=== PATIENT | female | born 1955 | race Caucasian/White ===

== ENCOUNTER → 2019-08-03 11:05 | Outpatient (CLI) | payer MEDICARE, SELFPAY ==
--- NOTE | ~2019-08-03 | XR_ITS ---
EXAMINATION: XR chest 2V EXAM DATE: 08/03/2019 11:38 INDICATION: Cough. TECHNIQUE: Frontal and lateral projections of the chest obtained and reviewed. Comparison is made to prior examination from 12/16/2017. FINDINGS: The lungs are clear. There are no pleural effusions. The cardiomediastinal silhouette is within normal limits. There is no pneumothorax suspected. The bones and soft tissues are unremarkab le. IMPRESSION: No acute cardiopulmonary findings. Reviewed, dictated and finalized at location A. ZAG STITCHER
== END ==
PROVIDERS: PCP Nurse Practitioner; Visit Provider Nurse Practitioner
DX: R05 Cough (principal)
CPT/HCPCS: 71046

== ENCOUNTER → 2019-08-15 12:18 | Outpatient (CLI) | payer MEDICARE, SELFPAY ==
--- NOTE | ~2019-08-15 | CT_ITS ---
EXAMINATION: CT abdomen pelvis wo con EXAM DATE: 08/15/2019 12:35 INDICATION: Right upper quadrant pain, nausea, diarrhea, weight loss, hypertension. TECHNIQUE: Spiral CT of the abdomen and pelvis was performed without contrast. Axial, coronal and s agittal images were reviewed. The dose-length product (DLP) for this examination was 805.15 mGy-cm. The exposure was tailored according to patient size (auto mA exposure control), and iterative recons truction (ASIR) was used as additional dose reduction technique. There is no prior study for compari son. FINDINGS: The liver, spleen, adrenal glands and pancreas are unremarkable. Gallbladder is unremarkab le. No biliary obstruction. There is no nephrolithiasis or hydronephrosis. The uterus is unremark able. The bladder is unremarkable. There is no retroperitoneal or pelvic lymphadenopathy. There is moderate scattered arteriosclerotic disease. The appendix is not positively visualized. There is no pericecal inflammatory change to suggest appe ndicitis. There is small to moderate-sized gastroesophageal hiatal hernia. There is gastroesophagea l reflux. There is expected amount of colonic stool. No free intraperitoneal gas. The heart is n ormal in size. There are no pericardial or pleural effusions. The lung bases are unremarkable. The re are no osteoblastic or osteolytic lesions identified. IMPRESSION: 1. No acute intra-abdominal findings. 2. Small to moderate hiatal hernia, gastroesophageal reflux. Reviewed, dictated and finalized at location A. RAL STERILE SUPPLY TECHNICIAN
== END ==
PROVIDERS: PCP Nurse Practitioner; Visit Provider Nurse Practitioner
DX: E83.52 Hypercalcemia (principal); K44.9 Diaphragmatic hernia without obstruction or gangrene; K21.9 Gastro-esophageal reflux disease without esophagitis
CPT/HCPCS: 74176

== ENCOUNTER 2019-08-15 14:56 | Inpatient (IN) | payer MEDICARE, SELFPAY ==
--- NOTE | ~2019-08-15 | US_ITS ---
US renal BI 08/16/2019 18:14 Procedure: Realtime transabdominal ultrasound of the kidneys and bladder. Indication: Acute renal failure Comparison: No prior studies for comparison. Findings: Renal echotexture is normal bilaterally without, contour deforming mass or renal calculus. There is mild left renal caliectasis. The right kidney measures 11.5 cm and left kidney measures 11.8 cm. Bladder within normal limits. Impression: 1: Mild left renal caliectasis. Reviewed, dictated and finalized at location A. ETCHER Impression: 1: Mild left renal caliectasis.
[2019-08-15 15:05] VITALS: BP 118/68; PULSE 100; RESP 19; TEMP 36.2; O2SAT 95
--- NOTE | 2019-08-15 15:42 | ED.RECABL ---
HPI - Recheck/Abnormal Lab/Rx General Chief Complaint: Recheck/Abnormal Lab/Rx Stated Complaint: low mag level Time Seen by Provider: 08/15/19 15:30 Source: patient and RN notes reviewed Mode of arrival: ambulatory Limitations: no limitations History of Present Illness HPI narrative: Pt is a 63 y/o female who presents to the ED with c/o abnormal lab results. She states she had blood work done at her PCP recently and was informed today of the results. She states she was told her magnesium levels were low and was prompted to come to the ED to be evaluated and treated via IV fluids. She reports nausea and vomiting since yesterday and generalized weakness, but denies diarrhea. She has been unable to keep her food down mainly. She states she has tried Zofran medication and shots of anti-nausea medication without much relief of her symptoms. Pt reports she had a CT scan of her ABD and pelvis done at [facility] without a formal diagnosis given. She states she has lost 25 pounds recently. complaint: abnormal lab Initial visit (ago): hour(s) (today) Context: called for abnormal lab result Associated symptoms: nausea and other (generalized weakness; vomiting) Related Data Home Medications Medication Instructions Recorded Confirmed amlodipine 2.5 mg tablet 2.5 mg PO DAILY 07/05/19 aspirin 81 mg tablet,delayed 81 mg PO DAILY 07/05/19 release blood sugar diagnostic #10 each 07/05/19 insulin lispro 100 unit/mL 15 unit SUB-Q BID ml 07/05/19 subcutaneous pen multivitamin,ll-bzlb-rhplsfal 1 tablet PO DAILY 07/05/19 pen needle, diabetic 31 gauge x #30 each 07/05/19 5/16 rosuvastatin 20 mg tablet 10 mg PO DAILY tablet 07/05/19 valsartan 160 1 tablet PO DAILY 07/05/19 mg-hydrochlorothiazide 25 mg tablet Allergies Allergy/AdvReac Type Severity Reaction Status Date / Time No Known Allergies Allergy Unverified 08/15/19 15:11 Review of Systems Review of Systems: All systems reviewed & are unremarkable except as noted in HPI and below Constitutional: Constitutional: Reports weakness (generalized) Gastrointestinal: Gastrointestinal: Denies diarrhea, Reports nausea and Reports vomiting PMFSH Past Medical History Medical History (Updated 08/15/19 @ 18:49 by Savage Johnston MD) Depression Diabetes GERD (gastroesophageal reflux disease) Hiatal hernia Hypercholesterolemia Mitral valve prolapse Peripheral neuropathy Pneumonia UTI (urinary tract infection) Surgical History Surgical History (Updated 08/15/19 @ 15:46 by Mylene Randhawa) History of arthroscopy of both knees Social History Social History Smoking status: Former smoker Smoking end date: 06/27/82 Alcohol intake: current Gender identity (if verbalized by the patient): Female Exam Narrative: Exam Narrative: GENERAL: Well-appearing, well-nourished, and in no acute distress. HEAD: Normocephalic, atraumatic. ENT: Mucous membranes moist. CHEST: Clear to auscultation. No respiratory distress. HEART: Regular rate and rhythm. Normal peripheral pulses. ABDOMEN: Soft, nontender, nondistended. EXTREMITIES: Normal range of motion. No edema. SKIN: Warm, dry, no rash. NEURO: Alert and oriented x3. PSYCH: Normal mood and affect. Course Course Emergency Course: Informed of results. Admit to hospitalist service for IV fluid and magnesium replacement. May require nephrology consultation if renal function is not improving. Vital Signs Vital signs: Vital Signs Temperature 97.1 F L 08/15/19 15:05 Pulse Rate 100 08/15/19 15:05 Respiratory Rate 08/15/19 15:05 Blood Pressure 118/68 08/15/19 15:05 Pulse Oximetry 95 08/15/19 15:05 Temperature 97.1 F L 08/15/19 15:05 Pulse Rate 100 08/15/19 15:05 Respiratory Rate 08/15/19 15:05 Blood Pressure 118/68 08/15/19 15:05 Pulse Oximetry 95 08/15/19 15:05 MDM - Recheck/Abnormal Lab/Rx Lab Data Re
[2019-08-15 16:05] LABS: Basophils Percent Auto 0.3 % (0.2-1.2); Eosinophils Absolute Auto 0.1 K/mm3 (0-0.3); Eosinophils Percent Auto 1.2 % (0-4.4); Hematocrit 35.7 % (37.0-47.0); Hemoglobin 11.3 g/dL (12.0-15.0); Immature Granulocyte Absolute 0.04 K/mm3 (0.00-0.031); Immature Granulocyte Percent A 0.4 % (0-0.5); Lymphocytes Absolute Auto 2.37 K/mm3 (0.9-3.2); Lymphocytes Percent Auto 24.1 % (18.3-44.2); Mean Corpuscular HGB Conc 31.7 g/dl (32-36); Mean Corpuscular Hemoglobin 26.7 pg (26-34); Mean Corpuscular Volume 84.4 fl (80-100); Mean Platelet Volume 10.8 fl (7.4-10.4); Monocytes Absolute Auto 0.9 K/mm3 (0.1-0.6); Monocytes Percent Auto 8.8 % (2.6-8.5); Neutrophils Absolute Auto 6.4 K/mm3 (1.3-6.7); Neutrophils Percent Auto 65.2 % (45.5-73.1); Platelet Count Result 412 k/mm3 (150-375); Red Blood Count 4.23 M/mm3 (4.2-5.4); White Blood Count 9.8 K/mm3 (4.5-10.0)
[2019-08-15 16:17] LABS: Blood Urea Nitrogen 35 mg/dL (7-17); Calcium 9.3 mg/dL (8.4-10.2); Carbon Dioxide 25 mmol/L (22-30); Chloride 89 mmol/L (98-107); Estimated CRCL calculation 23 ml/min; Estimated Glomerular Filt Rate 23; Glucose 176 mg/dL (65-105); Potassium 3.2 mmol/L (3.4-5.0); Sodium 134 mmol/L (137-145)
[2019-08-15] MEDS: PROMETHAZINE HCL 25 MG/ML AMPUL 12.5 MG IV PUSH (16:51)
[2019-08-15] MEDS: SODIUM CHLORIDE 0.9% IV 1,000 ML 999 ML IV CONT (16:51)
[2019-08-15 18:46] VITALS: BP 115/73; PULSE 93; RESP 20; O2SAT 100
[2019-08-15] MEDS: MAGNESIUM SULF 2 GM/WATER 50ML 2 GM/50 ML BAG IVPB (18:52)
[2019-08-15 19:36] VITALS: BP 102/67; PULSE 89; RESP 13; O2SAT 100
[2019-08-15 21:05] LABS: Glucose Point of Care 148 (65-105)
[2019-08-15] MEDS: SODIUM CHLORIDE 0.9% IV 1,000 ML 125 ML IV CONT (21:47)
[2019-08-15 21:50] VITALS: BP 116/67; PULSE 89; RESP 18; TEMP 36; O2SAT 100; BMI 31.6
--- NOTE | 2019-08-15 21:59 | PC.NURSE ---
This patient, Elke Pink, was admitted to Medical Room 260-01 at 1950. Patient/family oriented to hospital policies and general routines including ID bracelet, bed and alarms, visiting hours, pain management, procedures, bathroom and other care routines, personal items, smoking policy, room service/diet, and visiting hours. Valuables list has been completed. Information on how to activate the Rapid Response Team has been discussed. Patient/Family are encouraged to report perceived risks to care and to ask questions if they do not understand what they are told or what they should do.
--- NOTE | 2019-08-16 05:29 | PM.IMHP ---
H&P: HPI History of Present Illness Chief complaint: acute renal failure/hypomagnesemia Narrative: This is a pleasant 63-year-old diabetic female who presented to the hospital today secondary to abnormal lab values. The patient recently had blood work done by her primary care doctor and was referred to the hospital for low magnesium. On arrival to the hospital the patient was found to have a magnesium level of 1.0. Patient received 2 g of IV magnesium in the ER last night. She reports increased nausea and vomiting for the past 6 weeks which has been debilitating for her. Her nausea and vomiting is associated with any food or fluid intake and she tells me she has not been able to keep anything down. She reports 25 lb weight loss over the past 6 weeks. Associated symptoms include weakness. She also reports loose stools. She has had intermittent muscle cramping recently. The patient has no previous history of abnormal kidney function. Tonight the patient was found to have acute kidney injury. She reports that she recently just started taking Ozempic for her diabetes 6 weeks ago. She is also known to take Advil every single night. She has not been exposed to contrast recently. Up until now the patient has only been treated with symptomatic therapy for her nausea and vomiting. On my encounter with the patient this morning she denies any fever, chills, shortness of breath, chest pain, palpitations, abdominal pain, vomiting overnight, dysuria, hematuria, rectal bleeding, or other symptoms. The patient has been admitted to the hospital for her acute renal failure and hypomagnesemia. Review of Systems Review of Systems: All systems reviewed & are unremarkable except as noted in HPI and below PMFSH Past Medical History Medical History (Updated 08/16/19 @ 05:47 by Ángel Tanner MD) Depression Diabetes GERD (gastroesophageal reflux disease) Hiatal hernia Hypercholesterolemia Mitral valve prolapse Peripheral neuropathy Pneumonia UTI (urinary tract infection) Surgical History Surgical History (Updated 08/16/19 @ 05:34 by Ángel Tanner MD) History of arthroscopy of both knees History of foot surgery Family History Family History Grandparent Family history of cardiovascular disease Diabetes mellitus Mother Hypertension Chronic obstructive pulmonary disease Other Depression Family history of blood dyscrasia Family history of cataracts Family history of glaucoma Family history of hearing loss Family history of kidney disease Family history of malignant neoplasm Family history of mental disorder Family history of obesity Social History Social History Smoking status: Former smoker Smoking end date: 06/27/82 Alcohol intake: never Substance use: never Substance use type: does not use Gender identity (if verbalized by the patient): Female Spiritual care concerns: Yes Agree to blood products: Yes Meds Home Medications and Allergies Home Medications Medication Instructions Recorded Confirmed Type amlodipine 2.5 mg tablet 2.5 mg PO DAILY 07/05/19 08/15/19 History aspirin 81 mg tablet,delayed 81 mg PO DAILY 07/05/19 08/15/19 History release gabapentin 600 mg tablet 600 mg PO TID #270 tablet 07/05/19 08/15/19 Rx insulin lispro 100 unit/mL 15 unit SUB-Q BID ml 07/05/19 08/15/19 History subcutaneous pen metformin 500 mg tablet,extended 1,000 mg PO BID #360 tablet 07/05/19 08/15/19 Rx release 24 hr multivitamin,fs-ggfy-wljcpwnc 1 tablet PO DAILY 07/05/19 08/15/19 History rosuvastatin 20 mg tablet 10 mg PO DAILY tablet 07/05/19 08/15/19 History semaglutide 1 mg/dose (2 mg/1.5 1 mg SUB-Q WEEKLY #9 ml 07/05/19 08/15/19 Rx mL) subcutaneous pen injector valsartan 160 1 tablet PO DAILY 07/05/19 08/15/19 History mg-hydrochlorothiazide 25 mg tablet esomeprazole magnesium
[2019-08-16] MEDS: SODIUM CHLORIDE 0.9% IV 1,000 ML 125 ML IV CONT ×2 (05:58→17:06)
[2019-08-16 05:59] LABS: Basophils Percent Auto 0.2 % (0.2-1.2); Eosinophils Absolute Auto 0.1 K/mm3 (0-0.3); Eosinophils Percent Auto 2.4 % (0-4.4); Hematocrit 31.6 % (37.0-47.0); Hemoglobin 10.4 g/dL (12.0-15.0); Immature Granulocyte Absolute 0.01 K/mm3 (0.00-0.031); Immature Granulocyte Percent A 0.2 % (0-0.5); Lymphocytes Absolute Auto 1.23 K/mm3 (0.9-3.2); Lymphocytes Percent Auto 29.9 % (18.3-44.2); Mean Corpuscular HGB Conc 32.9 g/dl (32-36); Mean Corpuscular Hemoglobin 27.2 pg (26-34); Mean Corpuscular Volume 82.5 fl (80-100); Monocytes Absolute Auto 0.4 K/mm3 (0.1-0.6); Neutrophils Absolute Auto 2.4 K/mm3 (1.3-6.7); Neutrophils Percent Auto 57.3 % (45.5-73.1); Platelet Count Result 290 k/mm3 (150-375); Red Blood Count 3.83 M/mm3 (4.2-5.4); Red Cell Distribution Width 14.8 % (11.5-14.5); White Blood Count 4.1 K/mm3 (4.5-10.0)
[2019-08-16 06:09] VITALS: BP 124/63; PULSE 96; RESP 18; TEMP 36.7; O2SAT 97
[2019-08-16 06:15] LABS: Magnesium 1.6 mg/dL (1.6-2.3)
[2019-08-16 06:16] LABS: Blood Urea Nitrogen 28 mg/dL (7-17); Calcium 8.6 mg/dL (8.4-10.2); Carbon Dioxide 25 mmol/L (22-30); Chloride 96 mmol/L (98-107); Estimated CRCL calculation 38 ml/min; Estimated Glomerular Filt Rate 42; Glucose 181 mg/dL (65-105); Potassium 3.1 mmol/L (3.4-5.0); Sodium 136 mmol/L (137-145)
--- NOTE | 2019-08-16 08:00 | PC.NURSE ---
Spoke with GI lab about medications. They said to give blood Amlodipine with a sip of water. All other medications are to be held until after procedure.
[2019-08-16] MEDS: AMLODIPINE BESYLATE 2.5 MG TABLET PO (08:52)
[2019-08-16 09:09] LABS: Glucose Point of Care 155 (65-105)
[2019-08-16 09:21] LABS: Add Urine Microscopic? YES; Appearance Urine Clear (Clear); Bacteria Urine Trace /hpf; Bilirubin Urine Negative (Negative); Blood Urine Negative (Negative); Color Urine Straw (Yellow); Glucose Urine UA 1+ mg/dL (Negative); Ketones Urine Negative (Negative); Leukocyte Esterase Ur Negative LEU/UL (NEGATIVE); Mucus Urine Rare /lpf; Nitrate Urine Negative (Negative); Protein Urine Negative (Negative); RBC Urine 0-2 /hpf (0-2); Squamous Epithelial Cell Urine Rare /hpf (Few); Urobilinogen Urine Negative mg/dL (<2.0); WBC Urine 0-3 /hpf (0-3)
[2019-08-16 12:33] LABS: Glucose Point of Care 132 (65-105)
[2019-08-16 13:12] VITALS: BMI 31.6
--- NOTE | 2019-08-16 13:31 | WPDANESEPPF ---
Anes - Initial Pre Proc Eval Procedure: Operation Date: 08/16/19 15:00 Proposed Procedures p Esophagogastroduodenoscopy - Andrea Roe MD Date/Time: 08/16/19 13:31 Surgeon: Arnol Rivera MD Pre Op Diagnosis: acute renal failure/hypomagnesemia Patient Data Age: 63 Gender: F Height: 5 ft 1 in Weight: 75.9 kg Last Vital Signs Temp 98.1 F 08/16/19 06:09 Pulse 96 08/16/19 06:09 Resp 18 08/16/19 06:09 BP 124/63 08/16/19 06:09 Pulse Ox 97 08/16/19 06:09 Allergies Allergy/AdvReac Type Severity Reaction Status Date / Time No Known Allergies Allergy Unverified 08/15/19 15:11 Home Medications Medication Instructions Recorded Confirmed Type amlodipine 2.5 mg tablet 2.5 mg PO DAILY 07/05/19 08/15/19 History aspirin 81 mg tablet,delayed 81 mg PO DAILY 07/05/19 08/15/19 History release gabapentin 600 mg tablet 600 mg PO TID #270 tablet 07/05/19 08/15/19 Rx insulin lispro 100 unit/mL 15 unit SUB-Q BID ml 07/05/19 08/15/19 History subcutaneous pen metformin 500 mg tablet,extended 1,000 mg PO BID #360 tablet 07/05/19 08/15/19 Rx release 24 hr multivitamin,fu-krql-ruuvvhvh 1 tablet PO DAILY 07/05/19 08/15/19 History rosuvastatin 20 mg tablet 10 mg PO DAILY tablet 07/05/19 08/15/19 History semaglutide 1 mg/dose (2 mg/1.5 1 mg SUB-Q WEEKLY #9 ml 07/05/19 08/15/19 Rx mL) subcutaneous pen injector valsartan 160 1 tablet PO DAILY 07/05/19 08/15/19 History mg-hydrochlorothiazide 25 mg tablet esomeprazole magnesium [Nexium] 20 mg PO DAILY 08/15/19 08/15/19 History ibuprofen-diphenhydramine cit 1 cap PO HS 08/15/19 08/15/19 History [Advil PM] Laboratory Tests 08/15/19 08/15/19 08/15/19 15:58 15:58 20:44 WBC 9.8 K/mm3 K/mm3 (4.5-10.0) RBC 4.23 M/mm3 M/mm3 (4.2-5.4) Hgb 11.3 g/dL L g/dL (12.0-15.0) Hct 35.7 % L % (37.0-47.0) MCV 84.4 fl fl (80-100) MCH 26.7 pg pg (26-34) MCHC 31.7 g/dl L g/dl (32-36) RDW 15.0 % H % (11.5-14.5) Plt Count 412 k/mm3 H k/mm3 (150-375) MPV 10.8 fl H fl (7.4-10.4) Immature Gran % (Auto) 0.4 % % (0-0.5) Neut % (Auto) 65.2 % % (45.5-73.1) Lymph % (Auto) 24.1 % % (18.3-44.2) [place] % (Auto) 8.8 % H % (2.6-8.5) Eos % (Auto) 1.2 % % (0-4.4) Baso % (Auto) 0.3 % % (0.2-1.2) Lymph # (Auto) 2.37 K/mm3 K/mm3 (0.9-3.2) [place] # (Auto) 0.9 K/mm3 H K/mm3 (0.1-0.6) Eos # (Auto) 0.1 K/mm3 K/mm3 (0-0.3) Baso # (Auto) 0.0 K/mm3 K/mm3 (0.0-0.1) Abs Immat Gran (auto) 0.04 K/mm3 H K/mm3 (0.00-0.031) Absolute Neuts (auto) 6.4 K/mm3 K/mm3 (1.3-6.7) Absolute Nucleated RBC 0.0 K/mm3 K/mm3 (0.0-0.012) Nucleated RBC % 0.0 % % (0.0-0.2) Sodium 134 mmol/L L mmol/L (137-145) Potassium 3.2 mmol/L L mmol/L (3.4-5.0) Chloride 89 mmol/L L mmol/L (98-107) Carbon Dioxide 25 mmol/L mmol/L (22-30) BUN 35 mg/dL H mg/dL (7-17) Creatinine 2.20 mg/dL H mg/dL (0.7-1.0) Estim Creat Clear Calc 23 ml/min ml/min Estimated GFR 23 L (59 - ) Glucose 176 mg/dL H mg/dL (65-105) POC Capillary Glucose 148 mg/dl H mg/dl (65-105) Calcium 9.3 mg/dL mg/dL (8.4-10.2) Magnesium 1.0 mg/dL L mg/dL (1.6-2.3) Urine Color Urine Appearance Urine pH Ur Specific [place] Urine Protein Urine Glucose (UA) Urine Ketones Ur Blood (Man) Urine Nitrate Urine Bilirubin Urine Urobilinogen Ur Leukocyte Esterase Urine RBC Urine WBC Ur Squamous Epith Cells Urine Bacteria Hyaline Casts U
--- NOTE | 2019-08-16 13:56 | PC.NURSE ---
To GI Lab per maría, IV saline locked.
[2019-08-16 14:09] LABS: Glucose Point of Care 134 (65-105)
[2019-08-16 14:10] VITALS: BP 125/70; PULSE 97; RESP 18; TEMP 36.8; O2SAT 98
[2019-08-16] MEDS: LACTATED RINGERS 1,000 ML 150 ML IV CONT (14:15)
[2019-08-16 15:23] VITALS: BP 92/48; PULSE 96; RESP 20; O2SAT 99
[2019-08-16 15:33] VITALS: BP 101/52; PULSE 93; RESP 20; O2SAT 99
[2019-08-16 15:44] VITALS: BP 115/62; PULSE 93; RESP 20; O2SAT 100
--- NOTE | 2019-08-16 16:11 | PC.NURSE ---
Returned from GI Lab. Report received from Polly.
--- NOTE | 2019-08-16 16:39 | PC.NURSE ---
Patients blood sugar was 119 at 1635. Patient has 15 units of Novolog ordered with meals. Patient stated at home she does not normally take her meal time insulin when her blood sugar is that low. Notified Dr. Rivera. He said it was okay to hold the 1600 dose of Novolog.
[2019-08-16 16:45] LABS: Glucose Point of Care 119 (65-105)
--- NOTE | 2019-08-16 17:11 | WPDGICN ---
Assessment and Plan Assessment and plan (1) Nausea and vomiting: Qualifiers: Vomiting type: unspecified Vomiting Intractability: non-intractable Qualified Code(s): R11.2 - Nausea with vomiting, unspecified Code(s): R11.2 - Nausea with vomiting, unspecified Status: Chronic Assessment and Plan: we will proceed with EGD, assess if PUD (she is taking ibuprofen in daily basis), etc. Continue with ppi for now. (2) GERD (gastroesophageal reflux disease): Qualifiers: Esophagitis presence: esophagitis presence not specified Qualified Code(s): K21.9 - Gastro-esophageal reflux disease without esophagitis Code(s): K21.9 - Gastro-esophageal reflux disease without esophagitis Status: Acute (3) Diabetes: Qualifiers: Diabetes mellitus type: type 2 Diabetes mellitus termite technician insulin use: without group home use Diabetes mellitus complication status: without complication Qualified Code(s): E11.9 - Type 2 diabetes mellitus without complications Code(s): E11.9 - Type 2 diabetes mellitus without complications Status: Chronic (4) Acute kidney injury: Code(s): N17.9 - Acute kidney failure, unspecified Status: Acute Assessment and Plan: poor oral intake, monitor renal function, iv fluids. (5) Hypomagnesemia: Code(s): E83.42 - Hypomagnesemia Status: Acute Assessment and Plan: treated, monitor lytes GI Consult Note Consult date/time: 08/16/19 17:11 reason for consult: N/V, anorexia HPI: Elke Pink is a 63 year old female with history of diabetes who was admitted after her doctor found low magnesium (it was 1 and treated in ER). He also has been complaining of 7 weeks of increased nausea and vomiting which has been debilitating for her. She has not been able to keep anything down also weight loss because of tehe same and just feeling weak. She is taking advil pm every night, also nexium 20 mg daily because GERD but never had EGD. Also found to have RODGER. Now she is NPO and we will proceed with EGD. Review of Systems Constitutional: Constitutional: Reports poor appetite and Reports weight loss Eyes: Eyes: Denies blurry vision ENT: Reports Normal hearing present, Denies headache(s) and Denies neck pain Cardiovascular: Cardiovascular: Denies chest pain and Denies dyspnea Respiratory: Respiratory: Denies dyspnea Gastrointestinal: Gastrointestinal: Reports nausea and Reports vomiting Genitourinary: Genitourinary: Denies dysuria Musculoskeletal: Musculoskeletal: Denies neck pain Integumentary/Breasts: Skin/Breast: Denies dry skin Neurologic: Reports Normal hearing present and Denies headache(s) Psychiatric: Psychiatric: Denies anxiety Endocrine: Endocrine: Denies change in body appearance Hematologic/Lymphatic: Hematologic/Lymphatic: Denies easy bleeding Allergic/Immunologic: Allergic/Immunologic: Denies urticaria PMFSH Past Medical History Medical History (Updated 08/16/19 @ 05:47 by Ángel Tanner MD) Depression Diabetes GERD (gastroesophageal reflux disease) Hiatal hernia Hypercholesterolemia Mitral valve prolapse Peripheral neuropathy Pneumonia UTI (urinary tract infection) Surgical History Surgical History (Updated 08/16/19 @ 05:34 by Ángel Tanner MD) History of arthroscopy of both knees History of foot surgery Family History Family History Grandparent Family history of cardiovascular disease Diabetes mellitus Mother Hypertension Chronic obstructive pulmonary disease Other Depression Family history of blood dyscrasia Family history of cataracts Family history of glaucoma Family history of hearing loss Family history of kidney disease Family history of malignant neoplasm Family history of mental disorder Family history of obesity Social History Social History
--- NOTE | 2019-08-16 17:51 | PC.NURSE ---
On 08/16/19, the it desktop support technician Chapin Hanks, provided care and completed [facility] documentation on this patient. I have reviewed the student's documentation and agree with the findings.
--- NOTE | 2019-08-16 18:59 | PM.IMPN ---
Progress Note: A&P Assessment and Plan (1) Acute kidney injury: Code(s): N17.9 - Acute kidney failure, unspecified Status: Acute Assessment and Plan: May be drug induced after starting Ozempic versus volume depletion from nausea and vomiting. Patient also has been taking Advil daily which could be impacting the renal function. Creatinine was 2.2 on admission and has dropped to 1.3 today. UA is clear. will continue IV fluids and repeat renal function in the morning.. (2) Barretts esophagus: Code(s): K22.70 - Mae's esophagus without dysplasia Status: Acute Assessment and Plan: EGD showing evidence of Mae's esophagus. Patient on Nexium chronically at home. Biopsies taken. Follow up on results. Appreciate GI input. (3) Gastritis: Code(s): K29.70 - Gastritis, unspecified, without bleeding Status: Acute Assessment and Plan: EGD showing gastritis. Will continue Protonix b.i.d.. Follow up on biopsy results. (4) Hypomagnesemia: Code(s): E83.42 - Hypomagnesemia Status: Acute Assessment and Plan: Hypomagnesemia with hypokalemia. Magnesium level better today. Will continue monitor magnesium level and replace as needed. Potassium low this morning and will replace. Continue to monitor. (5) Nausea and vomiting: Qualifiers: Vomiting Intractability: non-intractable Vomiting type: unspecified Qualified Code(s): R11.2 - Nausea with vomiting, unspecified Code(s): R11.2 - Nausea with vomiting, unspecified Status: Chronic Assessment and Plan: May be secondary to undiagnosed gastroparesis or from the Ozempic or from the gastritis and Mae's esophagus. Patient improving with symptomatic care. Continue to hold Ozempic. Consider gastric emptying scan in the morning. (6) Diabetes: Qualifiers: Diabetes mellitus complication status: without complication Diabetes mellitus petroleum terminal plant operator insulin use: without mcc use Diabetes mellitus type: type 2 Qualified Code(s): E11.9 - Type 2 diabetes mellitus without complications Code(s): E11.9 - Type 2 diabetes mellitus without complications Status: Chronic Assessment and Plan: A1c 8.2 in June. Metformin and Ozempic on hold. Glucose reasonable at this time. Continue accuchecks with SSI Coverage. Hypoglycemic protocol. May need to resume Lantus at discharge. (7) Hypercholesterolemia: Code(s): E78.00 - Pure hypercholesterolemia, unspecified Status: Chronic Assessment and Plan: Continue <del>C</del>restor. Check LFTs (8) Peripheral neuropathy: Qualifiers: Peripheral neuropathy type: polyneuropathy, unspecified Qualified Code(s): G62.9 - Polyneuropathy, unspecified Code(s): G62.9 - Polyneuropathy, unspecified Status: Chronic Assessment and Plan: Stable. continue gabapentin. (9) GERD (gastroesophageal reflux disease): Qualifiers: Esophagitis presence: esophagitis presence not specified Qualified Code(s): K21.9 - Gastro-esophageal reflux disease without esophagitis Code(s): K21.9 - Gastro-esophageal reflux disease without esophagitis Status: Acute Assessment and Plan: As above. Continue proton pump inhibitor. (10) HTN (hypertension), benign: Code(s): I10 - Essential (primary) hypertension Status: Acute Assessment and Plan: Blood pressure reviewed on 08/16/2019.. Blood pressure well controlled. continue amlodipine. Valsartan/HCTZ on hold. Subjective Date/time seen: 08/16/19 18:59 Interval history: 63yo female with diabetes here for acute kidney injury. Patient also has been having episodes of nausea and vomiting with weight loss. Patient feels better today. Has some nausea earlier but this has resolved. No chest pain or shortness of breath. Tolerated the endoscopy well. She feels her symptoms be
[2019-08-16] MEDS: POTASSIUM CHLORIDE 20 MEQ TABLET 40 MEQ PO (20:23)
[2019-08-16] MEDS: ONDANSETRON INJ 4 MG/2 ML VIAL IV PUSH (20:23)
[2019-08-16] MEDS: PANTOPRAZOLE 40 MG TABLET PO (20:45)
[2019-08-16 21:26] LABS: Glucose Point of Care 140 (65-105)
[2019-08-16 22:00] VITALS: BP 144/77; PULSE 79; RESP 21; TEMP 37.1; O2SAT 100
[2019-08-17] MEDS: SODIUM CHLORIDE 0.9% IV 1,000 ML 125 ML IV CONT ×2 (05:01→10:11)
[2019-08-17 06:00] VITALS: BP 139/74; PULSE 102; RESP 20; TEMP 36.9; O2SAT 98
[2019-08-17 06:00] LABS: Albumin Level 3.8 g/dL (3.5-5.1); Blood Urea Nitrogen 11 mg/dL (7-17); Calcium 8.7 mg/dL (8.4-10.2); Carbon Dioxide 26 mmol/L (22-30); Chloride 100 mmol/L (98-107); Estimated CRCL calculation 60 ml/min; Estimated Glomerular Filt Rate > 60; Glucose 145 mg/dL (65-105); Magnesium 1.2 mg/dL (1.6-2.3); Phosphorus 2.4 mg/dL (2.5-4.5); Potassium 3.6 mmol/L (3.4-5.0); Sodium 141 mmol/L (137-145)
[2019-08-17] MEDS: MAGNESIUM SULF 2 GM/WATER 50ML 2 GM/50 ML BAG IVPB (07:58)
[2019-08-17] MEDS: POTASSIUM/PHOSPHORUS/SODIUM 1.5 GM PACKET 1 PACKET PO (07:59)
[2019-08-17] MEDS: ROSUVASTATIN 10 MG TABLET PO (08:04)
[2019-08-17] MEDS: THERAPEUTIC MULTIVITAMINS/MINERALS TAB (*BKC) 1 TABLET PO (08:04)
[2019-08-17] MEDS: PANTOPRAZOLE 40 MG TABLET PO ×2 (08:04→21:18)
[2019-08-17] MEDS: AMLODIPINE BESYLATE 2.5 MG TABLET PO (08:04)
[2019-08-17] MEDS: ONDANSETRON INJ 4 MG/2 ML VIAL IV PUSH ×2 (08:09→16:07)
[2019-08-17 09:25] LABS: Glucose Point of Care 177 (65-105)
[2019-08-17] MEDS: INSULIN ASPART (*BKC) 100 UNITS/ML SUB-Q (11:43)
[2019-08-17 13:51] LABS: Glucose Point of Care 204 (65-105)
[2019-08-17 14:00] VITALS: BP 140/76; PULSE 91; RESP 16; TEMP 37.2; O2SAT 100
--- NOTE | 2019-08-17 17:09 | PM.IMPN ---
Progress Note: A&P Assessment and Plan (1) Acute kidney injury: Code(s): N17.9 - Acute kidney failure, unspecified Status: Acute Assessment and Plan: May be drug induced after starting Ozempic versus volume depletion from nausea and vomiting. Patient also has been taking Advil daily which could be impacting the renal function. Creatinine was 2.2 on admission and has dropped to 0.8 today. UA is clear. Will stop IV fluids. Continue to monitor. (2) Barretts esophagus: Code(s): K22.70 - Mae's esophagus without dysplasia Status: Acute Assessment and Plan: EGD showing evidence of Mae's esophagus. Patient on Nexium chronically at home. Biopsies taken. Follow up on results. Appreciate GI input. (3) Gastritis: Code(s): K29.70 - Gastritis, unspecified, without bleeding Status: Acute Assessment and Plan: EGD showing gastritis. Will continue Protonix b.i.d.. Follow up on biopsy results. Add Carafate. (4) Hypomagnesemia: Code(s): E83.42 - Hypomagnesemia Status: Acute Assessment and Plan: Hypomagnesemia with hypokalemia. Magnesium level 1.2 today and this was replaced. Will continue monitor magnesium level and replace as needed. Potassium 3.6 this morning. Continue to monitor. (5) Nausea and vomiting: Qualifiers: Vomiting Intractability: non-intractable Vomiting type: unspecified Qualified Code(s): R11.2 - Nausea with vomiting, unspecified Code(s): R11.2 - Nausea with vomiting, unspecified Status: Chronic Assessment and Plan: May be secondary to undiagnosed gastroparesis or from the Ozempic or from the gastritis and Mae's esophagus. Patient still having n/v with abdominal pain. May be related to the gastritis that may need some time to heal. Recommended soft foods/liquids. Will add supplements. Continue to hold Ozempic indefinitely. Add Carafate. Schedule Reglan. (6) Diabetes: Qualifiers: Diabetes mellitus complication status: without complication Diabetes mellitus middle or intermediate school principal insulin use: without fci use Diabetes mellitus type: type 2 Qualified Code(s): E11.9 - Type 2 diabetes mellitus without complications Code(s): E11.9 - Type 2 diabetes mellitus without complications Status: Chronic Assessment and Plan: A1c 8.2 in June. Metformin and Ozempic on hold. Glucose reasonable except 204 before lunch. Continue accuchecks with SSI Coverage. Hypoglycemic protocol. (7) Hypercholesterolemia: Code(s): E78.00 - Pure hypercholesterolemia, unspecified Status: Chronic Assessment and Plan: Continue Crestor. Check LFTs (8) Peripheral neuropathy: Qualifiers: Peripheral neuropathy type: polyneuropathy, unspecified Qualified Code(s): G62.9 - Polyneuropathy, unspecified Code(s): G62.9 - Polyneuropathy, unspecified Status: Chronic Assessment and Plan: Stable. Continue gabapentin. (9) GERD (gastroesophageal reflux disease): Qualifiers: Esophagitis presence: esophagitis presence not specified Qualified Code(s): K21.9 - Gastro-esophageal reflux disease without esophagitis Code(s): K21.9 - Gastro-esophageal reflux disease without esophagitis Status: Acute Assessment and Plan: As above. Continue proton pump inhibitor. (10) HTN (hypertension), benign: Code(s): I10 - Essential (primary) hypertension Status: Acute Assessment and Plan: Blood pressure reviewed on 08/17/2019. Blood pressure well controlled. Continue amlodipine. Valsartan/HCTZ remains on hold. Subjective Date/time seen: 08/17/19 17:09 Interval history: 63yo female with diabetes here for acute kidney injury. Patient continues to have nausea most the day today. She was eventually able to tolerate some oral intake. She feels poorly. She denies any shortness breath or c
[2019-08-17] MEDS: METOCLOPRAMIDE HCL INJ 10 MG/2 ML VIAL 5 MG IV PUSH ×2 (17:39→21:15)
[2019-08-17 18:35] LABS: Glucose Point of Care 130 (65-105)
--- NOTE | 2019-08-17 19:09 | WPDGIPROGNO ---
Progress Note: A&P Assessment and Plan (1) Gastritis: Qualifiers: Gastritis type: unspecified gastritis Chronicity: unspecified Gastritis bleeding: presence of bleeding unspecified Qualified Code(s): K29.70 - Gastritis, unspecified, without bleeding Code(s): K29.70 - Gastritis, unspecified, without bleeding Status: Acute Assessment and Plan: can explain partially symptoms, she could have also dysmotility- add reglan and carafate for now, continue with ppi (2) Barretts esophagus: Qualifiers: Mae's esophagus type: without dysplasia Qualified Code(s): K22.70 - Mae's esophagus without dysplasia Code(s): K22.70 - Mae's esophagus without dysplasia Status: Acute Assessment and Plan: long segment, pending biopsies- new diagnosis (3) Nausea and vomiting: Qualifiers: Vomiting type: unspecified Vomiting Intractability: non-intractable Qualified Code(s): R11.2 - Nausea with vomiting, unspecified Code(s): R11.2 - Nausea with vomiting, unspecified Status: Chronic Assessment and Plan: supportive care, antiemetics she may have also gastroparesis, will get gastric emptying study as outpatient (4) Diabetes: Qualifiers: Diabetes mellitus type: type 2 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: without bridal gown fitter use Diabetes mellitus complication status: without complication Qualified Code(s): E11.9 - Type 2 diabetes mellitus without complications Code(s): E11.9 - Type 2 diabetes mellitus without complications Status: Chronic (5) Acute kidney injury: Code(s): N17.9 - Acute kidney failure, unspecified Status: Acute Assessment and Plan: resolved with medical therapy Subjective Date/time seen: 08/17/19 19:09 Interval history: still with nausea and feeling sick after vomiting Review of Systems Review of Systems: All systems reviewed & are unremarkable except as noted in HPI and below Exam Const: General: comfortable and no acute distress HENMT: General nose exam: Normal nares present Eyes: General: appearance normal, both eyes and all related structures Neck: Neck: no JVD Resp: Auscultation: clear to auscultation bilaterally Cardio: Rate: regular rate Rhythm: regular rhythm GI: Inspection: non-distended GI Palp: Yes Soft to palpation Skin: General skin exam: normal color Neuro: General: gait normal Speech: normal speech Extrem: General: normal to inspection Psych: Mental Status: mental status grossly normal Objective Data Vital Signs Vital Signs: Vital Signs - 24 hr 08/16/19 22:00 08/17/19 06:00 08/17/19 14:00 Temperature 98.8 F 98.4 F 98.9 F Pulse Rate 79 102 H 91 Respiratory Rate 21 H 20 16 Blood Pressure 144/77 H 139/74 140/76 Pulse Oximetry 100 98 100 Intake/Output Intake/Output: Intake & Output 08/14/19 08/15/19 08/16/19 08/17/19 23:59 23:59 23:59 23:59 Intake Total 1000 3100 4640 Output Total 1875 3250 Balance 1000 1225 1390 Meds/Results Medications: Active Medications Generic Name Dose Route Start Last Admin Trade Name Freq PRN Reason Stop Dose Admin Acetaminophen 650 mg 08/15/19 18:10 Tylenol Tablet PO Q4H PRN Mild Pain (1-3) or Fever Amlodipine Besylate 2.5 mg 08/16/19 09:00 08/17/19 08:04 Norvasc PO 2.5 mg DAILY JOSÉ MANUEL Administration Dextrose 12.5 gm 08/16/19 04:26 Dextrose 50% Syringe IV PUSH PRN PRN Hypoglycemia Protocol Glucagon 1 mg 08/16/19 04:26 Glucagon For Inj IM PRN PRN Hypoglycemia Protocol Glucose 15 gm 08/16/19 04:26 Glutose 15 PO PRN PRN Hypoglycemia Protocol Dextrose 1,000 mls @ 100 mls/hr 08/16/19 04:26 Dextrose 5% 1,000 Ml IVPB PRN PRN Hypoglycemia Protocol Insulin Aspart 3 - 6 units 08/16/19 08:00 08/17/19 17:45 Novolog SUB-Q Not Given TIDWM [facility] Protocol Insulin Aspart
[2019-08-17] MEDS: SUCRALFATE SUSP 100 MG/ML 10 ML UDC 1000 MG PO (21:18)
[2019-08-17 21:42] LABS: Glucose Point of Care 143 (65-105)
[2019-08-17 22:00] VITALS: BP 151/80; PULSE 107; RESP 20; TEMP 36.6; O2SAT 99
[2019-08-18] MEDS: ONDANSETRON INJ 4 MG/2 ML VIAL IV PUSH ×2 (04:31→09:05)
[2019-08-18 05:53] LABS: Hematocrit 32.3 % (37.0-47.0); Hemoglobin 10.4 g/dL (12.0-15.0); Mean Corpuscular HGB Conc 32.2 g/dl (32-36); Mean Corpuscular Volume 83.9 fl (80-100); Mean Platelet Volume 10.5 fl (7.4-10.4); Platelet Count Result 288 k/mm3 (150-375); Red Blood Count 3.85 M/mm3 (4.2-5.4); Red Cell Distribution Width 14.8 % (11.5-14.5); White Blood Count 3.4 K/mm3 (4.5-10.0)
[2019-08-18 06:00] VITALS: BP 150/75; PULSE 93; RESP 18; TEMP 36.5; O2SAT 100
[2019-08-18 06:06] LABS: Alanine Aminotransferase 29 U/L (4-35); Albumin Level 3.8 g/dL (3.5-5.1); Alkaline Phosphatase 81 U/L (38-126); Aspartate Amino Transferase 31 U/L (14-36); Bilirubin,Total 0.6 mg/dL (0.2-1.3); Blood Urea Nitrogen 7 mg/dL (7-17); Calcium 8.9 mg/dL (8.4-10.2); Carbon Dioxide 26 mmol/L (22-30); Chloride 98 mmol/L (98-107); Estimated CRCL calculation 68 ml/min; Estimated Glomerular Filt Rate > 60; Glucose 157 mg/dL (65-105); Magnesium 1.3 mg/dL (1.6-2.3); Phosphorus 2.4 mg/dL (2.5-4.5); Potassium 3.2 mmol/L (3.4-5.0); Sodium 139 mmol/L (137-145)
[2019-08-18] MEDS: METOCLOPRAMIDE HCL INJ 10 MG/2 ML VIAL 5 MG IV PUSH ×4 (06:15→20:09)
[2019-08-18] MEDS: SUCRALFATE SUSP 100 MG/ML 10 ML UDC 1000 MG PO ×4 (06:16→20:09)
[2019-08-18] MEDS: MAGNESIUM SULF 2 GM/WATER 50ML 2 GM/50 ML BAG IVPB (08:10)
[2019-08-18 09:04] LABS: Glucose Point of Care 179 (65-105)
--- NOTE | 2019-08-18 09:06 | WPDANESPN ---
Anes - Prog Note Post-Op Date/Time: 08/18/19 09:06 Cardiovascular status: normal Respiratory status: normal Airway patency: baseline Mental status: baseline Post-Op hydration status: normal Vital Signs: Last Vital Signs Temp 36.5 C 08/18/19 06:00 Pulse 93 08/18/19 06:00 Resp 18 08/18/19 06:00 BP 150/75 H 08/18/19 06:00 Pulse Ox 100 08/18/19 06:00 I/O: Intake & Output 08/17/19 08/18/19 08/18/19 23:59 07:59 15:59 Intake Total 1620 50 Output Total 1650 900 Balance -30 -850 Laboratory Tests 08/18/19 05:09 08/18/19 05:09 08/17/19 08/17/19 08/17/19 09:20 11:40 17:44 WBC RBC Hgb Hct MCV MCH MCHC RDW Plt Count MPV Sodium Potassium Chloride Carbon Dioxide BUN Creatinine Estim Creat Clear Calc Estimated GFR Glucose POC Capillary Glucose 177 H 204 H 130 H Calcium Phosphorus Magnesium Total Bilirubin AST ALT Alkaline Phosphatase Total Protein Albumin 08/17/19 08/18/19 08/18/19 21:18 05:09 05:09 WBC 3.4 L RBC 3.85 L Hgb 10.4 L Hct 32.3 L MCV 83.9 MCH 27.0 MCHC 32.2 RDW 14.8 H Plt Count 288 MPV 10.5 H Sodium 139 Potassium 3.2 L Chloride 98 Carbon Dioxide 26 BUN 7 Creatinine 0.70 Estim Creat Clear Calc 68 Estimated GFR > 60 Glucose 157 H POC Capillary Glucose 143 H Calcium 8.9 Phosphorus 2.4 L Magnesium 1.3 L Total Bilirubin 0.6 AST 31 ALT 29 Alkaline Phosphatase 81 Total Protein 7.0 Albumin 3.8 08/18/19 08:08 WBC RBC Hgb Hct MCV MCH MCHC RDW Plt Count MPV Sodium Potassium Chloride Carbon Dioxide BUN Creatinine Estim Creat Clear Calc Estimated GFR Glucose POC Capillary Glucose 179 H Calcium Phosphorus Magnesium Total Bilirubin AST ALT Alkaline Phosphatase Total Protein Albumin Microbiology 08/15/19 21:52 Nasopharynx MRSA Culture - Final Post-procedural complaints: none Patient Feedback: Patient satisfied with anesthetic care.
[2019-08-18] MEDS: PANTOPRAZOLE 40 MG TABLET PO ×2 (09:09→20:10)
[2019-08-18] MEDS: POTASSIUM CHLORIDE 20 MEQ TABLET 40 MEQ PO (09:09)
[2019-08-18] MEDS: AMLODIPINE BESYLATE 2.5 MG TABLET PO (09:09)
[2019-08-18] MEDS: THERAPEUTIC MULTIVITAMINS/MINERALS TAB (*BKC) 1 TABLET PO (09:09)
[2019-08-18] MEDS: ROSUVASTATIN 10 MG TABLET PO (09:09)
[2019-08-18] MEDS: POTASSIUM/PHOSPHORUS/SODIUM 1.5 GM PACKET 1 PACKET PO (09:10)
--- NOTE | 2019-08-18 09:21 | WPDGIPROGNO ---
Progress Note: A&P Assessment and Plan (1) Nausea and vomiting: Qualifiers: Vomiting type: unspecified Vomiting Intractability: non-intractable Qualified Code(s): R11.2 - Nausea with vomiting, unspecified Code(s): R11.2 - Nausea with vomiting, unspecified Status: Chronic Assessment and Plan: supportive care, antiemetics gastritis is being treated now, better today she may have also gastroparesis, will get gastric emptying study as outpatient (2) Gastritis: Qualifiers: Gastritis type: unspecified gastritis Chronicity: unspecified Gastritis bleeding: presence of bleeding unspecified Qualified Code(s): K29.70 - Gastritis, unspecified, without bleeding Code(s): K29.70 - Gastritis, unspecified, without bleeding Status: Acute Assessment and Plan: can explain partially symptoms, she could have also dysmotility- she is also on reglan and carafate, continue with ppi (3) Barretts esophagus: Qualifiers: Mae's esophagus type: without dysplasia Qualified Code(s): K22.70 - Mae's esophagus without dysplasia Code(s): K22.70 - Mae's esophagus without dysplasia Status: Acute Assessment and Plan: long segment, pending biopsies- new diagnosis most likely will need to repeat another egd for dysplasia screening in 1 year (4) Diabetes: Qualifiers: Diabetes mellitus type: type 2 Diabetes mellitus penitentiary insulin use: without intermission coordinator use Diabetes mellitus complication status: without complication Qualified Code(s): E11.9 - Type 2 diabetes mellitus without complications Code(s): E11.9 - Type 2 diabetes mellitus without complications Status: Chronic (5) Acute kidney injury: Code(s): N17.9 - Acute kidney failure, unspecified Status: Acute Assessment and Plan: resolved, back to her baseline. Subjective Date/time seen: 08/18/19 09:21 Interval history: today she is feeling better, still nauseous but was able to eat scramble eggs for breakfast Review of Systems Review of Systems: All systems reviewed & are unremarkable except as noted in HPI and below Exam Const: General: comfortable and no acute distress HENMT: General nose exam: Normal nares present Eyes: General: appearance normal, both eyes and all related structures Neck: Neck: no JVD Resp: Auscultation: clear to auscultation bilaterally Cardio: Rate: regular rate Rhythm: regular rhythm GI: Inspection: non-distended GI Palp: Yes Soft to palpation Skin: General skin exam: normal color Neuro: General: gait normal Speech: normal speech Extrem: General: normal to inspection Psych: Mental Status: mental status grossly normal Objective Data Vital Signs Vital Signs: Vital Signs - 24 hr 08/17/19 14:00 08/17/19 22:00 08/18/19 06:00 Temperature 98.9 F 97.9 F 97.7 F Pulse Rate 91 107 H 93 Respiratory Rate 16 20 18 Blood Pressure 140/76 151/80 H 150/75 H Pulse Oximetry 100 99 100 Intake/Output Intake/Output: Intake & Output 08/15/19 08/16/19 08/17/19 08/18/19 23:59 23:59 23:59 23:59 Intake Total 1000 3100 4760 50 Output Total 1875 3250 900 Balance 1000 1225 1510 -850 Meds/Results Medications: Active Medications Generic Name Dose Route Start Last Admin Trade Name Freq PRN Reason Stop Dose Admin Acetaminophen 650 mg 08/15/19 18:10 Tylenol Tablet PO Q4H PRN Mild Pain (1-3) or Fever Amlodipine Besylate 2.5 mg 08/16/19 09:00 08/18/19 09:09 Norvasc PO 2.5 mg DAILY OJSÉ MANUEL Administration Dextrose 12.5 gm 08/16/19 04:26 Dextrose 50% Syringe IV PUSH PRN PRN Hypoglycemia Protocol Glucagon 1 mg 08/16/19 04:26 Glucagon For Inj IM PRN PRN Hypoglycemia Protocol Glucose 15 gm 08/16/19 04:26 Glutose 15 PO PRN PRN Hypoglycemia Protocol Dextrose 1,000 mls @ 100 mls/hr 08/16/19 04:26 Dextrose 5% 1,000 Ml IVPB
[2019-08-18] MEDS: ACETAMINOPHEN 325 MG TABLET 650 MG PO ×2 (11:30→20:46)
[2019-08-18 11:41] LABS: Glucose Point of Care 169 (65-105)
--- NOTE | 2019-08-18 13:42 | PM.IMPN ---
Progress Note: A&P Assessment and Plan (1) Acute kidney injury: Code(s): N17.9 - Acute kidney failure, unspecified Status: Acute Assessment and Plan: May be drug induced after starting Ozempic versus volume depletion from nausea and vomiting. Patient also has been taking Advil daily which could be impacting the renal function. Creatinine was 2.2 on admission and has dropped to 0.7 today. UA is clear. Continue to monitor. (2) Barretts esophagus: Qualifiers: Mae's esophagus type: without dysplasia Qualified Code(s): K22.70 - Mae's esophagus without dysplasia Code(s): K22.70 - Mae's esophagus without dysplasia Status: Acute Assessment and Plan: EGD showing evidence of Mae's esophagus. Patient on Nexium chronically at home. Biopsies taken. Follow up on results. Appreciate GI input. Continue acid suppression. (3) Gastritis: Qualifiers: Chronicity: unspecified Gastritis bleeding: presence of bleeding unspecified Gastritis type: unspecified gastritis Qualified Code(s): K29.70 - Gastritis, unspecified, without bleeding Code(s): K29.70 - Gastritis, unspecified, without bleeding Status: Acute Assessment and Plan: EGD showing gastritis. Currently on Protonix b.i.d. and Carafate. Follow up on biopsy results. (4) Hypomagnesemia: Code(s): E83.42 - Hypomagnesemia Status: Acute Assessment and Plan: Hypomagnesemia with hypokalemia. Magnesium level 1.3 today and this was replaced. Will continue monitor magnesium level and replace as needed. Potassium 3.2 this morning and this was also replaced. Continue to monitor. (5) Nausea and vomiting: Qualifiers: Vomiting Intractability: non-intractable Vomiting type: unspecified Qualified Code(s): R11.2 - Nausea with vomiting, unspecified Code(s): R11.2 - Nausea with vomiting, unspecified Status: Chronic Assessment and Plan: May be secondary to undiagnosed gastroparesis or from the Ozempic or from the gastritis and Mae's esophagus. Symptoms improving. May be related to the gastritis that may need some time to heal. Continue supplements. Continue to hold Ozempic indefinitely. Also continue the Carafate, Protonix and Reglan. Appreciate GI input. (6) Diabetes: Qualifiers: Diabetes mellitus complication status: without complication Diabetes mellitus truck terminal manager insulin use: without truck terminal manager use Diabetes mellitus type: type 2 Qualified Code(s): E11.9 - Type 2 diabetes mellitus without complications Code(s): E11.9 - Type 2 diabetes mellitus without complications Status: Chronic Assessment and Plan: A1c 8.2 in June. Metformin and Ozempic on hold. Glucose reasonable and all <180. Continue accuchecks with SSI Coverage. Hypoglycemic protocol. (7) Hypercholesterolemia: Code(s): E78.00 - Pure hypercholesterolemia, unspecified Status: Chronic Assessment and Plan: LFTs within normal limits. continue Crestor. (8) Peripheral neuropathy: Qualifiers: Peripheral neuropathy type: polyneuropathy, unspecified Qualified Code(s): G62.9 - Polyneuropathy, unspecified Code(s): G62.9 - Polyneuropathy, unspecified Status: Chronic Assessment and Plan: Stable. Continue gabapentin. (9) GERD (gastroesophageal reflux disease): Qualifiers: Esophagitis presence: esophagitis presence not specified Qualified Code(s): K21.9 - Gastro-esophageal reflux disease without esophagitis Code(s): K21.9 - Gastro-esophageal reflux disease without esophagitis Status: Acute Assessment and Plan: As above. Continue proton pump inhibitor. (10) HTN (hypertension), benign: Code(s): I10 - Essential (primary) hypertension Status: Acute Assessment and Plan: Blood pressure reviewed on 08/18/2019. Blood pre
[2019-08-18 14:00] VITALS: BP 135/87; PULSE 93; RESP 16; TEMP 36; O2SAT 99
[2019-08-18] MEDS: FLUTICASONE PROPIONATE 0.05% NA SPR 16 GM BTL (*BKC) 2 SPRAY NASAL (14:56)
[2019-08-18 17:00] LABS: Glucose Point of Care 136 (65-105)
[2019-08-18 20:43] LABS: Glucose Point of Care 180 (65-105)
[2019-08-18 22:00] VITALS: BP 164/83; PULSE 102; RESP 22; TEMP 36.3; O2SAT 100
[2019-08-19] MEDS: METOCLOPRAMIDE HCL INJ 10 MG/2 ML VIAL 5 MG IV PUSH ×2 (05:49→11:10)
[2019-08-19] MEDS: SUCRALFATE SUSP 100 MG/ML 10 ML UDC 1000 MG PO ×2 (05:49→11:10)
[2019-08-19 05:56] LABS: Blood Urea Nitrogen 8 mg/dL (7-17); Calcium 8.9 mg/dL (8.4-10.2); Carbon Dioxide 24 mmol/L (22-30); Chloride 99 mmol/L (98-107); Estimated CRCL calculation 78 ml/min; Estimated Glomerular Filt Rate > 60; Glucose 169 mg/dL (65-105); Magnesium 1.4 mg/dL (1.6-2.3); Phosphorus 2.3 mg/dL (2.5-4.5); Potassium 3.6 mmol/L (3.4-5.0); Sodium 137 mmol/L (137-145)
[2019-08-19 06:00] VITALS: BP 156/86; PULSE 101; RESP 18; TEMP 36.3; O2SAT 100
[2019-08-19] MEDS: FLUTICASONE PROPIONATE 0.05% NA SPR 16 GM BTL (*BKC) 2 SPRAY NASAL (08:19)
[2019-08-19] MEDS: AMLODIPINE BESYLATE 2.5 MG TABLET PO (08:19)
[2019-08-19] MEDS: ROSUVASTATIN 10 MG TABLET PO (08:19)
[2019-08-19] MEDS: THERAPEUTIC MULTIVITAMINS/MINERALS TAB (*BKC) 1 TABLET PO (08:19)
[2019-08-19] MEDS: PANTOPRAZOLE 40 MG TABLET PO (08:19)
[2019-08-19 08:26] LABS: Glucose Point of Care 178 (65-105)
[2019-08-19 11:20] LABS: Glucose Point of Care 251 (65-105)
[2019-08-19] MEDS: INSULIN ASPART (*BKC) 100 UNITS/ML SUB-Q (11:26)
--- NOTE | 2019-08-19 12:03 | WPDGIPROGNO ---
Progress Note: A&P Assessment and Plan (1) Nausea and vomiting: Qualifiers: Vomiting type: unspecified Vomiting Intractability: non-intractable Qualified Code(s): R11.2 - Nausea with vomiting, unspecified Code(s): R11.2 - Nausea with vomiting, unspecified Status: Chronic Assessment and Plan: supportive care, antiemetics feeling better and eating more. she may have also gastroparesis, will get gastric emptying study as outpatient (2) Gastritis: Qualifiers: Gastritis type: unspecified gastritis Chronicity: unspecified Gastritis bleeding: presence of bleeding unspecified Qualified Code(s): K29.70 - Gastritis, unspecified, without bleeding Code(s): K29.70 - Gastritis, unspecified, without bleeding Status: Acute Assessment and Plan: can explain partially symptoms, she could have also dysmotility- she is also on reglan and carafate, continue with ppi (3) Barretts esophagus: Qualifiers: Mae's esophagus type: without dysplasia Qualified Code(s): K22.70 - Mae's esophagus without dysplasia Code(s): K22.70 - Mae's esophagus without dysplasia Status: Acute Assessment and Plan: long segment, pending biopsies- new diagnosis most likely will need to repeat another egd for dysplasia screening in 1 year (4) Diabetes: Qualifiers: Diabetes mellitus type: type 2 Diabetes mellitus [facility] insulin use: without termite control technician use Diabetes mellitus complication status: without complication Qualified Code(s): E11.9 - Type 2 diabetes mellitus without complications Code(s): E11.9 - Type 2 diabetes mellitus without complications Status: Chronic (5) Acute kidney injury: Code(s): N17.9 - Acute kidney failure, unspecified Status: Acute Assessment and Plan: resolved, back to her baseline. Subjective Date/time seen: 08/19/19 12:03 Interval history: less nauseous today, overall better. She says that carafate is helping. Review of Systems Review of Systems: All systems reviewed & are unremarkable except as noted in HPI and below Exam Const: General: comfortable and no acute distress HENMT: General nose exam: Normal nares present Eyes: General: appearance normal, both eyes and all related structures Neck: Neck: no JVD Resp: Auscultation: clear to auscultation bilaterally Cardio: Rate: regular rate Rhythm: regular rhythm GI: Inspection: non-distended GI Palp: Yes Soft to palpation Skin: General skin exam: normal color Neuro: General: gait normal Speech: normal speech Extrem: General: normal to inspection Psych: Mental Status: mental status grossly normal Objective Data Vital Signs Vital Signs: Vital Signs - 24 hr 08/18/19 14:00 08/18/19 22:00 08/19/19 06:00 Temperature 96.8 F L 97.3 F L 97.3 F L Pulse Rate 93 102 H 101 H Respiratory Rate 16 22 H 18 Blood Pressure 135/87 164/83 H 156/86 H Pulse Oximetry 99 100 100 Intake/Output Intake/Output: Intake & Output 08/16/19 08/17/19 08/18/19 08/19/19 23:59 23:59 23:59 23:59 Intake Total 3100 4760 1200 420 Output Total 1875 3250 1500 650 Balance 1225 1510 300 230 Meds/Results Medications: Active Medications Generic Name Dose Route Start Last Admin Trade Name Freq PRN Reason Stop Dose Admin Acetaminophen 650 mg 08/15/19 18:10 08/18/19 20:46 Tylenol Tablet PO 650 mg Q4H PRN Administration Mild Pain (1-3) or Fever Amlodipine Besylate 2.5 mg 08/16/19 09:00 08/19/19 08:19 Norvasc PO 2.5 mg DAILY JOSÉ MANUEL Administration Dextrose 12.5 gm 08/16/19 04:26 Dextrose 50% Syringe IV PUSH PRN PRN Hypoglycemia Protocol Fluticasone Propionate 2 spray 08/18/19 13:55 08/19/19 08:19 Flonase 0.05% Nasal [place] NASAL 2 spray QAM JOSÉ MANUEL Administration Glucagon 1 mg 08/16/19 04:26 Glucagon For Inj IM PRN PRN Hypoglycemia Protocol Glucose 15 gm 02
[2019-08-19] MEDS: POTASSIUM/PHOSPHORUS/SODIUM 1.5 GM PACKET 1 PACKET PO (12:43)
[2019-08-19] MEDS: MAGNESIUM SULFATE 3GM/D5W100ML 3 GM/100 ML BAG IVPB (12:43)
[2019-08-19 14:00] VITALS: BP 140/79; PULSE 93; RESP 16; TEMP 35.8; O2SAT 100
--- NOTE | 2019-08-19 14:14 | PM.DS ---
DS: Diagnosis Admitting Diagnosis Admitting Diagnosis: Acute kidney failure, unspecified Discharge Diagnosis (1) Acute kidney injury: Code(s): N17.9 - Acute kidney failure, unspecified Status: Acute Assessment and Plan: May be drug induced after starting Ozempic versus volume depletion from nausea and vomiting. Patient also has been taking Advil daily which could be impacting the renal function. Creatinine was 2.2 on admission and has dropped to 0.8 with IV fluids. UA is clear. Off IV fluids, Cr continued to improve to 0.6. (2) Barretts esophagus: Qualifiers: Mae's esophagus type: without dysplasia Qualified Code(s): K22.70 - Mae's esophagus without dysplasia Code(s): K22.70 - Mae's esophagus without dysplasia Status: Acute Assessment and Plan: EGD showing evidence of Mae's esophagus. Patient on Nexium chronically at home. Biopsies taken. Follow up on results. Appreciate GI input. Continue acid suppression. (3) Gastritis: Qualifiers: Gastritis type: unspecified gastritis Chronicity: unspecified Gastritis bleeding: presence of bleeding unspecified Qualified Code(s): K29.70 - Gastritis, unspecified, without bleeding Code(s): K29.70 - Gastritis, unspecified, without bleeding Status: Acute Assessment and Plan: EGD on 08/16/19 showing gastritis. Was on Nexium 20mg daily on admission. Patient changed to Protonix b.i.d. and Carafate added. Biopsy taken with results pending. No more Advil (4) Hypomagnesemia: Code(s): E83.42 - Hypomagnesemia Status: Acute Assessment and Plan: Hypomagnesemia with hypokalemia and hypophsphatemia. Electrolytes monitored closely and relaced. May have had refeeding syndrome. (5) Nausea and vomiting: Qualifiers: Vomiting type: unspecified Vomiting Intractability: non-intractable Qualified Code(s): R11.2 - Nausea with vomiting, unspecified Code(s): R11.2 - Nausea with vomiting, unspecified Status: Chronic Assessment and Plan: May be secondary to undiagnosed gastroparesis or from the Ozempic or from the gastritis and Mae's esophagus. Symptoms improving with the above treatment. She was given supplements. We held Ozempic and recommended holding this indefinitely. Also continued on Carafate, Protonix and Reglan. Discussed with GI. (6) Diabetes: Qualifiers: Diabetes mellitus type: type 2 Diabetes mellitus rodent exterminator insulin use: without rodent exterminator use Diabetes mellitus complication status: without complication Qualified Code(s): E11.9 - Type 2 diabetes mellitus without complications Code(s): E11.9 - Type 2 diabetes mellitus without complications Status: Chronic Assessment and Plan: A1c 8.2 in June. Metformin and Ozempic on hold. Glucose reasonable and all <180 except last glucose 250. Continue accuchecks with SSI Coverage. Hypoglycemic protocol. Continue Humalog at meals. She will call her medical sales representative after discharge. (7) Hypercholesterolemia: Code(s): E78.00 - Pure hypercholesterolemia, unspecified Status: Chronic Assessment and Plan: LFTs within normal limits. We continued her Crestor. (8) Peripheral neuropathy: Qualifiers: Peripheral neuropathy type: polyneuropathy, unspecified Qualified Code(s): G62.9 - Polyneuropathy, unspecified Code(s): G62.9 - Polyneuropathy, unspecified Status: Chronic Assessment and Plan: Stable. We continued her gabapentin. (9) GERD (gastroesophageal reflux disease): Qualifiers: Esophagitis presence: esophagitis presence not specified Qualified Code(s): K21.9 - Gastro-esophageal reflux disease without esophagitis Code(s): K21.9 - Gastro-esophageal reflux disease without esophagitis Status: Acute Assessment and Plan: As above. We continued pro
--- NOTE | 2019-08-30 07:43 | PC.NURSE ---
Bx-s chronic gatritis and Mae's esophagus with nonspecific mild chronic esophagitis. No evidence of dysplasia, ulcer or neoplasm. Dr. Rivera aware. Results faxed to Kathy Garvin APRN.
== END 2019-08-19 15:23 | disposition home or self-care (01) | DRG 684 ==
LOC: ANHED 17:47 → ANH2MED 18:28
PROVIDERS: Family Medicine; Internal Medicine Gastroenterology; Admitting Provider Internal Medicine; Emergency Provider Emergency Medicine; PCP Nurse Practitioner; Visit Provider Internal Medicine
PROC: 0DJ08ZZ Inspection of Upper Intestinal Tract, Via Natural or Artificial Opening Endoscopic (ICD-10-PCS; CPT 43235; principal; 2019-08-16 15:00)
DX: N17.9 Acute kidney failure, unspecified (principal); E83.42 Hypomagnesemia; F32.9 Major depressive disorder, single episode, unspecified; K44.9 Diaphragmatic hernia without obstruction or gangrene; E78.00 Pure hypercholesterolemia, unspecified; I34.1 Nonrheumatic mitral (valve) prolapse; E11.42 Type 2 diabetes mellitus with diabetic polyneuropathy; Z87.440 Personal history of urinary (tract) infections; Z87.891 Personal history of nicotine dependence; K22.70 Barrett's esophagus without dysplasia; K29.70 Gastritis, unspecified, without bleeding; K31.7 Polyp of stomach and duodenum; K21.9 Gastro-esophageal reflux disease without esophagitis; E11.43 Type 2 diabetes mellitus with diabetic autonomic (poly)neuropathy; K31.84 Gastroparesis; T50.995A Adverse effect of other drugs, medicaments and biological substances, initial encounter
CPT/HCPCS: 36415; 76775; 80048; 80053; 80069; 81001; 83735; 84100; 85025; 85027; 87081; 88305; 96361; 96374; 96375; 99285; A9270; G0378; J1815; J2405; J2550; J2704; J2765; J3475; J7030; J7120

== ENCOUNTER 2019-08-23 12:09 | Outpatient (CLI) | payer MEDICARE, SELFPAY ==
[2019-08-23 12:50] LABS: Albumin Level 4.3 g/dL (3.5-5.1); Blood Urea Nitrogen 11 mg/dL (7-17); Calcium 9.9 mg/dL (8.4-10.2); Carbon Dioxide 28 mmol/L (22-30); Chloride 95 mmol/L (98-107); Estimated Glomerular Filt Rate > 60; Glucose 355 mg/dL (65-105); Magnesium 1.3 mg/dL (1.6-2.3); Phosphorus 2.9 mg/dL (2.5-4.5); Potassium 3.5 mmol/L (3.4-5.0); Sodium 137 mmol/L (137-145)
== END 2019-08-23 12:10 | disposition home or self-care (01) ==
LOC: ANHLAB 12:10
PROVIDERS: PCP Nurse Practitioner; Visit Provider Internal Medicine
DX: N17.9 Acute kidney failure, unspecified (principal); E83.42 Hypomagnesemia
CPT/HCPCS: 36415; 80069; 83735

== ENCOUNTER 2019-09-18 13:51 | Inpatient (IN) | payer MEDICARE, SELFPAY ==
[2019-09-18] VITALS (8 sets, daily range): BP systolic 99–129; BP diastolic 63–82; PULSE 92–124; RESP 12–18; TEMP 36.3–36.9; O2SAT 98–100; BMI 25.4
--- NOTE | ~2019-09-18 | CT_ITS ---
EXAMINATION: CT abdomen pelvis wo con DATE: 09/18/2019 15:10 INDICATION: Abdominal pain and nausea TECHNIQUE: Computed tomography (CT) of the chest was performed without intravenous contrast. The dose -length product (DLP) was 483.86 mGy-cm. Automated exposure control and iterative reconstruction tech nique were employed. COMPARISON: 08/15/2019 FINDINGS: There are subpleural reticular and groundglass opacities in the visualized lung bases. Ther e is a moderate-sized sliding hiatal hernia with fluid in the visualized portions of the esophagus. T he heart size is normal. There is focal fatty saturation the liver adjacent to the ligamentum teres s tones or sludge layer in the nondistended gallbladder. The pancreas and adrenal glands are normal. Pu nctate calcifications in an otherwise normal spleen likely represent healed granulomatous disease. Th ere is calcified atherosclerosis of the aorta and many of the other arteries. No pathologically enlar ged abdominal or pelvic lymph nodes are identified. There is no free intraperitoneal gas or evidence of bowel obstruction. There is mild lumbar spondylosis. There is a tiny fat-containing umbilical silvia ia. IMPRESSION: 1. No CT correlate for the patient's symptoms. 2. Moderate-sized sliding hiatal hernia with chronic fluid in the visualized distal esophagus. Reviewed, dictated and finalized at location B. IMPRESSION: 1. No CT correlate for the patient's symptoms. 2. Moderate-sized sliding hiatal hernia with chronic fluid in the visualized di stal esophagus.
--- NOTE | 2019-09-18 13:57 | ED.NAVMDI ---
HPI - Nausea/Vomiting/Diarrhea General Chief complaint: Nausea/Vomiting/Diarrhea Stated complaint: n/v Time Seen by Provider: 09/18/19 13:53 Source: patient Mode of arrival: ambulatory Limitations: no limitations History of Present Illness HPI Narrative: A 63 y/o female presents to the ED with c/o N/V. Pt states that the N/V started on 09/14/19 and has been constant since. She notes that she was at [facility] 1 month ago with similar symptoms and was dehydrated. Pt took Pepto-Bismol for the N/V with no relief. She denies diarrhea, ABD pain, fever, cough,and rhinorrhea. Pt has no other complaints at this time. MD elicited complaint: nausea and vomiting Onset (ago): day(s) (4) Associated abdominal pain: No Location of pain: none Relieving factors: none Associated symptoms: denies other symptoms Related Data Home Medications Medication Instructions Recorded Confirmed amlodipine 2.5 mg tablet 2.5 mg PO DAILY 07/05/19 08/15/19 multivitamin,[id number]-[id number] 1 tablet PO DAILY 07/05/19 08/15/19 rosuvastatin 20 mg tablet 10 mg PO DAILY tablet 07/05/19 08/15/19 valsartan 160 1 tablet PO DAILY 07/05/19 08/15/19 mg-hydrochlorothiazide 25 mg tablet Allergies Allergy/AdvReac Type Severity Reaction Status Date / Time semaglutide [From Ozempic] AdvReac Intermediate Other Verified 09/18/19 14:09 Review of Systems Review of Systems: All systems reviewed & are unremarkable except as noted in HPI and below Constitutional: Constitutional: Denies fever(s) ENT: Denies nasal discharge Respiratory: Respiratory: Denies cough Gastrointestinal: Gastrointestinal: Denies abdominal pain, Denies diarrhea, Reports nausea and Reports vomiting PMFSH Past Medical History Medical History Barretts esophagus Depression Diabetes Gastritis GERD (gastroesophageal reflux disease) Hiatal hernia HTN (hypertension), benign Hypercholesterolemia Mitral valve prolapse Peripheral neuropathy Pneumonia UTI (urinary tract infection) Surgical History Surgical History History of arthroscopy of both knees History of foot surgery Family History Family History Grandparent Family history of cardiovascular disease Diabetes mellitus Mother Hypertension Chronic obstructive pulmonary disease Other Depression Family history of blood dyscrasia Family history of cataracts Family history of glaucoma Family history of hearing loss Family history of kidney disease Family history of malignant neoplasm Family history of mental disorder Family history of obesity Social History Social History Smoking status: Former smoker Smoking end date: 06/27/82 Alcohol intake: never Substance use: never Substance use type: does not use Gender identity (if verbalized by the patient): Female Spiritual care concerns: No Agree to blood products: Yes Exam Narrative: Exam Narrative: APPEARANCE: No acute distress, nontoxic, resting in bed EYES: EOMI HEENT: Normocephalic, atraumatic, oromucosa dry, no erythema or exudate posterior pharynx RESPIRATORY: No respiratory distress Clear to auscultation bilaterally with no rhonchi wheezing or rales. CARDIOVASCULAR: Tachycardic and regular without murmurs rubs or gallops. ABDOMINAL: Soft, nontender, nondistended, no rebound or guarding MUSCULOSKELETAl: Moves all extremities. No clubbing, cyanosis or edema. NEURO: Awake and alert. Following commands, speech normal, no focal deficits SKIN:: Warm, dry. No rashes lesions or abrasions PSYCHIATRIC: Normal affect/mood, Course Course Emergency Course: Reviewed old records Discussed with patient and family results of workup and diagnosis. Discussed need for admission. Patient and family understand and agree to current treatment plan Consultations Consultation #1: Dis
[2019-09-18] MEDS: SODIUM CHLORIDE 0.9% IV 1,000 ML 999 ML IV CONT ×2 (14:22→14:56)
[2019-09-18] MEDS: ONDANSETRON INJ 4 MG/2 ML VIAL IV PUSH (14:22)
[2019-09-18 14:32] LABS: Basophils Percent Auto 0.2 % (0.2-1.2); Eosinophils Percent Auto 0.1 % (0-4.4); Hematocrit 42.5 % (37.0-47.0); Hemoglobin 13.7 g/dL (12.0-15.0); Immature Granulocyte Absolute 0.04 K/mm3 (0.00-0.031); Immature Granulocyte Percent A 0.5 % (0-0.5); Lymphocytes Absolute Auto 1.16 K/mm3 (0.9-3.2); Lymphocytes Percent Auto 14.4 % (18.3-44.2); Mean Corpuscular HGB Conc 32.2 g/dl (32-36); Mean Corpuscular Hemoglobin 27.5 pg (26-34); Mean Corpuscular Volume 85.2 fl (80-100); Mean Platelet Volume 11.4 fl (7.4-10.4); Monocytes Absolute Auto 0.4 K/mm3 (0.1-0.6); Monocytes Percent Auto 4.9 % (2.6-8.5); Neutrophils Absolute Auto 6.4 K/mm3 (1.3-6.7); Neutrophils Percent Auto 79.9 % (45.5-73.1); Platelet Count Result 575 k/mm3 (150-375); Red Blood Count 4.99 M/mm3 (4.2-5.4); Red Cell Distribution Width 15.3 % (11.5-14.5)
[2019-09-18 14:41] LABS: Prothrombin Time 13.1 Seconds (11.1-14.7)
[2019-09-18 14:42] LABS: Partial Thromboplastin Time 27.7 SECONDS (22.3-36.8)
[2019-09-18 14:48] LABS: Alanine Aminotransferase 20 U/L (4-35); Albumin Level 5.6 g/dL (3.5-5.1); Alkaline Phosphatase 93 U/L (38-126); Aspartate Amino Transferase 24 U/L (14-36); Bilirubin,Total 0.6 mg/dL (0.2-1.3); Blood Urea Nitrogen 28 mg/dL (7-17); Calcium 13.2 mg/dL (8.4-10.2); Carbon Dioxide 9 mmol/L (22-30); Chloride 90 mmol/L (98-107); Estimated CRCL calculation 33 ml/min; Estimated Glomerular Filt Rate 38; Glucose 595 mg/dL (65-105); Lipase 155 U/L (23-300); Potassium 4.9 mmol/L (3.4-5.0); Sodium 136 mmol/L (137-145)
[2019-09-18 15:25] LABS: Alveolar/Arterial O2 Gradient 19.9 mmHg; Base Excess ABG -14.8 mEq/l (+/-2.0); Fractional Inspired Oxygen 21 %; Oxygen Content ABG 18.1 %vol (16.0-22.0); Oxygen Saturation ABG 97.2 % (95.0-100.0); PO2 ABG 103.2 mmHg (80.0-100.0); PO2 FiO2 Ratio Arterial Blood 4.91 %; Total Hemoglobin 13.3 g/dL (12.0-18.0)
[2019-09-18 15:27] LABS: Device ROOM AIR; PCO2 ABG 22.2 mmHg (35.0-45.0); Site Drawn RIGHT BRACHIAL; pH ABG 7.273 (7.350-7.450)
[2019-09-18 15:30] LABS: Magnesium 1.4 mg/dL (1.6-2.3); Phosphorus 7.6 mg/dL (2.5-4.5)
[2019-09-18 15:56] LABS: Add Urine Microscopic? YES; Appearance Urine Clear (Clear); Bacteria Urine Trace /hpf; Bilirubin Urine Negative (Negative); Blood Urine Negative (Negative); Color Urine Straw (Yellow); Glucose Urine UA 3+ mg/dL (Negative); Ketones Urine 2+ mg/dL (Negative); Leukocyte Esterase Ur Negative LEU/UL (Negative); Mucus Urine Rare /lpf; Nitrate Urine Negative (Negative); Protein Urine 1+ mg/dL (Negative); Renal Epithelial Cells Urine Rare /hpf (None Seen); Specific Grav Ur 1.018 (1.001-1.035); Squamous Epithelial Cell Urine Rare /hpf (Few); Urobilinogen Urine Negative mg/dL (<2.0); WBC Urine 0-3 /hpf
[2019-09-18] MEDS: INSULIN HUMAN REGULAR (*BKC) 100 UNITS in SODIUM CHLORIDE 0.9% IV 99 ML 10.7 UNITS IV CONT (16:08)
[2019-09-18] MEDS: MAGNESIUM SULF 2 GM/WATER 50ML 2 GM/50 ML BAG IVPB (16:10)
[2019-09-18 16:11] LABS: Glucose Point of Care 495 (65-105)
[2019-09-18] MEDS: KCL 20 MEQ/D5/0.45% SOD CHL 1,000 ML 150 ML IV CONT ×2 (17:30→23:28)
--- NOTE | 2019-09-18 17:48 | ADMIMU ---
This patient, Elke Pink, was admitted to IMU status, and placed in Intensive Care Unit-9. Patient/family oriented to hospital policies and general routines including ID bracelet, bed and alarms, visiting hours, pain management, procedures, bathroom and other care routines, personal items, smoking policy, room service/diet, and visiting hours. Valuables list has been completed. Information on how to activate the Rapid Response Team has been discussed. Patient/Family are encouraged to report perceived risks to care and to ask questions if they do not understand what they are told or what they should do.
[2019-09-18 18:17] LABS: Glucose Point of Care 352 (65-105)
[2019-09-18 19:23] LABS: Glucose Point of Care 333 (65-105)
[2019-09-18 19:38] LABS: Blood Urea Nitrogen 27 mg/dL (7-17); Calcium 11.5 mg/dL (8.4-10.2); Carbon Dioxide 17 mmol/L (22-30); Chloride 103 mmol/L (98-107); Estimated CRCL calculation 36 ml/min; Estimated Glomerular Filt Rate 50; Glucose 318 mg/dL (65-105); Potassium 3.9 mmol/L (3.4-5.0); Sodium 137 mmol/L (137-145)
[2019-09-18 20:29] LABS: Hemoglobin A1C 10.1 % (<5.7)
--- NOTE | 2019-09-18 20:30 | PM.IMHP ---
H&P: HPI History of Present Illness Chief complaint: Nausea and vomiting. Narrative: Elke Pink is a 63-year-old female with type 2 diabetes mellitus, hypertension, GERD, and Mae's esophagus who presented to the emergency department earlier today with complaints of nausea and vomiting. She was recently admitted to the hospitalist service on August 16, 2019 with acute kidney injury attributed to dehydration, although there was some concern that Ozempic may have been playing a role as she was recently started on that drug. Upper endoscopy done during that stay he did show gastritis and Mae esophagus which was confirmed on histology. Aside from ongoing issues with GERD symptoms, she had been doing fairly well up until Tuesday when she developed sudden onset nausea and vomiting. She has not been able to hold down food since that time, and this morning it was to the point where she was so lightheaded/dizzy and short of breath that her had to help her down the stairs. She has not checked her glucose since Tuesday ?because I have not had anything to eat in I did not think to check it.? In the emergency department she was found to meet criteria for diabetic ketoacidosis and is being admitted in this setting. She reports being cold but has not had fever or sweats. No cold or flu symptoms. She denies diarrhea. No dysuria. No hematemesis. Review of Systems Review of Systems: Narrative: Twelve systems were reviewed with pertinent positives and negatives as per HPI. No fever or sweats. Reports some chills. No sinus congestion, rhinorrhea, otalgia, or odynophagia. Denies headache and neck ache. No chest pain or pleuritic pain. She was mildly short of breath earlier today. No abdominal pain but she does have epigastric discomfort and pretty significant GERD symptoms. She states compliance with her Protonix and Carafate. No hematemesis, melena, or hematochezia. As above, she has not been checking her glucose at home the last several days. She does suffer from peripheral neuropathy. She denies retinopathy and no nephropathy. No blurry vision, polydipsia, or polyuria. Except as documented, all other systems were reviewed and are negative. [facility] Past Medical History Medical History (Updated 09/18/19 @ 23:07 by Ban Clark PA-C) Barretts esophagus Upper endoscopy 08/17/[address] Roe showed gastritis, with biopsy demonstrating Mae's esophagus. Chronic anemia Depression GERD (gastroesophageal reflux disease) Hiatal hernia Hypercholesterolemia Hypertension Mitral valve prolapse Type 2 diabetes mellitus with peripheral neuropathy Hemoglobin A1c was 10.1% on 09/18/2019. Surgical History Surgical History (Updated 09/18/19 @ 23:04 by Ban Clark PA-C) History of arthroscopy of both knees History of foot surgery ORIF left foot fracture. Family History Family History Grandparent Family history of cardiovascular disease Diabetes mellitus Mother Hypertension Chronic obstructive pulmonary disease Other Depression Family history of blood dyscrasia Family history of cataracts Family history of glaucoma Family history of hearing loss Family history of kidney disease Family history of malignant neoplasm Family history of mental disorder Family history of obesity Social History Social History (Updated 09/18/19 @ 23:05 by Ban Clark PA-C) Social History: The patient is and lives with her in [place]. She smoked remotely in the late 1970s to the early 80s. She denies alcohol and drug abuse. She designates her , Manjinder, as her surrogate decision maker and she wishes to be a full code. Spiritual care concerns: No Agree to blood products: No Meds Home Medications and Allergies Home Medications Medication Instructions Recorded Confirmed Type amlodipine 2.5 mg tablet 2.5 m
[2019-09-18 20:31] LABS: Glucose Point of Care 263 (65-105)
[2019-09-18 21:39] LABS: Glucose Point of Care 257 (65-105)
[2019-09-18 22:30] LABS: Glucose Point of Care 221 (65-105)
[2019-09-18 23:31] LABS: Glucose Point of Care 203 (65-105)
[2019-09-18 23:32] LABS: Blood Urea Nitrogen 29 mg/dL (7-17); Calcium 11.5 mg/dL (8.4-10.2); Carbon Dioxide 25 mmol/L (22-30); Chloride 105 mmol/L (98-107); Estimated CRCL calculation 43 ml/min; Estimated Glomerular Filt Rate > 60; Glucose 176 mg/dL (65-105); Potassium 3.6 mmol/L (3.4-5.0); Sodium 138 mmol/L (137-145)
[2019-09-19] VITALS (10 sets, daily range): BP systolic 108–128; BP diastolic 55–76; PULSE 80–99; RESP 16–20; TEMP 36.3–37.1; O2SAT 97–100; BMI 25.4
[2019-09-19 00:30] LABS: Glucose Point of Care 120 (65-105)
[2019-09-19] MEDS: ONDANSETRON INJ 4 MG/2 ML VIAL IV PUSH (00:55)
[2019-09-19] MEDS: INSULIN GLARGINE (*BKC) 100 UNITS/ML 25 UNITS SUB-Q (00:56)
[2019-09-19 02:02] LABS: Glucose Point of Care 169 (65-105)
[2019-09-19 04:35] LABS: Glucose Point of Care 241 (65-105)
[2019-09-19 05:08] LABS: Basophils Percent Auto 0.3 % (0.2-1.2); Eosinophils Percent Auto 0.6 % (0-4.4); Hematocrit 33.7 % (37.0-47.0); Immature Granulocyte Absolute 0.03 K/mm3 (0.00-0.031); Immature Granulocyte Percent A 0.4 % (0-0.5); Lymphocytes Absolute Auto 1.33 K/mm3 (0.9-3.2); Lymphocytes Percent Auto 18.6 % (18.3-44.2); Mean Corpuscular HGB Conc 32.6 g/dl (32-36); Mean Corpuscular Hemoglobin 27.8 pg (26-34); Mean Corpuscular Volume 85.1 fl (80-100); Mean Platelet Volume 10.9 fl (7.4-10.4); Monocytes Absolute Auto 0.7 K/mm3 (0.1-0.6); Monocytes Percent Auto 9.4 % (2.6-8.5); Neutrophils Absolute Auto 5.1 K/mm3 (1.3-6.7); Neutrophils Percent Auto 70.7 % (45.5-73.1); Platelet Count Result 357 k/mm3 (150-375); Red Blood Count 3.96 M/mm3 (4.2-5.4); Red Cell Distribution Width 15.3 % (11.5-14.5); White Blood Count 7.1 K/mm3 (4.5-10.0)
[2019-09-19 05:13] LABS: Alanine Aminotransferase 13 U/L (4-35); Alkaline Phosphatase 68 U/L (38-126); Aspartate Amino Transferase 14 U/L (14-36); Bilirubin,Total 0.4 mg/dL (0.2-1.3); Blood Urea Nitrogen 29 mg/dL (7-17); Calcium 10.4 mg/dL (8.4-10.2); Carbon Dioxide 16 mmol/L (22-30); Chloride 103 mmol/L (98-107); Estimated CRCL calculation 36 ml/min; Estimated Glomerular Filt Rate 50; Glucose 245 mg/dL (65-105); Magnesium 1.8 mg/dL (1.6-2.3); Phosphorus 2.8 mg/dL (2.5-4.5); Potassium 3.9 mmol/L (3.4-5.0); Sodium 136 mmol/L (137-145)
[2019-09-19] MEDS: LACTATED RINGERS 1,000 ML 125 ML IV CONT ×2 (06:14→16:31)
[2019-09-19 07:46] LABS: Glucose Point of Care 301 (65-105)
[2019-09-19] MEDS: INSULIN ASPART (*BKC) 100 UNITS/ML SUB-Q ×4 (07:56→16:30)
[2019-09-19 10:45] LABS: Blood Urea Nitrogen 29 mg/dL (7-17); Carbon Dioxide 18 mmol/L (22-30); Chloride 102 mmol/L (98-107); Estimated CRCL calculation 39 ml/min; Estimated Glomerular Filt Rate 56; Glucose 295 mg/dL (65-105); Potassium 3.9 mmol/L (3.4-5.0); Sodium 133 mmol/L (137-145)
--- NOTE | 2019-09-19 10:47 | PCDIET ---
Carbohydrate counting information and brief review provided. Patient declined in depth education. See Nutritional Teaching for additional details.
[2019-09-19] MEDS: INSULIN GLARGINE (*BKC) 100 UNITS/ML 10 UNITS SUB-Q (11:23)
[2019-09-19 11:30] LABS: Glucose Point of Care 295 (65-105)
--- NOTE | 2019-09-19 11:48 | WPDCNINT ---
Assessment and Plan Assessment and plan (1) Diabetic ketoacidosis: Code(s): E11.10 - Type 2 diabetes mellitus with ketoacidosis without coma Status: Acute Assessment and Plan: With hyperglycemia, positive ketones, metabolic acidosis . Anion gap was 37 on arrival to the emergency department but is down to 13 this am . IV insulin drip has been transitioned to lantus and SSI will continue IVF for now hold metformin (2) Acute kidney injury: Code(s): N17.9 - Acute kidney failure, unspecified Status: Acute Assessment and Plan: Secondary to dehydration from ongoing vomiting and poor oral intake. She is receiving aggressive IV fluid rehydration. Avoid nephrotoxic agents. hold metformin (3) Dehydration: Code(s): E86.0 - Dehydration Status: Acute Assessment and Plan: Plan is as detailed above. (4) Chronic anemia: Code(s): D64.9 - Anemia, unspecified Status: Acute Assessment and Plan: She is hemoconcentrated due to dehydration. I expect her hemoglobin and hematocrit to fall with hydration. Will continue to monitor daily. no indication for transfusion (5) Hypercalcemia: Code(s): E83.52 - Hypercalcemia Status: Acute Assessment and Plan: Secondary to dehydration with nausea. vomiting will cotninue IVF (6) Hypomagnesemia: Code(s): E83.42 - Hypomagnesemia Status: Resolved Assessment and Plan: Magnesium will be replaced and monitored. (7) Hypertension: Code(s): I10 - Essential (primary) hypertension Status: Acute Assessment and Plan: On norvasc, losartan and HCTZ per home med list Will hold off for now till BP has imporved (8) GERD (gastroesophageal reflux disease): Qualifiers: Esophagitis presence: esophagitis presence not specified Qualified Code(s): K21.9 - Gastro-esophageal reflux disease without esophagitis Code(s): K21.9 - Gastro-esophageal reflux disease without esophagitis Status: Acute Assessment and Plan: With gastritis and evidence of Mae's esophagus on recent upper endoscopy. will Continue Protonix and sucralfate. Metalizer Consult Note Consult date: 09/19/19 Time Seen: 12:23 HPI: Elke Pink is a 63 year old female with PMhx of DM who presented to ER with increased weakness , nausea and vomiting . Per patient she has not been able to keep any food down for last 2 days . Except ice cold water she has not been able to keep any fluids down either . She felt very weak and exhausted and hence was brought to ER by family. In ER initial set of labs showed AG of 25 with BG of 595, BUN of 28 , creat of 1.4, Bicarb of 9 and K of 4.9, WBC count was normal at 8.0. Patient was given 2 litres IVF bolus and started on IV insulin drip and is admitted to ICU for management of DKA. Overnight patient was given lantus and transitioned from IV insulin to SSI. Patient has also been able to take po without any nausea or vmiting . Her most recent labs show BG of 295, BUN of 29, creat of 1.0, bicarb of 18 and AG of 13. Of note patient was recently admitted with dehydration and GERD and has been diagnosed with Mae`s esophagus. Review of Systems Review of Systems: Narrative: Constitutional- awake , obese , in no distress Eyes/ears/nose- No visual complaints , normal hearing CVS- denies SOB , chest pain , palpitations Resp- denies, SOB , cough , hemoptysis , congestion, wheezing GI- denies diarrhea, abdominal pain, nausea/vomiting has resolved ,no constipation neuro- denies LOC, SZ, syncope, weakness has improved , neuropathy present due to DM musculoskeletal- denies joint pain , deformity Skin- no new rashes or skin breakdown psychatric- denies depression, hallucinations , anxiety , mood swings [facility] Past Medical History Medical History (Updated 09/19/19 @ 12:09 by Lashon Molina MD) [facility]
--- NOTE | 2019-09-19 12:51 | PC.NURSE ---
This patient, Elke Pink, was transferred to [facility] on 09/19/19 at 1240. Personal belongings sent with patient. Belongings list checked. Report given to Anne HWANG. Appropriate documentation sent with patient.
--- NOTE | 2019-09-19 13:05 | PM.IMPN ---
Progress Note: A&P Assessment and Plan (1) Diabetic ketoacidosis: Code(s): E11.10 - Type 2 diabetes mellitus with ketoacidosis without coma Status: Acute Assessment and Plan: With hyperglycemia, positive ketones, and metabolic acidosis. Anion gap was 37 on arrival to the emergency department. She has been started on insulin fusion per DKA protocol. Electrolytes and glucose will be monitored closely. 09/19/19 13:05 Patient is 63-year-old female with history of diabetes, on recent EGD patient is found to have gastritis and Mae esophagitis patient presented emergency department with a complaint of nausea and vomiting persisting for last 2 days was not able to take anything p.o. or hold it, patient became quite tired and fatigue had difficulty ambulating, to the emergency department for further evaluation and was found to have hyperglycemia with DKA patient was admitted to ICU and started on insulin drip and with vigorously dehydrated, her symptoms have improved patient is off the insulin drip and now on long-acting insulin, patient anion gap is also improved, her nausea and vomiting have also improved his able to take p.o. and hold it, she denies any abdominal pain nausea or vomiting fever or chills at the present time, most likely will transfer the patient out of ICU today (2) Acute kidney injury: Code(s): N17.9 - Acute kidney failure, unspecified Status: Acute Assessment and Plan: Secondary to dehydration from ongoing vomiting and poor oral intake. She is receiving aggressive IV fluid rehydration. Avoid nephrotoxic agents. Most likely secondary to DKA and dehydration her kidney function is improving with IV fluids (3) Dehydration: Code(s): E86.0 - Dehydration Status: Acute Assessment and Plan: Plan is as detailed above. (4) Chronic anemia: Code(s): D64.9 - Anemia, unspecified Status: Acute Assessment and Plan: She is hemoconcentrated due to dehydration. I expect her hemoglobin and hematocrit to fall with hydration. Will continue to monitor daily. (5) Hypercalcemia: Code(s): E83.52 - Hypercalcemia Status: Acute Assessment and Plan: Secondary to dehydration with current current thiazide diuretic use. Calcium noted to be within normal limits with last hospitalization, making other etiologies unlikely. (6) Hypomagnesemia: Code(s): E83.42 - Hypomagnesemia Status: Resolved Assessment and Plan: Magnesium will be replaced and monitored. (7) GERD (gastroesophageal reflux disease): Qualifiers: Esophagitis presence: esophagitis presence not specified Qualified Code(s): K21.9 - Gastro-esophageal reflux disease without esophagitis Code(s): K21.9 - Gastro-esophageal reflux disease without esophagitis Status: Acute Assessment and Plan: With gastritis and evidence of Mae's esophagus on recent upper endoscopy as per HPI. Continue Protonix and sucralfate. Subjective Date/time seen: 09/19/19 13:05 Patient is 63-year-old female with history of diabetes, on recent EGD patient is found to have gastritis and Mae esophagitis patient presented emergency department with a complaint of nausea and vomiting persisting for last 2 days was not able to take anything p.o. or hold it, patient became quite tired and fatigue had difficulty ambulating, to the emergency department for further evaluation and was found to have hyperglycemia with DKA patient was admitted to ICU and started on insulin drip and with vigorously dehydrated, her symptoms have improved patient is off the insulin drip and now on long-acting insulin, her nausea and vomiting have also improved his able to take p.o. and hold it, she denies any abdominal pain nausea or vomiting fever or chills at the present time, Review of Systems Review of Systems: All systems reviewed & are unremarkable excep
--- NOTE | 2019-09-19 15:01 | PC.NURSE ---
This patient, Elke Pink, was received from ICU[ ] on 09/19/19 at 1245. Personal belongings list checked and signed. Patient/family oriented to unit policies and routines
[2019-09-19] MEDS: GABAPENTIN 300 MG CAPSULE 600 MG PO (16:10)
[2019-09-19 16:46] LABS: Glucose Point of Care 277 (65-105)
[2019-09-19] MEDS: SUCRALFATE SUSP 100 MG/ML 10 ML UDC 1000 MG PO (20:29)
[2019-09-19] MEDS: PANTOPRAZOLE 40 MG TABLET PO (20:33)
[2019-09-19 21:04] LABS: Glucose Point of Care 286 (65-105)
[2019-09-20] MEDS: LACTATED RINGERS 1,000 ML 125 ML IV CONT ×3 (00:17→17:21)
[2019-09-20 05:48] VITALS: BP 132/73; PULSE 69; RESP 18; TEMP 36.6; O2SAT 100
[2019-09-20] MEDS: SUCRALFATE SUSP 100 MG/ML 10 ML UDC 1000 MG PO ×4 (06:52→20:45)
[2019-09-20] MEDS: FLUTICASONE PROPIONATE 0.05% NA SPR 16 GM BTL (*BKC) 2 SPRAY NASAL (08:23)
[2019-09-20] MEDS: GABAPENTIN 300 MG CAPSULE 600 MG PO ×3 (08:25→17:22)
[2019-09-20] MEDS: ROSUVASTATIN 10 MG TABLET PO (08:26)
[2019-09-20] MEDS: PANTOPRAZOLE 40 MG TABLET PO ×2 (08:26→20:45)
[2019-09-20] MEDS: THERAPEUTIC MULTIVITAMINS/MINERALS TAB (*BKC) 1 TABLET PO (08:26)
[2019-09-20] MEDS: INSULIN GLARGINE (*BKC) 100 UNITS/ML 40 UNITS SUB-Q (08:36)
[2019-09-20] MEDS: INSULIN ASPART (*BKC) 100 UNITS/ML SUB-Q ×4 (08:37→17:22)
[2019-09-20 10:22] LABS: Glucose Point of Care 236 (65-105)
[2019-09-20 11:41] LABS: Blood Urea Nitrogen 17 mg/dL (7-17); Calcium 9.4 mg/dL (8.4-10.2); Carbon Dioxide 22 mmol/L (22-30); Chloride 105 mmol/L (98-107); Estimated CRCL calculation 67 ml/min; Estimated Glomerular Filt Rate > 60; Glucose 172 mg/dL (65-105); Magnesium 1.5 mg/dL (1.6-2.3); Potassium 3.2 mmol/L (3.4-5.0); Sodium 133 mmol/L (137-145)
[2019-09-20 11:42] LABS: Glucose Point of Care 157 (65-105)
[2019-09-20] MEDS: MUPIROCIN 2% OINT 22 GM TUBE 1 APPLIC EACH NARE ×2 (12:18→20:45)
--- NOTE | 2019-09-20 13:00 | PM.IMPN ---
Progress Note: A&P Assessment and Plan (1) Diabetic ketoacidosis: Code(s): E11.10 - Type 2 diabetes mellitus with ketoacidosis without coma Status: Acute Assessment and Plan: With hyperglycemia, positive ketones, and metabolic acidosis. Anion gap was 37 on arrival to the emergency department. She has been started on insulin fusion per DKA protocol. Electrolytes and glucose will be monitored closely. 09/20/19 13:00 Patient is 63-year-old female with history of diabetes, on recent EGD patient is found to have gastritis and Mae esophagitis patient presented emergency department with a complaint of nausea and vomiting persisting for last 2 days was not able to take anything p.o. or hold it, patient became quite tired and fatigue had difficulty ambulating, to the emergency department for further evaluation and was found to have hyperglycemia with DKA patient was admitted to ICU and started on insulin drip and with vigorously dehydrated, her symptoms have improved patient is off the insulin drip and now on long-acting insulin, patient anion gap is also improved, her nausea and vomiting have also improved his able to take p.o. and hold it, patient was transferred out of ICU on 09/18 today patient is feeling better not as nauseated able to hold PO however see has not had a BM and 4 days which she attributes as she has not taken much food intake, patient was seen by telephone lineman her insulin is adjusted and her blood sugars are improving, will monitor patient of 1 more day, will have a PT OT evaluate the patient and may discharge the patient home tomorrow. (2) Acute kidney injury: Code(s): N17.9 - Acute kidney failure, unspecified Status: Acute Assessment and Plan: Secondary to dehydration from ongoing vomiting and poor oral intake. She is receiving aggressive IV fluid rehydration. Avoid nephrotoxic agents. Most likely secondary to DKA and dehydration her kidney function is improving with IV fluids, today her kidney function is back to baseline (3) Dehydration: Code(s): E86.0 - Dehydration Status: Acute Assessment and Plan: Plan is as detailed above. (4) Chronic anemia: Code(s): D64.9 - Anemia, unspecified Status: Acute Assessment and Plan: She is hemoconcentrated due to dehydration. I expect her hemoglobin and hematocrit to fall with hydration. Will continue to monitor daily. (5) Hypercalcemia: Code(s): E83.52 - Hypercalcemia Status: Acute Assessment and Plan: Secondary to dehydration with current current thiazide diuretic use. Calcium noted to be within normal limits with last hospitalization, making other etiologies unlikely. (6) Hypomagnesemia: Code(s): E83.42 - Hypomagnesemia Status: Resolved Assessment and Plan: Magnesium will be replaced and monitored. (7) GERD (gastroesophageal reflux disease): Qualifiers: Esophagitis presence: esophagitis presence not specified Qualified Code(s): K21.9 - Gastro-esophageal reflux disease without esophagitis Code(s): K21.9 - Gastro-esophageal reflux disease without esophagitis Status: Acute Assessment and Plan: With gastritis and evidence of Mae's esophagus on recent upper endoscopy as per HPI. Continue Protonix and sucralfate. Subjective Date/time seen: 09/20/19 13:00 Patient is 63-year-old female with history of diabetes, on recent EGD patient is found to have gastritis and Mae esophagitis patient presented emergency department with a complaint of nausea and vomiting persisting for last 2 days was not able to take anything p.o. or hold it, patient became quite tired and fatigue had difficulty ambulating, to the emergency department for further evaluation and was found to have hyperglycemia with DKA patient was admitted to ICU and started on insulin drip and with vigorously dehydrated, her symptoms h
[2019-09-20] MEDS: POTASSIUM CHLORIDE 20 MEQ TABLET 40 MEQ PO (13:40)
[2019-09-20] MEDS: MAGNESIUM SULF 2 GM/WATER 50ML 2 GM/50 ML BAG IVPB (13:40)
[2019-09-20 14:55] VITALS: BP 122/72; PULSE 89; RESP 16; TEMP 36.7; O2SAT 100
[2019-09-20 19:57] LABS: Glucose Point of Care 176 (65-105)
[2019-09-20 21:14] LABS: Glucose Point of Care 105 (65-105)
[2019-09-20] MEDS: polyethylene glycoL 3350 17 GM POWD.PACK PO (21:48)
[2019-09-20 22:00] VITALS: BP 149/76; PULSE 78; RESP 16; TEMP 36.2; O2SAT 100
[2019-09-21] MEDS: LACTATED RINGERS 1,000 ML 125 ML IV CONT ×2 (01:22→06:09)
[2019-09-21 06:00] VITALS: BP 155/83; PULSE 77; RESP 16; TEMP 36.6; O2SAT 100
[2019-09-21] MEDS: SUCRALFATE SUSP 100 MG/ML 10 ML UDC 1000 MG PO ×2 (06:08→12:27)
[2019-09-21 06:41] LABS: Blood Urea Nitrogen 12 mg/dL (7-17); Calcium 9.1 mg/dL (8.4-10.2); Carbon Dioxide 27 mmol/L (22-30); Chloride 109 mmol/L (98-107); Estimated CRCL calculation 77 ml/min; Estimated Glomerular Filt Rate > 60; Glucose 114 mg/dL (65-105); Magnesium 1.8 mg/dL (1.6-2.3); Potassium 3.4 mmol/L (3.4-5.0); Sodium 137 mmol/L (137-145)
[2019-09-21] MEDS: GABAPENTIN 300 MG CAPSULE 600 MG PO ×2 (08:15→12:30)
[2019-09-21] MEDS: MAGNESIUM OXIDE 400 MG TABLET PO (08:15)
[2019-09-21] MEDS: FLUTICASONE PROPIONATE 0.05% NA SPR 16 GM BTL (*BKC) 2 SPRAY NASAL (08:15)
[2019-09-21] MEDS: POTASSIUM CHLORIDE 20 MEQ TABLET 40 MEQ PO (08:15)
[2019-09-21] MEDS: MUPIROCIN 2% OINT 22 GM TUBE 1 APPLIC EACH NARE (08:16)
[2019-09-21] MEDS: PANTOPRAZOLE 40 MG TABLET PO (08:16)
[2019-09-21] MEDS: THERAPEUTIC MULTIVITAMINS/MINERALS TAB (*BKC) 1 TABLET PO (08:16)
[2019-09-21] MEDS: ROSUVASTATIN 10 MG TABLET PO (08:16)
[2019-09-21 08:34] LABS: Glucose Point of Care 122 (65-105)
[2019-09-21] MEDS: INSULIN ASPART (*BKC) 100 UNITS/ML SUB-Q ×2 (09:56→12:29)
--- NOTE | 2019-09-21 10:52 | PM.DS ---
DS: Diagnosis Admitting Diagnosis Admitting Diagnosis: Type 2 diabetes mellitus with ketoacidosis without coma Discharge Diagnosis (1) Diabetic ketoacidosis: Code(s): E11.10 - Type 2 diabetes mellitus with ketoacidosis without coma Status: Acute Assessment and Plan: With hyperglycemia, positive ketones, and metabolic acidosis on admission. Anion gap was 37 on arrival to the emergency department. early childhood special educator has met with patient. Sugars have been well controlled since admission She is to follow up with Network Engineer in September for further care Will discharge on 15 u lantus daily, 5 u Humalog TIDWM, and her to continue her correctional insulin regimen Continue metformin Patient agreeable and comfortable with plan D/c today home (2) Acute kidney injury: Code(s): N17.9 - Acute kidney failure, unspecified Status: Resolved Assessment and Plan: Secondary to dehydration from ongoing vomiting and poor oral intake. She is receiving aggressive IV fluid rehydration. Cr 0.60 on day of discharge Avoid nephrotoxic agents during stay RODGER appears to have resolved, back to baseline. Follow up with PCP when established (3) Dehydration: Code(s): E86.0 - Dehydration Status: Acute Assessment and Plan: Plan is as detailed above. (4) Chronic anemia: Code(s): D64.9 - Anemia, unspecified Status: Acute Assessment and Plan: H&H stable during stay. Hgb 11.0 on 09/18 F/u with pcp (5) Hypercalcemia: Code(s): E83.52 - Hypercalcemia Status: Resolved Assessment and Plan: Secondary to dehydration with current current thiazide diuretic use. Calcium 9.1 - resolved Follow up with PCP (6) Hypomagnesemia: Code(s): E83.42 - Hypomagnesemia Status: Resolved Assessment and Plan: Magnesium replaced and monitored. 1.8 today Follow up with PCP (7) GERD (gastroesophageal reflux disease): Qualifiers: Esophagitis presence: esophagitis presence not specified Qualified Code(s): K21.9 - Gastro-esophageal reflux disease without esophagitis Code(s): K21.9 - Gastro-esophageal reflux disease without esophagitis Status: Acute Assessment and Plan: With gastritis and evidence of Mae's esophagus on recent upper endoscopy as per HPI. Continue Protonix and carafate Switch to capsule carafate Follow up with GI DS: Summary Hospital Course Reason for hospitalization: N/V; Diabetic ketoacidosis, RODGER Hospital Course: Patient is a 63 yo F with history of DMII, HTN, GERD, and Mae's esophagus who presented to the ER on 09/17 with complaints of nausea and vomiting. Patient was recently admitted to the hospitalist service on 08/16/19 with RODGER attributed to dehydration. During that stay, an EGD was performed and showed gastritis and Mae's esophagus confirmed by histology. Patient had ongoing GERD symptoms. On 09/13, she developed sudden onset of n/v. She was not able to hold down food since that time leading up to her presentation to the ER. She felt lightheaded/dizzy and SOB on day of presentation. She had not checked her glucose since 09/13 because she felt like she did not had to check it because she had not eaten. In the ER, she was found to have met criteria for diabetic ketoacidosis and admitted under this setting; anion gap was 37 on arrival, positive ketones, and hyperglycemia. Please see H&P for further details. Presenting VS: Temp Pulse Resp BP Pulse Ox 97.4 F L 124 H 16 113/82 98 RA 09/18/19 14:00 09/18/19 14:00 09/18/19 14:00 09/18/19 14:00 09/18/19 14:00 Presenting Pertinent labs: ABG showed pH 7.273, pCO2 22.2, pO2 103.2, HCO
--- NOTE | 2019-09-21 11:20 | PCCDE ---
Diabetes education f/up: Pt preparing for discharge today. Reviewed reviewed discharge insulin instructions to include 15 units Lantus AM, 5 units Humalog before meals plus correction scale. Provided h/o: Mealtime insulin Management. Pt v/u. Reinforced importance of f/up with larry Zaman on 10/08 or call sooner with questions.
[2019-09-21 12:31] LABS: Glucose Point of Care 187 (65-105)
== END 2019-09-21 13:50 | disposition home or self-care (01) | DRG 638 ==
LOC: ANHED 15:42 → ANHICU 16:42 → ANH3MEDSUR 09-20 13:56 → ANHICU 09-24 15:27
PROVIDERS: Family Medicine; Internal Medicine Critical Care Medicine; Physician Assistant; Admitting Provider Hospitalist; Emergency Provider Emergency Medicine; Visit Provider Hospitalist
DX: E11.10 Type 2 diabetes mellitus with ketoacidosis without coma (principal); N17.9 Acute kidney failure, unspecified; E11.65 Type 2 diabetes mellitus with hyperglycemia; E86.0 Dehydration; D64.9 Anemia, unspecified; E83.52 Hypercalcemia; E83.42 Hypomagnesemia; K22.70 Barrett's esophagus without dysplasia; K21.9 Gastro-esophageal reflux disease without esophagitis; I10 Essential (primary) hypertension; F32.9 Major depressive disorder, single episode, unspecified; E11.42 Type 2 diabetes mellitus with diabetic polyneuropathy; K46.9 Unspecified abdominal hernia without obstruction or gangrene; Z87.891 Personal history of nicotine dependence
CPT/HCPCS: 36415; 36600; 74176; 80048; 80053; 81001; 82010; 82805; 83036; 83690; 83735; 84100; 85025; 85610; 85730; 87081; 87804; 96361; 96365; 96368; 96375; 97161; 97165; 99291; A9270; J1815; J2405; J3475; J3480; J7030; J7120

== ENCOUNTER 2020-01-09 07:30 | Outpatient (CLI) | payer MEDICARE, SELFPAY ==
--- NOTE | ~2020-01-09 | NM_ITS ---
EXAM: NM gastric emptying study DATE: 01/09/2020 14:03 CDT INDICATION: Type 2 diabetes TECHNIQUE: A gastric emptying study was performed using the methodology of Gael LEBRON, et al. J Nucl Med 2007; 48:568-572. The patient was given a meal consisting of 2 scrambled eggs labeled with 1 mCi Tc-99m sulfur colloid, 2 slices of toast, two packages of jam, and approximately 120 mL of water. Si multaneous anterior and posterior 1-min images of the abdomen were obtained with the patient supine a t multiple time points over a total period of 4 hours. The geometric mean of anterior and posterior v iews was determined, and the percentage retention was calculated for each time point. COMPARISON: CT dated 09/18/2019 FINDINGS: Gastric retention of the radiotracer-labeled meal was 52%, 31%, and 12% at the 1-hour, 2-h our, and 4-hour time points, respectively. With this technique, apparent rapid gastric emptying is choe ggested by <30% gastric retention at 1 hour. Delayed gastric emptying is defined by gastric retention of >90% at 1 hour, >60% retention at 2 hours, or >10% retention at 4 hours. IMPRESSION: 1. Delayed gastric emptying. Reviewed, dictated and finalized at location B.
== END 2020-01-09 07:31 | disposition home or self-care (01) ==
PROVIDERS: PCP Family Medicine; Visit Provider Internal Medicine Gastroenterology
DX: E11.9 Type 2 diabetes mellitus without complications (principal); K29.70 Gastritis, unspecified, without bleeding; R11.2 Nausea with vomiting, unspecified; K30 Functional dyspepsia
CPT/HCPCS: 78264; A9541

== ENCOUNTER 2020-01-12 00:22 | Outpatient (CLI) | payer MEDICARE, SELFPAY ==
[2020-01-12 18:31] LABS: SARS-CoV-2 RNA PCR Negative
== END 2020-01-12 00:23 | disposition home or self-care (01) ==
LOC: ANHCOVIDDT 00:23
PROVIDERS: PCP Family Medicine; Visit Provider Internal Medicine Gastroenterology
DX: Z01.812 Encounter for preprocedural laboratory examination (principal); Z11.59 Encounter for screening for other viral diseases
CPT/HCPCS: 87635; C9803; U0003

== ENCOUNTER 2020-01-15 02:08 | Day surgery (SDC) | payer MEDICARE, SELFPAY ==
[2020-01-04 12:20] VITALS: BMI 31.7
--- NOTE | 2020-01-14 12:40 | WPDANESEPPF ---
Anes - Initial Pre Proc Eval Procedure: Operation Date: 01/15/20 08:00 Proposed Procedures p Esophagogastroduodenoscopy - Andrea Roe MD Date/Time: 01/14/20 12:40 Surgeon: Andrea Roe MD Pre Op Diagnosis: choe's esophagus without dysphagia Patient Data Age: 64 Gender: F Height: 5 ft 1.5 in Weight: 77.5 kg Allergies Allergy/AdvReac Type Severity Reaction Status Date / Time semaglutide [From Ozempic] AdvReac Intermediate kidney Verified 01/15/20 06:42 failure Home Medications Medication Instructions Recorded Confirmed Type multivitamin,xd-[id number]-afuivdse 1 tablet PO DAILY 07/05/19 01/15/20 History metformin 500 mg tablet,extended 1,000 mg PO BID #360 tablet 10/09/19 01/15/20 Rx release 24 hr insulin lispro 100 unit/mL See Rx Instructions SUB-Q TID #15 10/23/19 01/15/20 Rx subcutaneous pen ml triamcinolone acetonide 0.1 % 1 applic TOPICAL BID PRN #30 gm 11/27/19 11/27/19 Rx topical cream amlodipine 2.5 mg tablet 2.5 mg PO DAILY #90 tablet 12/26/19 01/15/20 Rx fluticasone propionate 50 2 spray INTRANASAL QAM #9.9 ml 12/26/19 01/15/20 Rx mcg/actuation nasal spray,suspension gabapentin 600 mg tablet 600 mg PO TID #270 tablet 12/26/19 01/15/20 Rx lancets 33 gauge #400 each 12/26/19 Rx pantoprazole 40 mg tablet,delayed 40 mg PO Q12HR #60 tablet 12/26/19 01/15/20 Rx release pen needle, diabetic 32 gauge x #300 each 12/26/19 Rx 5/32 rosuvastatin 20 mg tablet 10 mg PO DAILY #90 tablet 12/26/19 01/15/20 Rx valsartan 160 1 tablet PO DAILY #90 tablet 12/26/19 01/15/20 Rx mg-hydrochlorothiazide 25 mg tablet insulin glargine [Lantus Solostar 35 unit SUB-Q DAILY 01/04/20 01/15/20 History U-100 Insulin] blood sugar diagnostic #400 each 01/14/20 Rx Patient hx anesthesia problems: none Family hx anesthesia problems: none PMFSH Past Medical History Medical History (Updated 12/13/19 @ 09:03 by Andrea Roe MD) Barretts esophagus Chronic anemia Colon cancer screening Depression GERD (gastroesophageal reflux disease) Hiatal hernia Hypercholesterolemia Hypertension Long-term insulin use Mitral valve prolapse Type 2 diabetes mellitus with peripheral neuropathy Surgical History Surgical History History of arthroscopy of both knees History of foot surgery ORIF left foot fracture. Social History Social History Social History: The patient is and lives with her in [place]. She smoked remotely in the late 1970s to the early 80s. She denies alcohol and drug abuse. She designates her , Manjinder, as her surrogate decision maker and she wishes to be a full code. Years smoked: 7 Smoking status: Former smoker Tobacco type: cigarettes Smoking end date: 02/25/82 Alcohol intake: current Substance use: never Substance use type: does not use Gender identity (if verbalized by the patient): Female Spiritual care concerns: No Agree to blood products: No Anes - Eval Final PreProcedure Day of Procedure 01/14/20 12:40 Patient weight: overweight Heart: regular rate and rhythm Lungs: clear to auscultation Airway: Mallampati scale class II Neurological: alert and oriented Last oral intake: >/= 8 hours ASA classification: III Emergent: no Anesthetic plan: proceed Anesthesia type and monitoring: general GIVS and standard monitoring Informed Consent: The patient's anesthetic plan and its attendant risks and benefits were discussed with the patient/family/POA. Questions were solicited and answers provided to the satisfaction of the patient/family/POA.
[2020-01-15 06:44] VITALS: BP 126/76; PULSE 81; RESP 18; TEMP 36.2; O2SAT 98
[2020-01-15] MEDS: LACTATED RINGERS 1,000 ML 150 ML IV CONT (07:00)
[2020-01-15 07:03] LABS: Glucose Point of Care 152 (65-105)
[2020-01-15 08:28] VITALS: BP 117/74; PULSE 71; RESP 16; O2SAT 99
--- NOTE | 2020-01-15 08:33 | PM.HPGS ---
History of Present Illness History of Present Illness Consent: Risks, benefits, and alternatives have been discussed and questions answered. Patient agrees to proceed with procedure. Chief complaint: choe's esophagus without dysphagia Narrative: Elke Pink is a 64 year old female with choe's, here to reassess Review of Systems Constitutional: Constitutional: Denies headache(s) and Denies weakness Eyes: Eyes: Denies blurry vision ENT: Reports Normal hearing present, Denies headache(s) and Denies neck pain Cardiovascular: Cardiovascular: Denies chest pain and Denies dyspnea Respiratory: Respiratory: Denies dyspnea Gastrointestinal: Gastrointestinal: Reports no additional gastrointestinal complaints Genitourinary: Genitourinary: Denies dysuria Musculoskeletal: Musculoskeletal: Denies neck pain Integumentary/Breasts: Skin/Breast: Denies dry skin Neurologic: Reports Normal hearing present, Denies headache(s) and Denies weakness Psychiatric: Psychiatric: Denies anxiety Endocrine: Endocrine: Denies change in body appearance Hematologic/Lymphatic: Hematologic/Lymphatic: Denies easy bleeding Allergic/Immunologic: Allergic/Immunologic: Denies urticaria PMFSH Past Medical History Medical History (Updated 12/13/19 @ 09:03 by Andrea Roe MD) Barretts esophagus Chronic anemia Colon cancer screening Depression GERD (gastroesophageal reflux disease) Hiatal hernia Hypercholesterolemia Hypertension Long-term insulin use Mitral valve prolapse Type 2 diabetes mellitus with peripheral neuropathy Surgical History Surgical History History of arthroscopy of both knees History of foot surgery ORIF left foot fracture. Social History Social History Social History: The patient is and lives with her in [place]. She smoked remotely in the late 1970s to the early 80s. She denies alcohol and drug abuse. She designates her , Manjinder, as her surrogate decision maker and she wishes to be a full code. Years smoked: 7 Smoking status: Former smoker Tobacco type: cigarettes Smoking end date: 02/25/82 Alcohol intake: current Substance use: never Substance use type: does not use Gender identity (if verbalized by the patient): Female Spiritual care concerns: No Agree to blood products: No Meds Home Medications and Allergies Home Medications Medication Instructions Recorded Confirmed Type multivitamin,bs-fgho-thzvyocq 1 tablet PO DAILY 07/05/19 01/15/20 History metformin 500 mg tablet,extended 1,000 mg PO BID #360 tablet 10/09/19 01/15/20 Rx release 24 hr insulin lispro 100 unit/mL See Rx Instructions SUB-Q TID #15 10/23/19 01/15/20 Rx subcutaneous pen ml triamcinolone acetonide 0.1 % 1 applic TOPICAL BID PRN #30 gm 11/27/19 11/27/19 Rx topical cream amlodipine 2.5 mg tablet 2.5 mg PO DAILY #90 tablet 12/26/19 01/15/20 Rx fluticasone propionate 50 2 spray INTRANASAL QAM #9.9 ml 12/26/19 01/15/20 Rx mcg/actuation nasal spray,suspension gabapentin 600 mg tablet 600 mg PO TID #270 tablet 12/26/19 01/15/20 Rx lancets 33 gauge #400 each 12/26/19 Rx pantoprazole 40 mg tablet,delayed 40 mg PO Q12HR #60 tablet 12/26/19 01/15/20 Rx release pen needle, diabetic 32 gauge x #300 each 12/26/19 Rx 5/32 rosuvastatin 20 mg tablet 10 mg PO DAILY #90 tablet 12/26/19 01/15/20 Rx valsartan 160 1 tablet PO DAILY #90 tablet 12/26/19 01/15/20 Rx mg-hydrochlorothiazide 25 mg tablet insulin glargine [Lantus Solostar 35 unit SUB-Q DAILY 01/04/20 01/15/20 History U-100 Insulin] blood sugar diagnostic #400 each 01/14/20 Rx Allergies Allergy/AdvReac Type Severity Reaction Status Date / Time semaglutide [From Ozempic] AdvReac Intermediate kidney Verified 01/15/20 06:42 failure Vital Signs Vital Signs - 24 hr 01/15/20 06:
[2020-01-15 08:38] VITALS: BP 140/87; PULSE 68; RESP 17; O2SAT 100
[2020-01-15 08:48] VITALS: BP 146/87; PULSE 73; RESP 14; O2SAT 99
== END 2020-01-15 08:59 | disposition home or self-care (01) ==
PROVIDERS: PCP Family Medicine; Visit Provider Internal Medicine Gastroenterology
PROC: 0DJ08ZZ Inspection of Upper Intestinal Tract, Via Natural or Artificial Opening Endoscopic (ICD-10-PCS; CPT 43235; principal; 2020-01-15 08:00)
DX: K21.0 Gastro-esophageal reflux disease with esophagitis (principal); K22.70 Barrett's esophagus without dysplasia; K44.9 Diaphragmatic hernia without obstruction or gangrene; K31.7 Polyp of stomach and duodenum; I10 Essential (primary) hypertension; E78.00 Pure hypercholesterolemia, unspecified; E11.40 Type 2 diabetes mellitus with diabetic neuropathy, unspecified; I34.1 Nonrheumatic mitral (valve) prolapse; D64.9 Anemia, unspecified; F32.9 Major depressive disorder, single episode, unspecified; Z79.4 Long term (current) use of insulin; Z87.891 Personal history of nicotine dependence; Z79.84 Long term (current) use of oral hypoglycemic drugs
CPT/HCPCS: 43239; 88305; J2001; J2704; J7120

== ENCOUNTER 2020-02-29 08:16 | Outpatient (CLI) | payer MEDICARE, SELFPAY ==
[2020-02-29 09:13] LABS: Potassium 4.2 mmol/L (3.4-5.0)
[2020-02-29 09:16] LABS: Blood Urea Nitrogen 19 mg/dL (7-17)
[2020-02-29 09:17] LABS: Anion Gap 10 mmol/L (8-16); Calcium 9.9 mg/dL (8.4-10.2); Carbon Dioxide 30 mmol/L (22-30); Chloride 97 mmol/L (98-107); Cholesterol 171 mg/dL (0-200); Estimated Glomerular Filt Rate > 60; Glucose 251 mg/dL (65-105); HDL Direct 40 mg/dL; Sodium 137 mmol/L (137-145); Triglycerides 260 mg/dL (<150)
[2020-02-29 09:24] LABS: LDL Cholesterol Direct 80 mg/dL
[2020-02-29 09:35] LABS: Creatinine Urine 73.1 mg/dL
[2020-02-29 09:45] LABS: Thyroid Stimulating Hormone 0.084 uIU/mL (0.465-4.680)
[2020-02-29 10:06] LABS: Microalbumin Urine Random < 6.0 mg/L (0-16.7)
[2020-02-29 10:07] LABS: MALB Creatinine Ratio < 8.2 mg/g (0-30)
== END 2020-02-29 08:17 | disposition home or self-care (01) ==
LOC: ANHLAB 08:18
PROVIDERS: PCP Family Medicine; Visit Provider Internal Medicine Endocrinology, Diabetes & Metabolism
DX: E11.65 Type 2 diabetes mellitus with hyperglycemia (principal)
CPT/HCPCS: 36415; 80048; 80061; 82043; 82607; 84443

== ENCOUNTER 2020-04-09 13:22 | Outpatient (CLI) | payer MEDICARE, SELFPAY ==
[2020-04-09 14:40] LABS: Thyroid Stimulating Hormone < 0.015 uIU/mL (0.465-4.680)
[2020-04-13 06:32] LABS: Triiodothyronine T3 Free 2.7 pg/mL (2.3-4.2)
[2020-04-14 13:53] LABS: Thyroid Stimulating Immunoglob <89 % baseline (<140)
== END 2020-04-09 13:23 | disposition home or self-care (01) ==
PROVIDERS: PCP Family Medicine; Visit Provider Internal Medicine Endocrinology, Diabetes & Metabolism
DX: R79.89 Other specified abnormal findings of blood chemistry (principal); E04.9 Nontoxic goiter, unspecified
CPT/HCPCS: 36415; 84439; 84443; 84445; 84481

== ENCOUNTER 2020-04-22 13:44 | Outpatient (CLI) | payer MEDICARE, SELFPAY ==
--- NOTE | ~2020-04-22 | NM_ITS ---
EXAMINATION: NM thyroid scan w uptake DATE: 04/23/2020 14:49 INDICATION: Thyrotoxicosis, unspecified without thyrotoxic crisis. COMPARISON: None. TECHNIQUE: 0.341 mCi I-123 was administered orally. Scintigraphic images of the thyroid gland were o btained at 24 hours. Thyroid uptake was calculated by the technologist. FINDINGS: The thyroid uptake is 18% (normal 10-30%), with the right lobe measuring 10% uptake and the left 8%. There is no focal area of decreased or increased activity to suggest hypofunctioning or hyperfunction ing nodule. IMPRESSION: 1. Normal thyroid scintigraphy and 24-hour iodine uptake. Reviewed, dictated and finalized at location A.
== END 2020-04-22 13:45 | disposition home or self-care (01) ==
PROVIDERS: PCP Family Medicine; Visit Provider Internal Medicine Endocrinology, Diabetes & Metabolism
DX: E05.90 Thyrotoxicosis, unspecified without thyrotoxic crisis or storm (principal)
CPT/HCPCS: 78014; A9516

== ENCOUNTER 2020-05-29 15:24 | Outpatient (CLI) | payer MEDICARE, SELFPAY ==
[2020-05-29 16:51] LABS: Thyroid Stimulating Hormone 0.372 uIU/mL (0.465-4.680)
[2020-05-29 17:37] LABS: Free T4 Free Thyroxine 0.94 ng/mL (0.78-2.19)
[2020-06-03 15:44] LABS: Triiodothyronine T3 Free 2.6 pg/mL (2.3-4.2)
== END 2020-05-29 15:25 | disposition home or self-care (01) ==
LOC: ANHLAB 15:26
PROVIDERS: PCP Family Medicine; Visit Provider Internal Medicine Endocrinology, Diabetes & Metabolism
DX: E05.90 Thyrotoxicosis, unspecified without thyrotoxic crisis or storm (principal); E04.9 Nontoxic goiter, unspecified
CPT/HCPCS: 36415; 84439; 84443; 84481

== ENCOUNTER 2020-07-09 11:12 | Outpatient (CLI) | payer MEDICARE, SELFPAY ==
[2020-07-09 12:57] LABS: Thyroid Stimulating Hormone 0.094 uIU/mL (0.465-4.680)
[2020-07-09 13:05] LABS: Free T4 Free Thyroxine 0.96 ng/mL (0.78-2.19)
== END 2020-07-09 11:13 | disposition home or self-care (01) ==
LOC: ANHLAB 11:16
PROVIDERS: PCP Family Medicine; Visit Provider Internal Medicine Endocrinology, Diabetes & Metabolism
DX: E05.90 Thyrotoxicosis, unspecified without thyrotoxic crisis or storm (principal); E04.9 Nontoxic goiter, unspecified
CPT/HCPCS: 36415; 84439; 84443; 84481

== ENCOUNTER 2020-07-10 14:22 | Outpatient (CLI) | payer MEDICARE, SELFPAY ==
[2020-07-10 14:44] LABS: Add Urine Microscopic? YES; Appearance Urine Clear (Clear); Bacteria Urine Trace /hpf; Bilirubin Urine Negative (Negative); Blood Urine Negative (Negative); Color Urine Yellow (Yellow); Glucose Urine UA 3+ mg/dL (Negative); Ketones Urine Negative (Negative); Leukocyte Esterase Ur 1+ LEU/UL (NEGATIVE); Mucus Urine Rare /lpf; Nitrate Urine Negative (Negative); Protein Urine Negative (Negative); Specific Grav Ur 1.015 (1.001-1.035); Squamous Epithelial Cell Urine Moderate /hpf (Few); Urobilinogen Urine Negative mg/dL (<2.0); WBC Urine 16-20 /hpf (0-3)
== END 2020-07-10 14:23 | disposition home or self-care (01) ==
LOC: ANHLAB 14:25
PROVIDERS: PCP Family Medicine; Visit Provider Internal Medicine Endocrinology, Diabetes & Metabolism
DX: R35.0 Frequency of micturition (principal)
CPT/HCPCS: 81001

== ENCOUNTER 2020-08-29 12:30 | Outpatient (CLI) | payer MEDICARE, SELFPAY ==
[2020-08-29 13:37] LABS: Thyroid Stimulating Hormone 0.041 uIU/mL (0.465-4.680); Total Triiodothyronine (T3) 1.08 NG/ML (0.97-1.69)
[2020-08-29 13:53] LABS: Free T4 Free Thyroxine 0.75 ng/mL (0.78-2.19)
== END 2020-08-29 12:31 | disposition home or self-care (01) ==
PROVIDERS: PCP Family Medicine; Visit Provider Internal Medicine Endocrinology, Diabetes & Metabolism
DX: E05.90 Thyrotoxicosis, unspecified without thyrotoxic crisis or storm (principal)
CPT/HCPCS: 36415; 84439; 84443; 84480

== ENCOUNTER 2020-09-26 14:50 | Outpatient (CLI) | payer MEDICARE, SELFPAY ==
--- NOTE | ~2020-09-26 | DEXA_ITS ---
Bone Density Report Name: Elke Pink Age: 64 Sex: Female Ethnicity: White Date of : 1955 Indication: postmenopausal; Referring Provider: Mala Zaman Study: Bone densitometry was performed. Exam Date: September 26, 2020 Accession number: [id number] Bone Density: Region BMD T-score Z-score Classification AP Spine (L1-L4) 1.086 0.4 2.0 Normal Femoral Neck (Left) 0.775 -0.7 0.7 Normal Total Hip (Left) 1.052 0.9 2.0 Normal Total Hip Bilateral Avg 1.050 0.8 2.0 Normal Femoral Neck (Right) 0.821 -0.3 1.2 Normal Total Hip (Right) 1.046 0.8 2.0 Normal World Health Organization criteria for BMD impression classify patients as: Normal (T-score at or above -1.0), Osteopenia (T-score between -1.0 and -2.5), or Osteoporosis (T-score at or below -2.5). 10-year Fracture Risk: FRAX not reported because: All T-scores for Spine Total, Hip Total, Femoral Neck at or above -1.0 Clinical Information Provided by Patient: Patient maximum height was 62 Menopause Age: 57 No regular weight bearing exercise Drinks caffeinated beverages Onset of menses at age 15 Number of children 4 Impression: The patient has normal bone mass. Discussion: BONE DENSITY IS ABOVE THE MINIMUM DESIRABLE LEVEL AT ALL SKELETAL SITES TESTED. This patient?s bone mineral density is above the minimum desirable level (T-score -1.0 or better) at all sites measured. The patient should follow a healthful lifestyle (good nutrition with adequate calcium and vitamin D, and appropriate weight-bearing exercise). Follow-Up: Consider repeating this study in 5 years or sooner if there is some new clinical indication. Reported by: [facility] on 09/26/2020 3:21:00 PM. Reviewed, dictated and finalized at location AKaila [facility]
== END 2020-09-26 14:51 | disposition home or self-care (01) ==
LOC: ANHIMG 14:51
PROVIDERS: PCP Family Medicine; Visit Provider Internal Medicine Endocrinology, Diabetes & Metabolism
DX: Z78.0 Asymptomatic menopausal state (principal)
CPT/HCPCS: 77080

== ENCOUNTER 2020-10-29 13:27 | Outpatient (CLI) | payer MEDICARE, SELFPAY ==
--- NOTE | ~2020-10-29 | CT_ITS ---
EXAMINATION: CT chest high resolution wo ut EXAM DATE: 10/29/2020 14:02 INDICATION: R06.00 - Dyspnea, unspecified . TECHNIQUE: Spiral CT of the chest without contrast. HRCT. Axial, coronal and sagittal images of the chest were reviewed. Coronal maximum intensity pixel images of chest reviewed. The dose-length prod uct (DLP) for this examination was 178.89 mGy-cm. The exposure was tailored according to patient siz e (auto mA exposure control), and iterative reconstruction (ASIR) was used as additional dose reducti on technique. Comparison is made to prior examination from 03/22/2019. FINDINGS: Resolution of some previously seen groundglass opacities. Otherwise no interval change. The re is a nodule in the right upper lobe along the major fissure measuring 7 mm, a noncalcified granulo ma given stability. Mild bronchiectasis. Mild bilateral peripheral interlobular septal thickening, ap pearance most consistent with chronic interstitial lung disease, not significantly changed compared t o prior examination. No honeycombing. There are no pleural or pericardial effusions. Tracheobronch ial tree is patent. There is no mediastinal, hilar or axillary lymphadenopathy. There is no pneum othorax. Heart normal in size. There is mild coronary arterial calcification, arterial sclerosis. There is thoracic spondylosis without osteoblastic or osteolytic lesions identified. There is no significant interval change. IMPRESSION: 1. Mild chronic interstitial lung disease. 2. Mild bronchiectasis. 3. Moderate hiatal hernia. 4. Right upper lobe granuloma. Reviewed, dictated and finalized at location B.
== END 2020-10-29 13:28 | disposition home or self-care (01) ==
PROVIDERS: PCP Family Medicine; Visit Provider Internal Medicine Critical Care Medicine
DX: R06.00 Dyspnea, unspecified (principal); J47.9 Bronchiectasis, uncomplicated; K44.9 Diaphragmatic hernia without obstruction or gangrene; J84.9 Interstitial pulmonary disease, unspecified
CPT/HCPCS: 71250

== ENCOUNTER 2020-11-12 15:27 | Outpatient (CLI) | payer MEDICARE, SELFPAY ==
[2020-11-15 11:23] LABS: Immunoglobulin A 326 mg/dL (70-320); Immunoglobulin G 741 mg/dL (600-1540); Immunoglobulin M 59 mg/dL (50-300)
[2020-11-23 21:27] LABS: ANA Cascade Screen Negative (Negative)
== END 2020-11-12 15:28 | disposition home or self-care (01) ==
LOC: ANHLAB 15:28
PROVIDERS: PCP Family Medicine; Visit Provider Internal Medicine Critical Care Medicine
DX: R06.00 Dyspnea, unspecified (principal)
CPT/HCPCS: 36415; 82784; 86038

== ENCOUNTER 2020-12-23 08:42 | Outpatient (CLI) | payer MEDICARE, SELFPAY ==
--- NOTE | 2020-12-23 10:43 | PCRCNOTE ---
PT WAS SCHEDULED FOR A METHCHOLINE CHALLENGE TEST, BUT HASNT HAD A PFT PRE/POST YET. WE PERFORMED A PFT PRE/POST TODAY, WILL AWAIT APPT WITH LEILA TO DECIDE IF FURTHER TESTING IS REQUIRED.
--- NOTE | 2020-12-23 12:34 | WPDPFTINT ---
PFT Procedure Performed PFT Procedure Performed Spirometry with Pre/Post Bronchodilator Plethysmography (Lung Vol) Diffusing Cap (DLCO) Flow Vol Loop PFT Interpretation This is a pulmonary function test with pre and post-bronchodilator spirometry, plethysmography and diffusing capacity. The test was performed and results interpreted in accordance with the 2019 and 2005 ATS/ERS Task Force guidelines respectively using the Global Lung Function Initiative-2012 reference equations. Patient demonstrated good effort and cooperation. Reproducibility criteria were met. The quality of the pre bronchodilator spirometry maneuver was Grade A and post bronchodilator spirometry maneuver was Grade A. Findings: Spirometry: The contour of the expiratory flow tracing is that of a witch's hat . The contour of the inspiratory flow tracing is normal. The pre bronchodilator FVC is 2.42 L, 85% predicted. The pre bronchodilator FEV1 is 2.09 L, 93% predicted. The FEV1: FVC ratio was 86%. The post bronchodilator FVC is 2.24 L, representing a 7% decrease. The post bronchodilator FEV1 is 2.07 L, representing 1% decrease. Plethysmography: The total lung capacity is 3.22 L, 68% predicted. Functional residual capacity is 1.40 L, 53% predicted. The residual volume is 0.80 L, 41% predicted. Diffusing capacity: The absolute diffusion capacity is 12.8, 62% predicted. The diffusing capacity corrected for alveolar volume is 3.85, 86% predicted. Impression: There is a mild restrictive ventilatory abnormality with a normal FEV1. The spirometry is normal without evidence of an obstructive abnormality. There is no significant improvement after inhaling a single dose of albuterol. The absolute diffusing capacity is mildly decreased and normalizes when corrected for alveolar volume. There are no prior studies for comparison
== END 2020-12-23 08:43 | disposition home or self-care (01) ==
PROVIDERS: PCP Family Medicine; Visit Provider Internal Medicine Critical Care Medicine
DX: R06.00 Dyspnea, unspecified (principal); R94.2 Abnormal results of pulmonary function studies
CPT/HCPCS: 94060; 94726; 94729

== ENCOUNTER 2020-12-23 10:29 | Outpatient (CLI) | payer MEDICARE, SELFPAY ==
--- NOTE | ~2020-12-23 | XR_ITS ---
EXAMINATION: XR foot RT 2V EXAM DATE: 12/23/2020 10:55 INDICATION: M79.671 - Pain in right foot. Pt c/o pain in right foot lateral side with sharp pain x mo nth, hx of broken rt foot 3 years ago, pt unsure which bone. TECHNIQUE: Frontal and lateral projections of the right foot. Comparison is made to prior examinatio n from 12/17/2017. FINDINGS: Small right calcaneal inferior spur. There is mild 1st metatarsophalangeal joint primary o steoarthritis. No periosteal reaction or band of sclerosis to suggest subacute stress fracture. Ther e are no acute fractures or dislocations identified. There is no subcutaneous gas. The soft tissue is unremarkable. There are no radiopaque foreign bodies. 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 Small calcaneal spur. Reviewed, dictated and finalized at location A.
== END 2020-12-23 10:30 ==
PROVIDERS: PCP Family Medicine; Visit Provider Family Medicine
DX: M19.071 Primary osteoarthritis, right ankle and foot (principal)
CPT/HCPCS: 73620

== ENCOUNTER 2021-01-30 13:14 | Outpatient (CLI) | payer MEDICARE, SELFPAY ==
[2021-01-30 13:50] LABS: Alanine Aminotransferase 36 U/L (4-35); Albumin Level 4.8 g/dL (3.5-5.1); Alkaline Phosphatase 92 U/L (38-126); Anion Gap 10 mmol/L (8-16); Aspartate Amino Transferase 42 U/L (14-36); Bilirubin,Total 0.2 mg/dL (0.2-1.3); Blood Urea Nitrogen 17 mg/dL (7-17); Calcium 10.4 mg/dL (8.4-10.2); Carbon Dioxide 29 mmol/L (22-30); Chloride 98 mmol/L (98-107); Cholesterol 189 mg/dL (0-200); Estimated Glomerular Filt Rate > 60; Glucose 162 mg/dL (65-110); HDL Direct 50 mg/dL; Potassium 3.8 mmol/L (3.4-5.0); Sodium 137 mmol/L (137-145); Triglycerides 263 mg/dL (<150)
[2021-01-30 13:53] LABS: Rheumatoid Factor < 8.6 IU/ML (<12)
[2021-01-30 14:01] LABS: LDL Cholesterol Direct 86 mg/dL
[2021-01-30 14:10] LABS: Creatinine Urine 57.6 mg/dL
[2021-01-30 14:14] LABS: MALB Creatinine Ratio 14.9 mg/g (0-30); Microalbumin Urine Random 8.6 mg/L (0-16.7)
[2021-01-30 14:20] LABS: Thyroid Stimulating Hormone 0.096 uIU/mL (0.465-4.680)
[2021-01-30 14:25] LABS: Free T4 Free Thyroxine 0.83 ng/mL (0.78-2.19)
[2021-02-02 22:23] LABS: ANCA Screen Negative (Negative)
== END 2021-01-30 13:15 | disposition home or self-care (01) ==
LOC: ANHLAB 13:17
PROVIDERS: Internal Medicine Pulmonary Disease; PCP Family Medicine; Visit Provider Internal Medicine Endocrinology, Diabetes & Metabolism
DX: E05.90 Thyrotoxicosis, unspecified without thyrotoxic crisis or storm (principal); E11.65 Type 2 diabetes mellitus with hyperglycemia; E78.00 Pure hypercholesterolemia, unspecified; G62.9 Polyneuropathy, unspecified; Z79.4 Long term (current) use of insulin; E11.9 Type 2 diabetes mellitus without complications; Z78.0 Asymptomatic menopausal state; R06.00 Dyspnea, unspecified
CPT/HCPCS: 36415; 80053; 80061; 82043; 82607; 84439; 84443; 86021; 86331; 86430; 86606; 86609

== ENCOUNTER 2021-02-11 08:35 | Outpatient (CLI) | payer MEDICARE, SELFPAY ==
[2021-02-11 08:50] VITALS: PULSE 95; O2SAT 98
[2021-02-11 08:55] VITALS: PULSE 116; O2SAT 98
[2021-02-11 09:10] VITALS: PULSE 96; O2SAT 98
--- NOTE | 2021-02-11 09:25 | HOMEO2EVAL ---
Evaluation was performed at [facility] Home Oxygen Evaluation RC: Home Oxygen (O2) Evaluation Start: 02/11/21 09:22 Freq: Status: Active Protocol: RPE Activity Type Activity Date Activity User E-Sign Co-Sign Detail Recorded Client Recorded Date Recorded By Document 02/11/21 08:50 DJO [email or web address] 02/11/21 09:25 DJO Document 02/11/21 08:55 DJO [email or web address] 02/11/21 09:25 DJO Document 02/11/21 09:10 DJO [email or web address] 02/11/21 09:25 DJO 02/11/21 02/11/21 02/11/21 08:50 08:55 09:10 Home O2 Evaluation Test Phase Resting Exercise Resting Oxygen Delivery Room Air Room Air Room Air Pulse Oximetry (90-100 %) 98 98 98 Pulse Rate (60-100 beats/min) 95 116 H 96 Activity Tolerance Excellent Rating of Perceived Dyspnea (PD) +1 Mild, Noticeable to the Participant but Not to an Observer Ambulation Distance (feet) 1,000 Treatment Charges O2 Evaluation - Outpatient
== END 2021-02-11 08:36 | disposition home or self-care (01) ==
PROVIDERS: PCP Family Medicine; Visit Provider Internal Medicine Pulmonary Disease
DX: R06.00 Dyspnea, unspecified (principal)
CPT/HCPCS: 94618

== ENCOUNTER 2021-07-08 12:50 | Outpatient (CLI) | payer MEDICARE, SELFPAY ==
--- NOTE | ~2021-07-08 | CT_ITS ---
EXAMINATION: CT chest high resolution [facility] EXAM DATE: 07/08/2021 13:22 INDICATION: R06.00 - Dyspnea, unspecified . TECHNIQUE: Spiral CT of the chest without contrast. HRCT. Axial, coronal and sagittal images of the chest were reviewed. Coronal maximum intensity pixel images of chest reviewed. The dose-length prod uct (DLP) for this examination was 210.28 mGy-cm. The exposure was tailored according to patient siz e (auto mA exposure control), and iterative reconstruction (ASIR) was used as additional dose reducti on technique. Comparison is made to prior examination from 10/29/2020. FINDINGS: Mild scattered regions peripheral interlobular septal thickening, appearance consistent wi th mild chronic interstitial lung disease. Mild bronchiectasis. Mild emphysema. 7 mm nodule along the right major fissure unchanged, granuloma.. There are no pleural or pericardial effusions. Tracheob ronchial tree is patent. There is no mediastinal, hilar or axillary lymphadenopathy. There is no pneumothorax. Heart normal in size. There is mild coronary arterial calcification, arterial scler osis. There is moderate sliding gastroesophageal hiatal hernia. There is mild thoracic spondylosis w ithout osteoblastic or osteolytic lesions identified. There is hemangioma within T6 vertebral body. T here is no significant interval change. IMPRESSION: 1. Mild chronic interstitial lung disease, emphysema and bronchiectasis unchanged. 2. Moderate sized gastroesophageal hiatal hernia. Reviewed, dictated and finalized at location A. VISUAL DESIGNER IMPRESSION: 1. Mild chronic interstitial lung disease, emphysema and bronchiectasis unchan ged. 2. Moderate sized gastroesophageal hiatal hernia.
--- NOTE | 2021-07-08 16:35 | P.PCNPFT_ITS ---
PFT Procedure Performed PFT Procedure Performed Spirometry with Pre/Post Bronchodilator Plethysmography (Lung Vol) Diffusing Cap (DLCO) Flow Vol Loop PFT Interpretation This is a pulmonary function test with pre and post-bronchodilator spirometry, plethysmography and diffusing capacity. The test was performed and results interpreted in accordance with the 2019 and 2005 ATS/ERS Task Force guidelines respectively using the Global Lung Function Initiative-2012 reference equations. Patient demonstrated good effort and cooperation. Reproducibility criteria were met. The quality of the pre bronchodilator spirometry maneuver was Grade A and post bronchodilator spirometry maneuver was Grade A. Findings: Spirometry: the contour the inspiratory and expiratory flow tracing are normal. The pre bronchodilator FVC is 2.46 L, 89% predicted. The pre bronchodilator FEV1 is 1.89 L, 87% predicted. The FEV1: FVC ratio is 77%. The post bronchodilator FVC is 2.50 L, representing a 2% increase. The post bronchodilator FEV1 is 2.01 L, representing a 7% increase. The post bronchodilator FEV1: FVC ratio is 81%. Plethysmography: The total lung capacity is 3.56 L, 77% predicted. The functional residual capacity is 2.02 L, 78% predicted. The residual volume is 1.10 L, 58% predicted. Diffusing capacity: The absolute diffusion capacity is 12.0, 60% predicted. The diffusing capacity corrected for alveolar volume is 3.73, 82% predicted. Impression: The spirometry is normal without evidence of an obstructive a bnormality. There is no significant improvement after inhaling a single dose of albuterol. The lung volumes are normal. The absolute diffusing capacity is moderately decreased and normalizes when corrected for alveolar volume. There are no prior studies for comparison
== END 2021-07-08 12:51 | disposition home or self-care (01) ==
PROVIDERS: PCP Family Medicine; Visit Provider Internal Medicine Pulmonary Disease
DX: R06.00 Dyspnea, unspecified (principal); J84.9 Interstitial pulmonary disease, unspecified; J43.9 Emphysema, unspecified; J47.9 Bronchiectasis, uncomplicated; K44.9 Diaphragmatic hernia without obstruction or gangrene
CPT/HCPCS: 71250; 94060; 94726; 94729

== ENCOUNTER 2022-01-15 10:10 | Outpatient (CLI) | payer MEDICARE, SELFPAY ==
--- NOTE | 2022-01-16 01:06 | WPDPFTINT ---
PFT Procedure Performed PFT Procedure Performed Spirometry with Pre/Post Bronchodilator Plethysmography (Lung Vol) Diffusing Cap (DLCO) Flow Vol Loop PFT Interpretation DOS: 01/15/2022 REQUESTING: Dr. Ramsey REASON FOR TESTING: Shortness of breath PULMONARY FUNCTION TESTS Results are reliable and reproducible. The patient stated she was having significant allergy issues during the last test in June 2021. Spirometry: Pre bronchodilator FEV1 is 105% predicted, 2.26 L, normal. Pre bronchodilator FVC is 90% predicted, 2.45 L, normal. FEV1/FVC is 92% predicted, normal. After bronchodilator administration there is no change to the FEV1. There is an 8% change in the FVC, not statistically significant. Lung volumes: Total lung capacity 99%, 4.54 L, normal. FRC is 42% predicted, 1.08 L, decreased. ERV is 26% predicted, 0.23 L, decreased. Residual volume 55% predicted, 1.06 L, below the limits of normal. RV/TLC is 23%, this is below normal limits. Airway resistance increased 170% predicted. Diffusion: DLCO 76%, 15.2 mL/min/mmHg, within the normal range. DLCO/VA is 86%, normal. Flow volume loop: Normal. IMPRESSION: Normal spirometry, lung volumes and diffusion. No change after bronchodilator. Lack of response to bronchodilator should not preclude use if clinically indicated. Compared to prior test July 08, 2021 the FEV1 was 87% now 105%. The FVC was 89% now 90%. Total lung capacity was 85% now 99%. There is no air trapping. The DLCO was 60%, mildly decreased. Results are similar. Radha Geller MD
== END 2022-01-15 10:11 | disposition home or self-care (01) ==
PROVIDERS: PCP Family Medicine; Visit Provider Internal Medicine Pulmonary Disease
DX: R06.02 Shortness of breath (principal)
CPT/HCPCS: 94060; 94726; 94729

== ENCOUNTER 2022-02-07 08:21 | Emergency (ER) | payer MEDICARE, SELFPAY ==
[2022-02-07 08:27] VITALS: BP 117/67; PULSE 93; RESP 16; TEMP 36.6; O2SAT 100
--- NOTE | 2022-02-07 08:28 | ED.SKABFB ---
HPI - Skin/Abscess/Foreign Bdy General Chief complaint: Skin/Abscess/Foreign Body Stated complaint: itchy rash Time Seen by Provider: 02/07/22 08:28 Source: patient, RN notes reviewed and old records reviewed Mode of arrival: ambulatory Limitations: no limitations History of Present Illness HPI narrative: 66 yo female present to the [facility] with complaints of a rash to underneath her breast, lower abdomen and butt cheeks. Reports them as being very itchy, underneath breasts kind of burning and itching. Patient reports the rash started yesterday. Patient recently on antibiotics. MD complaint: rash Related Data Home Medications Medication Instructions Recorded Confirmed cholecalciferol (vitamin D3) 10 10 mcg PO DAILY 11/12/20 02/07/22 mcg (400 unit) capsule vitamin B complex (B 1 tablet PO DAILY 11/12/20 12/23/21 Complex-Vitamin B12 tablet) Allergies Allergy/AdvReac Type Severity Reaction Status Date / Time semaglutide [From Ozempic] AdvReac Intermediate kidney Verified 02/07/22 08:28 failure Review of Systems Review of Systems: All systems reviewed & are unremarkable except as noted in HPI and below Constitutional: Constitutional: Reports no additional constitutional complaints, Denies chills and Denies fever(s) Eyes: Eyes: Reports no additional eye complaints ENT: Reports system reviewed and no additional complaints, except as documented Cardiovascular: Cardiovascular: Reports no additional cardiovascular complaints Respiratory: Respiratory: Reports no additional respiratory complaints Gastrointestinal: Gastrointestinal: Reports no additional gastrointestinal complaints Musculoskeletal: Musculoskeletal: Reports no additional musculoskeletal complaints Integumentary/Breasts: Skin/Breast: Reports as per HPI and Reports rash (Under bilateral breast, lower abd and lateral left buttock) Neurologic: Reports system reviewed and no additional complaints, except as documented Psychiatric: Psychiatric: Reports no additional psychiatric complaints Allergic/Immunologic: Allergic/Immunologic: Reports no additional allergic/immunologic complaints [facility] Past Medical History Medical History Barretts esophagus Chronic anemia Colon cancer screening Depression Frequent UTI GERD (gastroesophageal reflux disease) Hiatal hernia HLD (hyperlipidemia) Hypercholesterolemia Hypertension Long-term insulin use Mitral valve prolapse Type 2 diabetes mellitus with peripheral neuropathy Surgical History Surgical History History of arthroscopy of both knees History of foot surgery ORIF left foot fracture. Family History Family History Grandparent Family history of cardiovascular disease Diabetes mellitus Mother Hypertension Chronic obstructive pulmonary disease Other Depression Family history of blood dyscrasia Family history of cataracts Family history of glaucoma Family history of hearing loss Family history of kidney disease Family history of malignant neoplasm Family history of mental disorder Family history of obesity Social History Social History Social History: The patient is and lives with her in [place]. She smoked remotely in the late 1970s to the early 80s. She denies alcohol and drug abuse. She designates her , Manjinder, as her surrogate decision maker and she wishes to be a full code. Years smoked: 7 Smoking status: Former smoker Tobacco type: cigarettes Smoking end date: 02/25/82 Alcohol intake: current Alcohol use details: social drinker Substance use: never Substance use type: does not use Gender identity (if verbalized by the patient): Female Spiritual care concerns: No Agree to blood products: No Comme
== END 2022-02-07 08:47 | disposition home or self-care (01) ==
PROVIDERS: Emergency Provider Nurse Practitioner; PCP Family Medicine
DX: B37.2 Candidiasis of skin and nail (principal); L50.9 Urticaria, unspecified; Z87.891 Personal history of nicotine dependence; K22.70 Barrett's esophagus without dysplasia; K21.9 Gastro-esophageal reflux disease without esophagitis; E78.5 Hyperlipidemia, unspecified; E78.00 Pure hypercholesterolemia, unspecified; I10 Essential (primary) hypertension; I34.1 Nonrheumatic mitral (valve) prolapse; E11.42 Type 2 diabetes mellitus with diabetic polyneuropathy; Z79.4 Long term (current) use of insulin
CPT/HCPCS: 99213; G0463

== ENCOUNTER 2022-02-24 11:56 | Day surgery (SDC) | payer MEDICARE, SELFPAY ==
[2022-02-02 10:50] VITALS: BMI 29.2
[2022-02-10 10:45] VITALS: BMI 22.9
--- NOTE | 2022-02-23 21:02 | WPDANESEPPF ---
Anes - Initial Pre Proc Eval Procedure: Operation Date: 02/24/22 13:30 Proposed Procedures p Esophagogastroduodenoscopy - Andrea Roe MD <Greg Ram, DO - Last Filed: 03/08/22 15:40> Date/Time: 02/23/22 21:02 <Greg Ram, DO - Last Filed: 03/08/22 15:40> Surgeon: Andrea Roe MD <Greg Ram, DO - Last Filed: 03/08/22 15:40> Pre Op Diagnosis: Barretts Esophagus <Greg Ram DO - Last Filed: 03/08/22 15:40> Patient Data Age: 66 Gender: F Height: 1.78 m Weight: 72.5 kg <Greg Ram DO - Last Filed: 03/08/22 15:40> Allergies Allergy/AdvReac Type Severity Reaction Status Date / Time semaglutide [From Ozempic] AdvReac Intermediate kidney Verified 02/24/22 12:27 failure <Greg Ram DO - Last Filed: 03/08/22 15:40> Home Medications Medication Instructions Recorded Confirmed Type lancets 33 gauge #400 ea 07/23/20 02/07/22 Rx cholecalciferol (vitamin D3) 10 10 mcg PO DAILY 11/12/20 02/24/22 History mcg (400 unit) capsule vitamin B complex (B 1 tablet PO DAILY 11/12/20 02/24/22 History Complex-Vitamin B12 tablet) blood sugar diagnostic (OneTouch #400 ea 05/05/21 02/07/22 Rx Verio test strips) fluticasone propionate 50 2 spray intranasal QAM #9.9 mL 07/15/21 02/24/22 Rx mcg/actuation nasal spray,suspension valsartan 160 See Rx Instructions .Route 07/21/21 02/24/22 Rx mg-hydrochlorothiazide 25 mg tablet .COMPLEX #90 tabs amlodipine 2.5 mg tablet 2.5 mg PO DAILY #90 tabs 12/18/21 02/24/22 Rx atorvastatin 40 mg tablet 40 mg PO QHS #90 tabs 12/23/21 02/24/22 Rx gabapentin 600 mg tablet 600 mg PO TID 30 days #90 tabs 12/23/21 02/24/22 Rx insulin glargine 100 unit/mL (3 See Rx Instructions .Route 12/23/21 02/24/22 Rx mL) subcutaneous pen (Lantus .COMPLEX #45 mL Solostar U-100 Insulin) insulin lispro 100 unit/mL See Rx Instructions subcut TID #7 12/23/21 02/24/22 Rx subcutaneous pen (Humalog KwikPen syringes (U-100) Insulin) methimazole 5 mg tablet See Rx Instructions .Route 12/23/21 02/24/22 Rx .COMPLEX #90 tabs pantoprazole 40 mg tablet,delayed See Rx Instructions .Route 01/11/22 02/24/22 Rx release .COMPLEX #180 tabs methylprednisolone 4 mg tablets in See Rx Instructions PO .COMPLEX 02/07/22 02/24/22 Rx a dose pack (Medrol (Sam)) #21 ea nystatin 100,000 unit/gram topical 1 applic topical BID #15 grams 02/07/22 02/24/22 Rx cream triamcinolone acetonide 0.025 % 1 applic topical BID #15 grams 02/07/22 02/24/22 Rx topical cream empagliflozin 25 mg tablet 25 mg PO DAILY 90 days #90 tabs 02/25/22 Rx (Jardiance) flash glucose sensor (FreeStyle #6 ea 02/25/22 Rx Allison 2 Sensor kit) <Greg Ram DO - Last Filed: 03/08/22 15:40> Patient hx anesthesia problems: none <Quique Pa MD - Last Filed: 02/24/22 13:16> Family hx anesthesia problems: none <Quique Pa MD - Last Filed: 02/24/22 13:16> Results Review: All pre-operative results and documents have been reviewed as part of the pre-operative evaluation. <Greg Ram, - Last Filed: 03/08/22 15:40> PMFSH Past Medical History Medical History: Medical History Barretts esophagus Chronic anemia Colon cancer screening Depression Frequent UTI GERD (gastroesophageal reflux disease) Hiatal hernia HLD (hyperlipidemia) Hypercholesterolemia Hypertension Long-term insulin use Mitral valve prolapse Subclinical hyperthyroidism Type 2 diabetes mellitus with peripheral neuropathy <Greg Ram, - Last Filed: 03/08/22 15:40> Surgical History Surgical History: Surgical History History of arthroscopy of both knees History of foot surgery ORIF left foot fracture. <Greg Trujillo
[2022-02-24 12:15] VITALS: BP 146/89; PULSE 79; RESP 20; TEMP 36.3; O2SAT 100
[2022-02-24 12:24] VITALS: BMI 22.8
[2022-02-24] MEDS: LACTATED RINGERS 1,000 ML 150 ML IV CONT (12:33)
[2022-02-24 12:35] LABS: Glucose Point of Care 120 mg/dl (65-105)
--- NOTE | 2022-02-24 13:47 | PM.HPGS ---
History of Present Illness History of Present Illness Consent: Risks, benefits, and alternatives have been discussed and questions answered. Patient agrees to proceed with procedure. Chief complaint: Barretts Esophagus Narrative: Elke Pink is a 66 year old female with long segment choe's, no dysplasia in 2020, using protonix bid without any new problem. Here for another egd Review of Systems Constitutional: Constitutional: Denies headache(s) and Denies weakness Eyes: Eyes: Denies blurry vision ENT: Reports Normal hearing present, Denies headache(s) and Denies neck pain Cardiovascular: Cardiovascular: Denies chest pain and Denies dyspnea Respiratory: Respiratory: Denies dyspnea Gastrointestinal: Gastrointestinal: Reports no additional gastrointestinal complaints Genitourinary: Genitourinary: Denies dysuria Musculoskeletal: Musculoskeletal: Denies neck pain Integumentary/Breasts: Skin/Breast: Denies dry skin Neurologic: Reports Normal hearing present, Denies headache(s) and Denies weakness Psychiatric: Psychiatric: Denies anxiety Endocrine: Endocrine: Denies change in body appearance Hematologic/Lymphatic: Hematologic/Lymphatic: Denies easy bleeding Allergic/Immunologic: Allergic/Immunologic: Denies urticaria PMFSH Past Medical History Medical History Barretts esophagus Chronic anemia Colon cancer screening Depression Frequent UTI GERD (gastroesophageal reflux disease) Hiatal hernia HLD (hyperlipidemia) Hypercholesterolemia Hypertension Long-term insulin use Mitral valve prolapse Subclinical hyperthyroidism Type 2 diabetes mellitus with peripheral neuropathy Surgical History Surgical History History of arthroscopy of both knees History of foot surgery ORIF left foot fracture. Family History Family History Grandparent Family history of cardiovascular disease Diabetes mellitus Mother Hypertension Chronic obstructive pulmonary disease Other Depression Family history of blood dyscrasia Family history of cataracts Family history of glaucoma Family history of hearing loss Family history of kidney disease Family history of malignant neoplasm Family history of mental disorder Family history of obesity Social History Social History Social History: The patient is and lives with her in [place]. She smoked remotely in the late 1970s to the early 80s. She denies alcohol and drug abuse. She designates her , Manjinder, as her surrogate decision maker and she wishes to be a full code. Years smoked: 7 Smoking status: Never smoker Tobacco type: cigarettes Smoking end date: 02/25/82 Alcohol intake: never Alcohol use details: social drinker Substance use: never Substance use type: does not use Living arrangements: with family Gender identity (if verbalized by the patient): Female Spiritual care concerns: No Agree to blood products: No Meds Home Medications and Allergies Home Medications Medication Instructions Recorded Confirmed Type lancets 33 gauge #400 ea 07/23/20 02/07/22 Rx cholecalciferol (vitamin D3) 10 10 mcg PO DAILY 11/12/20 02/24/22 History mcg (400 unit) capsule vitamin B complex (B 1 tablet PO DAILY 11/12/20 02/24/22 History Complex-Vitamin B12 tablet) blood sugar diagnostic (OneTouch #400 ea 05/05/21 02/07/22 Rx Verio test strips) fluticasone propionate 50 2 spray intranasal QAM #9.9 mL 07/15/21 02/24/22 Rx mcg/actuation nasal spray,suspension valsartan 160 See Rx Instructions .Route 07/21/21 02/24/22 Rx mg-hydrochlorothiazide 25 mg tablet .COMPLEX #90 tabs flash glucose sensor (FreeStyle #6 ea 08/10/21 02/07/22 Rx Allison 2 Sensor kit) amlodipine 2.5 mg tablet
[2022-02-24 14:04] VITALS: BP 112/72; PULSE 70; RESP 18; O2SAT 100
[2022-02-24 14:14] VITALS: BP 106/81; PULSE 72; RESP 18; O2SAT 100
[2022-02-24 14:24] VITALS: BP 143/82; PULSE 68; RESP 20; O2SAT 100
--- NOTE | 2022-02-24 14:33 | WPDANESPN ---
Anes - Prog Note Post-Op Date/Time: 02/24/22 14:33 Cardiovascular status: normal Respiratory status: normal Airway patency: baseline Mental status: baseline Post-Op hydration status: normal Vital Signs: Last Vital Signs Temp 36.3 C L 02/24/22 12:15 Pulse 68 02/24/22 14:24 Resp 20 02/24/22 14:24 BP 143/82 H 02/24/22 14:24 Pulse Ox 100 02/24/22 14:24 O2 Del Method Room Air 02/24/22 14:24 Pain Score (VAS): 0 I/O: Intake & Output 02/23/22 02/24/22 02/24/22 23:59 07:59 15:59 Intake Total 350 Balance 350 02/24/22 12:32 POC Capillary Glucose 120 H Patient Feedback: Patient satisfied with anesthetic care.
== END 2022-02-24 14:40 | disposition home or self-care (01) ==
PROVIDERS: PCP Family Medicine; Visit Provider Internal Medicine Gastroenterology
PROC: 0DJ08ZZ Inspection of Upper Intestinal Tract, Via Natural or Artificial Opening Endoscopic (ICD-10-PCS; CPT 43235; principal; 2022-02-24 13:30)
DX: K22.70 Barrett's esophagus without dysplasia (principal)
CPT/HCPCS: 43239

== ENCOUNTER 2022-02-24 12:00 | Outpatient (NON) | payer MEDICARE, SELFPAY | END 2022-02-24 12:01 | disposition home or self-care (01) | LOC: ANHLAB 02-25 11:52 | PROVIDERS: PCP Family Medicine; Visit Provider Internal Medicine Gastroenterology | DX: R11.2 Nausea with vomiting, unspecified (principal) | CPT/HCPCS: 88305 ==

== ENCOUNTER 2022-04-21 08:04 | Outpatient (CLI) | payer MEDICARE, SELFPAY ==
--- NOTE | ~2022-04-21 | MM_ITS ---
EXAMINATION: MM screening sabina BI w jovanna HISTORY: Screening mammogram TECHNIQUE: Craniocaudal and mediolateral oblique 3-D tomosynthesis images were obtained and synthetic 2-D images were generated. CAD analysis was submitted and interpreted. COMPARISON: No prior mammogram is available for comparison at this institution. BREAST PARENCHYMAL COMPOSITION: There are scattered areas of fibroglandular density. FINDINGS: RIGHT BREAST: An asymmetry is present in the middle third of the outer breast 5 cm from the nipple on the craniocaudal view. LEFT BREAST: There is a small mass in the posterior third of the upper breast. IMPRESSION: 1. Bilateral breast findings as described above which may represent the patient's baseline however no comparison is currently available. 2. Comparison with prior mammograms is necessary. BI-RADS Category 0: Incomplete: Needs comparison with prior mammograms. Reviewed, dictated and finalized at location A. IMPRESSION: 1. Bilateral breast findings as described above which may represent the patient 's baseline however no comparison is currently available. 2. Comparison with prior mammograms is necessary. BI-RADS Category 0: Incomplete: Needs comparison with prior mammograms.
== END 2022-04-21 08:05 | disposition home or self-care (01) ==
PROVIDERS: PCP Family Medicine; Referring Provider Internal Medicine Endocrinology, Diabetes & Metabolism; Visit Provider Family Medicine
DX: Z12.31 Encounter for screening mammogram for malignant neoplasm of breast (principal); R92.8 Other abnormal and inconclusive findings on diagnostic imaging of breast
CPT/HCPCS: 77063; 77067

== ENCOUNTER 2023-01-06 07:51 | Outpatient (CLI) | payer MEDICARE, SELFPAY ==
--- NOTE | ~2023-01-06 | CT_ITS ---
EXAMINATION: CT chest high resolution wo mo DATE: 01/06/2023 09:52 INDICATION: Interstitial pulmonary disease, unspecified TECHNIQUE: Computed tomography (CT) of the chest was performed without intravenous contrast. The dose -length product (DLP) was 152.87 mGy-cm. Automated exposure control and iterative reconstruction tech [employer] were employed. COMPARISON: 07/08/2021 FINDINGS: There are stable subpleural reticular and groundglass opacities with a lower lung zone pred ominance. There is mild chronic bronchiectasis in the lower lobes. No honeycombing is identified. The re is a stable 8 mm nodule of the right major fissure. No pleural effusion or pneumothorax. There is a moderate-sized sliding hiatal hernia. Punctate calcifications in otherwise normal appearing liver a nd spleen likely represent healed granulomatous disease. There is moderate thoracic spondylosis. IMPRESSION: 1. Stable chronic interstitial lung disease in a pattern of nonspecific interstitial pneumonia (NSIP) . Reviewed, dictated and finalized at location L. IMPRESSION: 1. Stable chronic interstitial lung disease in a pattern of nonspecific interst itial pneumonia (NSIP).
--- NOTE | 2023-01-10 11:35 | WPDPFTINT ---
PFT Procedure Performed PFT Procedure Performed Spirometry with Pre/Post Bronchodilator Plethysmography (Lung Vol) Diffusing Cap (DLCO) Flow Vol Loop PFT Interpretation DOS: 01/06/2023 REQUESTING: Bethany Campo PA-C REASON FOR TESTING: ILD PULMONARY FUNCTION TESTS Results are reliable and reproducible. Spirometry: FEV1is 2.03 L, 110%, normal. FVC is 2.44 L, 105%, normal. FEV/FVC is 83%, normal. After bronchodilator, therei s a 2% increase in FEV1 and 4% increase in FVC not statistically significant. Lung volumes: Totlal haritha capacity is 3.83 L, 94%, normal. RV i 1.25 L, 69%, normal. RV/TLC is 33%, normal. Diffusion: DLCO is 12.2. 62%, below normal. DLCO/VA 3.86, 86%, normal. Normal. Flow volume loop: Normal IMPRESSION: Normal spirometry, normal lung volumes, mild decrease in DLCO which corrects for alveolar volume. Compared to a prior study 01/15/2022, 1 year ago, values are similar regarding spirometry and lung volumes however the DLCO previously was 15.2, 76% predicted now is 12.2, 62% predicted, below normal. This is a significant drop. The DLCO / VA corrected to 86% on the prior study. Clinical correlation recommended Radha Geller MD
== END 2023-01-06 07:52 | disposition home or self-care (01) ==
PROVIDERS: PCP Family Medicine; Visit Provider Physician Assistant
DX: J84.9 Interstitial pulmonary disease, unspecified (principal)
CPT/HCPCS: 71250; 94060; 94726; 94729

== ENCOUNTER 2023-06-01 13:24 | Outpatient (CLI) | payer MEDICARE, SELFPAY ==
--- NOTE | ~2023-06-01 | MM_ITS ---
EXAMINATION: MM screening sabina BI w jovanna HISTORY: Screening mammogram TECHNIQUE: Craniocaudal and mediolateral oblique 3-D tomosynthesis images were obtained and synthetic 2-D images were generated. CAD analysis was submitted and interpreted. COMPARISON: 04/21/2022, 04/10/2019, 03/01/2017 BREAST PARENCHYMAL COMPOSITION: There are scattered areas of fibroglandular density. FINDINGS: A stable asymmetry is present in the middle third outer right breast on the craniocaudal vi ew. A previously described mass in the posterior third of the left breast demonstrates decrease in si ze, consistent with a benign finding. No suspicious mass, calcification, or architectural distortion are identified in either breast to suggest malignancy. There has been no suspicious interval change. IMPRESSION: 1. No mammographic evidence of malignancy. 2. Recommend routine screening mammography in one year. BI-RADS Category 2: Benign finding(s). Reviewed, dictated and finalized at location A. [employer]ING TRAFFIC MANAGER
== END 2023-06-01 13:25 | disposition home or self-care (01) ==
LOC: ANHIMG 13:26
PROVIDERS: PCP Family Medicine; Visit Provider Family Medicine
DX: Z12.31 Encounter for screening mammogram for malignant neoplasm of breast (principal)
CPT/HCPCS: 77063; 77067

== ENCOUNTER 2024-01-31 09:27 | Outpatient (CLI) | payer MEDICARE, SELFPAY ==
--- NOTE | 2024-01-31 13:56 | WPDPFTINT ---
PFT Procedure Performed PFT Procedure Performed Spirometry with Pre/Post Bronchodilator Plethysmography (Lung Vol) Diffusing Cap (DLCO) Flow Vol Loop PFT Interpretation This is a pulmonary function test with pre and post-bronchodilator spirometry, plethysmography and diffusing capacity. The test was performed and results interpreted in accordance with the 2019 and 2005 ATS/ERS Task Force guidelines respectively using the Global Lung Function Initiative-2012 reference equations. Patient demonstrated good effort and cooperation. Reproducibility criteria were met. The quality of the pre bronchodilator spirometry maneuver was Grade A and post bronchodilator spirometry maneuver was Grade A. Findings: Spirometry: The contour the inspiratory and expiratory flow tracing are normal. The pre bronchodilator FVC is 2.32 L, 87% predicted. The pre bronchodilator FEV1 is 1.92 L, 91% predicted. The pre bronchodilator FEV1: FVC ratio is 83%. The post bronchodilator FVC is 2.39 L, representing a 3% increase. The post bronchodilator FEV1 is 1.95 L, representing a 2% increase. The post bronchodilator FEV1 is 82%. Plethysmography: The total lung capacity is 3.07 L, 67% predicted. The functional residual capacity is 1.34 L, 51% predicted. The residual volume is 0.57 L, 29% predicted. Diffusing capacity: The diffusing capacity unadjusted for hemoglobin and carboxyhemoglobin is 11.9, 61% predicted. The diffusing capacity adjusted for alveolar volume is 3.86, 86% predicted. In comparison to previous pulmonary function testing on 01/06/2023 the post bronchodilator FVC is unchanged from 2.53 L to 2.39 L. The post bronchodilator FEV1 is unchanged from 2.08 L to 1.95 L. The total lung capacity has decreased from 3.83 L to 3.07 L. The functional residual capacity has decreased from 2.01 L to 1.34 L. The residual volume is decreased from 1.25 L to 0.57 L. The diffusing capacity unadjusted for hemoglobin and carboxyhemoglobin is unchanged from 12.2 to 11.9. The diffusing capacity adjusted for alveolar volume is unchanged from 3.86 to 3.86. Impression: There is a mild restrictive ventilatory abnormality with a normal FEV1. The spirometry is normal without evidence of an obstructive abnormality. There is no significant improvement after inhaling a single dose of albuterol. The diffusing capacity unadjusted for hemoglobin and carboxyhemoglobin is mildly decreased and normalizes when adjusted for alveolar volume. In comparison to previous pulmonary function testing on 01/06/2023 there is a greater than anticipated time dependent decrease in the total lung capacity, functional residual capacity and residual volume. There is no significant change in the FVC, FEV1 or diffusing capacity. Clinical correlation is recommended.
--- NOTE | 2024-01-31 14:02 | WPDSIXMINUTE ---
Six Minute Walk Procedure Procedure Performed Pulmonary Stress Test (6 min walk) Six Minute Walk Six Minute Walk: This is a 6 minute walk test. The test was performed and interpreted in accordance with the 2014 ERS/ATS task force guidelines. Findings: The patient's resting room air oxygen saturation measured by pulse oximetry was 99% and heart rate was 80 bpm. Patient ambulated for 274 meters and oxygen saturation remained 95 to 98%. Heart rate at the end of the study was 95 bpm. The patient did not qualify for supplemental oxygen at rest or with ambulation. There are no prior studies for comparison.
== END 2024-01-31 09:28 | disposition home or self-care (01) ==
PROVIDERS: PCP Family Medicine; Visit Provider Physician Assistant
DX: J84.9 Interstitial pulmonary disease, unspecified (principal); R94.2 Abnormal results of pulmonary function studies
CPT/HCPCS: 94060; 94618; 94726; 94729

== ENCOUNTER 2024-01-31 09:29 | Outpatient (CLI) | payer MEDICARE, SELFPAY ==
--- NOTE | ~2024-01-31 | CT_ITS ---
EXAMINATION:CT chest high resolution wo id DATE: 01/31/2024 11:35 INDICATION: Interstitial pulmonary disease. TECHNIQUE: Computed tomography (CT) of the chest was performed without intravenous contrast. Automate d exposure control and iterative reconstruction technique were employed. The dose-length product (DLP ) was 194.04 mGy-cm. COMPARISON: Chest CT 01/06/2023 FINDINGS: There is widespread peripheral septal thickening in the lungs with a lower lung predominanc e. There is mild bronchiectasis with a lower lung predominance. No honeycombing. No pleural effusion. The heart size is normal. There are coronary artery calcifications. No pericardial effusion. There i s a large sliding hiatal hernia. Calcifications in the liver and spleen are consistent with old granu lomatous disease. There is kyphosis of thoracic spine. There is moderate thoracic spondylosis. There is a hemangioma in T6 vertebral body. IMPRESSION: 1. Stable chronic interstitial lung disease in a pattern of nonspecific interstitial pneumonia (NSIP) versus usual interstitial pneumonia (UIP). 2. Large sliding hiatal hernia. Reviewed, dictated and finalized at location A. IMPRESSION: 1. Stable chronic interstitial lung disease in a pattern of nonspecific interst itial pneumonia (NSIP) versus usual interstitial pneumonia (UIP). 2. Large sliding hiatal hernia.
== END 2024-01-31 09:30 | disposition home or self-care (01) ==
PROVIDERS: PCP Family Medicine; Visit Provider Physician Assistant
DX: J84.9 Interstitial pulmonary disease, unspecified (principal); K44.9 Diaphragmatic hernia without obstruction or gangrene
CPT/HCPCS: 71250; 94060; 94618; 94726; 94729

== ENCOUNTER 2024-02-22 09:39 | Outpatient (CLI) | payer MEDICARE, SELFPAY ==
--- NOTE | ~2024-02-22 | NM_ITS ---
EXAMINATION: NM ani stress w perfusion DATE: 02/22/2024 12:07 INDICATION: Chest pain. Other forms of dyspnea. TECHNIQUE: Rest images were obtained following intravenous administration of 10.5 mCi Tc99m tetrofosm in (Myoview). The patient was infused intravenously with Lexiscan (Regadenoson). Then, 33 mCi Tc99m t etrofosmin (Myoview) was administered intravenously, and stress images were obtained initially in the supine position. Additional repeat post stress images were obtained in the prone position. Data was reconstructed into short axis and horizontal and vertical long axis SPECT images. Gated SPECT images were also obtained. COMPARISON: None. FINDINGS: There is likely breast attenuation artifact at the anterior and lateral lozada on the imagin g obtained in the supine position which normalizes on the post stress imaging obtained in the prone p osition where there are no evident perfusion defects. There is normal left ventricular chamber size, wall motion and ejection fraction. Left ventricular ejection fraction measures >70%. IMPRESSION: 1. Normal myocardial perfusion during stress. 2. Left ventricular ejection fraction measuring >70%. Reviewed, dictated and finalized at location A.
--- NOTE | 2024-02-22 10:10 | EST_ITS ---
Patient Info Name: Elke Pink Age: 68 years : 1955 Gender: Female Ht: 61 in Wt: 160 lbs BSA: 1.79 m2 HR: 75 bpm BP: 183 / 88 mmHg Exam Date: 02/22/2024 11:06 AM Exam Location: [facility] Patient Status: Outpatient Admit Date: 02/22/2024 Staff Ordering Physician: Margarita Caballero PA-C Attending Provider: Margarita Caballero PA-C Exercise Technologist: Conchis Martinez CT Exercise Physician: Jason Bravo DO Exam Type: CA stress ani w NM Summary 1. 1. Negative lexiscan stress test for ischemic ST changes by ECG criteria. 2. 2. Baseline hypertension. 3. 3. Nuclear scan to follow and will be reported separately. Please correlate with it. 4. 4. Patient informed of the above results. Protocol: Lexiscan Stress ECG Details Stage: REST Duration (min): 1 min : 59 sec HR (bpm): 74 SBP (mmHg): 183 DBP (mmHg): 88 Stage: REST Duration (min): 6 min : 43 sec HR (bpm): 73 SBP (mmHg): 183 DBP (mmHg): 88 Stage: STAGE 1 Duration (min): 1 min : 0 sec HR (bpm): 87 SBP (mmHg): 183 DBP (mmHg): 88 Stage: RECOVERY Duration (min): 1 min : 0 sec HR (bpm): 92 SBP (mmHg): 171 DBP (mmHg): 78 Stage: RECOVERY Duration (min): 2 min : 0 sec HR (bpm): 87 SBP (mmHg): 171 DBP (mmHg): 78 Stage: RECOVERY Duration (min): 3 min : 0 sec HR (bpm): 83 SBP (mmHg): 169 DBP (mmHg): 84 Stage: RECOVERY Duration (min): 4 min : 0 sec HR (bpm): 80 SBP (mmHg): 169 DBP (mmHg): 84 Stage: RECOVERY Duration (min): 4 min : 50 sec HR (bpm): 78 SBP (mmHg): 162 DBP (mmHg): 86 Rest HR: 73 bpm Peak HR: 96 bpm Rest Sys BP: 183 mmHg Peak Sys BP: 171 mmHg Max Pred HR: 154 bpm % Max Pred HR: 62 % Target HR: 131 bpm Max RPP: 16,416 bpm*mmHg Termination Reason: Completed protocol Cardiac Symptoms: Shortness of breath, Exhaustion Total Time: 1 min : 0 sec Rest Skelton BP: 88 mmHg Peak [place] BP: 78 mmHg Total Dose: 0.4 mg Resting ECG Sinus rhythm. Stress ECG No ST changes. Amionophylline 100 mg IVx1 given for intolerable symptoms about 5 minutes after Lexiscan injection. Arrhythmias None. Report Signatures
== END 2024-02-22 09:40 | disposition home or self-care (01) ==
PROVIDERS: PCP Family Medicine; Visit Provider Physician Assistant Medical
DX: R07.9 Chest pain, unspecified (principal); R06.09 Other forms of dyspnea; I10 Essential (primary) hypertension
CPT/HCPCS: 78452; 93017; A9502; J0280; J2785

== ENCOUNTER 2024-03-30 04:36 | Day surgery (SDC) | payer MEDICARE, SELFPAY ==
[2024-03-19 13:20] VITALS: BMI 31.0
--- NOTE | 2024-03-29 09:27 | WPDANESEPPF ---
Anes - Initial Pre Proc Eval Procedure: Operation Date: 03/30/24 08:00 Proposed Procedures p Esophagogastroduodenoscopy - Wil Olivares MD Date/Time: 03/29/24 09:27 Surgeon: Wil Olivares MD Pre Op Diagnosis: Mae's esophagus w/o dysplasia Patient Data Age: 68 Gender: F Height: 1.55 m Weight: 74.5 kg Allergies Allergy/AdvReac Type Severity Reaction Status Date / Time semaglutide [From Ozempic] AdvReac Intermediate kidney Verified 03/30/24 06:44 failure nitrofurantoin AdvReac Chills Verified 03/30/24 06:44 [From Macrobid] Home Medications Medication Instructions Recorded Confirmed Type lancets 33 gauge #400 ea 07/23/20 03/19/24 Rx cholecalciferol (vitamin D3) 10 10 mcg PO DAILY 11/12/20 03/30/24 History mcg (400 unit) capsule vitamin B complex (B 1 tablet PO DAILY 11/12/20 03/19/24 History Complex-Vitamin B12 tablet) fluticasone propionate 50 2 spray intranasal QAM #9.9 mL 07/15/21 03/30/24 Rx mcg/actuation nasal spray,suspension flash glucose sensor (FreeStyle #6 ea 05/18/22 03/19/24 Rx Allison 2 Sensor kit) turmeric 400 mg capsule 400 mg PO DAILY 02/10/23 03/30/24 History valsartan 80 mg tablet 80 mg PO DAILY #90 tabs 05/10/23 03/30/24 Rx pantoprazole 40 mg tablet,delayed See Rx Instructions .Route 07/31/23 03/30/24 Rx release .COMPLEX #200 tabs metformin 500 mg tablet,extended 500 mg PO .COMPLEX #270 tabs 09/07/23 03/30/24 Rx release 24 hr amlodipine 2.5 mg tablet See Rx Instructions .Route 10/08/23 03/30/24 Rx .COMPLEX #100 tabs atorvastatin 40 mg tablet See Rx Instructions .Route 11/22/23 03/30/24 Rx .COMPLEX #100 tabs gabapentin 600 mg tablet 1,200 mg PO BID #360 tabs 12/08/23 03/30/24 Rx insulin glargine 100 unit/mL (3 30 unit (0.3 mL) subcut DAILY #30 12/08/23 03/30/24 Rx mL) subcutaneous pen (Lantus mL Solostar U-100 Insulin) blood sugar diagnostic (OneTouch #100 strips 01/11/24 03/19/24 Rx Verio test strips) sertraline 50 mg tablet 50 mg PO DAILY #90 tabs 02/08/24 03/30/24 Rx insulin lispro 100 unit/mL See Rx Instructions .Route 02/21/24 03/30/24 Rx subcutaneous pen (Humalog KwikPen .COMPLEX #135 mL (U-100) Insulin) methimazole 5 mg tablet See Rx Instructions .Route 03/12/24 03/30/24 Rx .COMPLEX #50 tabs Patient hx anesthesia problems: none Family hx anesthesia problems: none Results Review: All pre-operative results and documents have been reviewed as part of the pre-operative evaluation. [facility] Past Medical History Medical History Barretts esophagus Chronic anemia Colon cancer screening Degenerative joint disease of knee Depression Diabetes Frequent UTI GERD (gastroesophageal reflux disease) Hiatal hernia HLD (hyperlipidemia) Hypercholesterolemia Hypertension Hypomagnesemia Long-term insulin use Mitral valve prolapse Nausea and vomiting Peripheral neuropathy Subclinical hyperthyroidism Type 2 diabetes mellitus with peripheral neuropathy Surgical History Surgical History History of arthroscopy of both knees History of foot surgery History of foot surgery ORIF left foot fracture. Family History Family History Grandparent Family history of cardiovascular disease Diabetes mellitus Mother Hypertension Chronic obstructive pulmonary disease Other Depression Family history of blood dyscrasia Family history of cataracts Family history of glaucoma Family history of hearing loss Family history of kidney disease Family history of malignant neoplasm Family history of mental disorder Family history of obesity Social History Social History Social History: The patient is and lives with her in [place]. She smoked remotely in the late 1970s to
[2024-03-30 06:51] VITALS: BP 131/79; PULSE 93; RESP 20; TEMP 36.2; O2SAT 98
[2024-03-30] MEDS: LACTATED RINGERS 1,000 ML 150 ML IV CONT (07:08)
[2024-03-30 07:12] LABS: Glucose Point of Care 137 mg/dl (65-105)
--- NOTE | 2024-03-30 08:25 | SUR.PREOP ---
Pt. states her blood sugar was 68 this morning at 0400. She ate 2 small pieces of chocolate and rechecked blood sugar was 120. Dr. Ram and Dr. Olivares notified and they spoke to the pt. The plan is to delay the case for later this morning per doctors orders. Pt. verbalized understandin, call light in reach, side rail up x1, Will continue to monitor.
--- NOTE | 2024-03-30 09:10 | PM.IMHP ---
H&P: HPI History of Present Illness Date/Time: 03/30/24 09:10 Chief Complaint: The patient has a history of Mae's esophagus. He she comes today for surveillance EGD and biopsies. There are no new symptoms. Review of Systems Review of Systems: All systems reviewed & are unremarkable except as noted in HPI and below [facility] Past Medical History Medical History Barretts esophagus Chronic anemia Colon cancer screening Degenerative joint disease of knee Depression Diabetes Frequent UTI GERD (gastroesophageal reflux disease) Hiatal hernia HLD (hyperlipidemia) Hypercholesterolemia Hypertension Hypomagnesemia Long-term insulin use Mitral valve prolapse Nausea and vomiting Peripheral neuropathy Subclinical hyperthyroidism Type 2 diabetes mellitus with peripheral neuropathy Surgical History Surgical History History of arthroscopy of both knees History of foot surgery History of foot surgery ORIF left foot fracture. Family History Family History Grandparent Family history of cardiovascular disease Diabetes mellitus Mother Hypertension Chronic obstructive pulmonary disease Other Depression Family history of blood dyscrasia Family history of cataracts Family history of glaucoma Family history of hearing loss Family history of kidney disease Family history of malignant neoplasm Family history of mental disorder Family history of obesity Social History Social History Social History: The patient is and lives with her in [place]. She smoked remotely in the late 1970s to the early 80s. She denies alcohol and drug abuse. She designates her , Manjinder, as her surrogate decision maker and she wishes to be a full code. Years smoked: 2 Smoking status: Former smoker Tobacco type: cigarettes Second hand tobacco smoke exposure: Yes Smoking end date: 02/25/82 Alcohol intake: former Alcohol use details: none in 10 years Substance use: never Substance use type: does not use Do You Feel Safe in your Home?: Yes Lack of Transportation: No Lack of Food: Never True Current Housing: I Have Housing Concerned About Future Housing: No Difficulty Paying Gas/Electric Bills: No Difficulty Paying for Meds: YES Currently Unemployed: No Education: High School Diploma/GED Difficulty w/ Childcare or Family Care: No Living arrangements: with family Occupation/Education: other Gender identity (if verbalized by the patient): Female Spiritual care concerns: No Agree to blood products: No Meds Home Medications and Allergies Home Medications Medication Instructions Recorded Confirmed Type lancets 33 gauge #400 ea 07/23/20 03/19/24 Rx cholecalciferol (vitamin D3) 10 10 mcg PO DAILY 11/12/20 03/30/24 History mcg (400 unit) capsule vitamin B complex (B 1 tablet PO DAILY 11/12/20 03/19/24 History Complex-Vitamin B12 tablet) fluticasone propionate 50 2 spray intranasal QAM #9.9 mL 07/15/21 03/30/24 Rx mcg/actuation nasal spray,suspension flash glucose sensor (FreeStyle #6 ea 05/18/22 03/19/24 Rx Allison 2 Sensor kit) turmeric 400 mg capsule 400 mg PO DAILY 02/10/23 03/30/24 History valsartan 80 mg tablet 80 mg PO DAILY #90 tabs 05/10/23 03/30/24 Rx pantoprazole 40 mg tablet,delayed See Rx Instructions .Route 07/31/23 03/30/24 Rx release .COMPLEX #200 tabs metformin 500 mg tablet,extended 500 mg PO .COMPLEX #270 tabs 09/07/23 03/30/24 Rx release 24 hr amlodipine 2.5 mg tablet See Rx Instructions .Route 10/08/23 03/30/24 Rx .COMPLEX #100 tabs atorvastatin 40 mg tablet See Rx Instructions .Route 11/22/23 03/30/24 Rx .COMPLEX #100 tabs gabapentin 600 mg tablet 1,200 mg PO BID #360 tabs 12/08/23 10
--- NOTE | 2024-03-30 09:14 | PM.IMHP ---
H&P: HPI History of Present Illness Date/Time: 03/30/24 09:14 Chief Complaint: Mae's esophagus, for surveillance EGD [facility] Past Medical History Medical History Barretts esophagus Chronic anemia Colon cancer screening Degenerative joint disease of knee Depression Diabetes Frequent UTI GERD (gastroesophageal reflux disease) Hiatal hernia HLD (hyperlipidemia) Hypercholesterolemia Hypertension Hypomagnesemia Long-term insulin use Mitral valve prolapse Nausea and vomiting Peripheral neuropathy Subclinical hyperthyroidism Type 2 diabetes mellitus with peripheral neuropathy Surgical History Surgical History History of arthroscopy of both knees History of foot surgery History of foot surgery ORIF left foot fracture. Family History Family History Grandparent Family history of cardiovascular disease Diabetes mellitus Mother Hypertension Chronic obstructive pulmonary disease Other Depression Family history of blood dyscrasia Family history of cataracts Family history of glaucoma Family history of hearing loss Family history of kidney disease Family history of malignant neoplasm Family history of mental disorder Family history of obesity Social History Social History Social History: The patient is and lives with her in [place]. She smoked remotely in the late 1970s to the early 80s. She denies alcohol and drug abuse. She designates her , Manjinder, as her surrogate decision maker and she wishes to be a full code. Years smoked: 2 Smoking status: Former smoker Tobacco type: cigarettes Second hand tobacco smoke exposure: Yes Smoking end date: 02/25/82 Alcohol intake: former Alcohol use details: none in 10 years Substance use: never Substance use type: does not use Do You Feel Safe in your Home?: Yes Lack of Transportation: No Lack of Food: Never True Current Housing: I Have Housing Concerned About Future Housing: No Difficulty Paying Gas/Electric Bills: No Difficulty Paying for Meds: YES Currently Unemployed: No Education: High School Diploma/GED Difficulty w/ Childcare or Family Care: No Living arrangements: with family Occupation/Education: other Gender identity (if verbalized by the patient): Female Spiritual care concerns: No Agree to blood products: No Meds Home Medications and Allergies Home Medications Medication Instructions Recorded Confirmed Type lancets 33 gauge #400 ea 07/23/20 03/19/24 Rx cholecalciferol (vitamin D3) 10 10 mcg PO DAILY 11/12/20 03/30/24 History mcg (400 unit) capsule vitamin B complex (B 1 tablet PO DAILY 11/12/20 03/19/24 History Complex-Vitamin B12 tablet) fluticasone propionate 50 2 spray intranasal QAM #9.9 mL 07/15/21 03/30/24 Rx mcg/actuation nasal spray,suspension flash glucose sensor (FreeStyle #6 ea 05/18/22 03/19/24 Rx Allison 2 Sensor kit) turmeric 400 mg capsule 400 mg PO DAILY 02/10/23 03/30/24 History valsartan 80 mg tablet 80 mg PO DAILY #90 tabs 05/10/23 03/30/24 Rx pantoprazole 40 mg tablet,delayed See Rx Instructions .Route 07/31/23 03/30/24 Rx release .COMPLEX #200 tabs metformin 500 mg tablet,extended 500 mg PO .COMPLEX #270 tabs 09/07/23 03/30/24 Rx release 24 hr amlodipine 2.5 mg tablet See Rx Instructions .Route 10/08/23 03/30/24 Rx .COMPLEX #100 tabs atorvastatin 40 mg tablet See Rx Instructions .Route 11/22/23 03/30/24 Rx .COMPLEX #100 tabs gabapentin 600 mg tablet 1,200 mg PO BID #360 tabs 12/08/23 03/30/24 Rx insulin glargine 100 unit/mL (3 30 unit (0.3 mL) subcut DAILY #30 12/08/23 03/30/24 Rx mL) subcutaneous pen (Lantus mL Solostar U-100 Insulin) blood sugar diagnostic (OneTouch #100 strips 07
[2024-03-30 09:49] VITALS: BP 119/77; PULSE 65; RESP 20; O2SAT 100
[2024-03-30 09:59] VITALS: BP 144/71; PULSE 69; RESP 16; O2SAT 100
[2024-03-30 10:09] VITALS: BP 152/82; PULSE 68; RESP 22; O2SAT 100
--- NOTE | 2024-03-30 10:24 | SUR.PHASEII ---
Blood sugar 143 per pt dexcom reader.
== END 2024-03-30 10:25 | disposition home or self-care (01) ==
PROVIDERS: PCP Family Medicine; Referring Provider Internal Medicine Gastroenterology; Visit Provider Internal Medicine Gastroenterology
PROC: 0DJ08ZZ Inspection of Upper Intestinal Tract, Via Natural or Artificial Opening Endoscopic (ICD-10-PCS; CPT 43235; principal; 2024-03-30 08:00)
DX: K22.70 Barrett's esophagus without dysplasia (principal); K44.9 Diaphragmatic hernia without obstruction or gangrene; K31.7 Polyp of stomach and duodenum; K21.00 Gastro-esophageal reflux disease with esophagitis, without bleeding; K31.A14 Gastric intestinal metaplasia without dysplasia, involving the cardia; I10 Essential (primary) hypertension; E11.42 Type 2 diabetes mellitus with diabetic polyneuropathy; E78.00 Pure hypercholesterolemia, unspecified; E21.3 Hyperparathyroidism, unspecified; F32.A Depression, unspecified; I34.1 Nonrheumatic mitral (valve) prolapse; Z87.891 Personal history of nicotine dependence; E66.9 Obesity, unspecified; Z68.31 Body mass index [BMI] 31.0-31.9, adult; Z79.84 Long term (current) use of oral hypoglycemic drugs; Z79.4 Long term (current) use of insulin
CPT/HCPCS: 43239; 82948; 88305; J2003; J2704; J7120

== ENCOUNTER 2024-07-17 00:42 | Day surgery (SDC) | payer MEDICARE, SELFPAY ==
[2024-07-03 09:44] VITALS: BMI 30.2
--- NOTE | 2024-07-16 15:02 | WPDANESEPPF ---
Anes - Initial Pre Proc Eval Procedure: Operation Date: 07/17/24 09:00 Proposed Procedures p Colonoscopy - Andrea Roe MD Date/Time: 07/16/24 15:02 Surgeon: Andrea Roe MD Pre Op Diagnosis: fecal abnormalities Patient Data Age: 68 Gender: F Height: 1.55 m Weight: 72.6 kg Allergies Allergy/AdvReac Type Severity Reaction Status Date / Time semaglutide (From Ozempic) AdvReac Intermediate kidney Verified 07/17/24 07:49 failure nitrofurantoin (From AdvReac Chills Verified 07/17/24 07:49 Macrobid) Home Medications ?Medication ?Instructions ?Recorded ?Confirmed ?Type lancets 33 gauge #400 ea 07/23/20 07/10/24 Rx cholecalciferol (vitamin D3) 10 10 mcg PO DAILY 11/12/20 07/17/24 History mcg (400 unit) capsule vitamin B complex (B 1 tablet PO DAILY 11/12/20 07/17/24 History Complex-Vitamin B12 tablet) fluticasone propionate 50 2 spray intranasal QAM #9.9 mL 07/15/21 07/17/24 Rx mcg/actuation nasal spray,suspension flash glucose sensor (FreeStyle #6 ea 05/18/22 07/10/24 Rx Allison 2 Sensor kit) turmeric 400 mg capsule 400 mg PO DAILY 02/10/23 07/10/24 History valsartan 80 mg tablet 80 mg PO DAILY #90 tabs 05/10/23 07/17/24 Rx blood sugar diagnostic (OneTouch #100 strips 01/11/24 07/10/24 Rx Verio test strips) sertraline 50 mg tablet 50 mg PO DAILY #90 tabs 02/08/24 07/17/24 Rx insulin lispro 100 unit/mL See Rx Instructions .Route 02/21/24 07/17/24 Rx subcutaneous pen (Humalog KwikPen .COMPLEX #135 mL (U-100) Insulin) methimazole 5 mg tablet See Rx Instructions .Route 03/12/24 07/17/24 Rx .COMPLEX #50 tabs metformin 500 mg tablet,extended 500 mg PO .COMPLEX #270 tabs 05/15/24 07/17/24 Rx release 24 hr pantoprazole 40 mg tablet,delayed See Rx Instructions .Route 07/02/24 07/17/24 Rx release .COMPLEX #200 tabs amlodipine 2.5 mg tablet See Rx Instructions .Route 07/09/24 07/17/24 Rx .COMPLEX #100 tabs gabapentin 600 mg tablet 1,200 mg (2 x 600 mg) PO BID #360 07/10/24 07/17/24 Rx tabs glucagon 1 mg/0.2 mL subcutaneous 1 mg (0.2 mL) subcut ONCE #0.4 mL 07/10/24 07/17/24 Rx auto-injector (Gvoke HypoPen 2-Pack) glucose 4 gram chewable tablet 16 g (4 x 4 gram) PO Q15M PRN 07/10/24 07/17/24 Rx (Dex4 Glucose) hypoglycemia #60 tabs insulin glargine 100 unit/mL (3 28 unit (0.28 mL) subcut DAILY #30 07/10/24 07/17/24 Rx mL) subcutaneous pen (Lantus mL Solostar U-100 Insulin) atorvastatin 40 mg tablet See Rx Instructions .Route 07/16/24 07/17/24 Rx .COMPLEX #100 tabs Patient hx anesthesia problems: none Family hx anesthesia problems: none Results Review: All pre-operative results and documents have been reviewed as part of the pre-operative evaluation. [facility] Past Medical History Medical History Degenerative joint disease of knee HLD (hyperlipidemia) Frequent UTI Subclinical hyperthyroidism Colon cancer screening Long-term insulin use Chronic anemia Hypertension Type 2 diabetes mellitus with peripheral neuropathy Barretts esophagus Nausea and vomiting Hypomagnesemia Depression Diabetes Hiatal hernia GERD (gastroesophageal reflux disease) Hypercholesterolemia Mitral valve prolapse Peripheral neuropathy Surgical History Surgical History History of foot surgery ORIF left foot fracture. History of foot surgery History of arthroscopy of both knees Family History Family History Grandparent Family history of cardiovascular disease Diabetes mellitus Mother Hypertension Chronic obstructive pulmonary disease Other Depression Family history of blood dyscrasia Family history of cataracts Family history of glaucoma Family history of hearing loss Family history of kidney disease Family history of malignant neoplasm Family history of mental disorder Family history of obesity Social History Social History Social History: The patient is and lives with her in [place]. She smoked remotely in the late 1970s to the early 80s. She denies alcohol and drug abuse. She designates her , Manjinder, as her surrogate decision maker and she wishes to be a full code. Years smoked: 2 Smoking status: Never smoker Tobacco type: cigarettes Second hand tobacco smoke exposure: Yes Smoking end date: 02/25/82 Alcohol intake: former Alcohol use details: none in 10 years Substance use: never Substance use type: does not use Do You Feel Safe in your Home?: Yes Lack of Transportation: No Lack of Food: Never True Current Housing: I Have Housing Concerned About Future Housing: No Difficulty Paying Gas/Electric Bills: No Difficulty Paying for Meds: YES Currently Unemployed: No Education: High School Diploma/GED Difficulty w/ Childcare or Family Care: No Living arrangements: with family Occupation/Education: other Gender identity (if verbalized by the patient): Female Spiritual care concerns: No Agree to blood products: No Anes - Eval Final PreProcedure Day of Procedure 07/16/24 15:02 Patient weight: overweight Heart: regular rate and rhythm Lungs: clear to auscultation Airway: Mallampati scale class II Neurological: alert and oriented Last oral intake: >/= 8 hours ASA classification: III Emergent: no Anesthetic plan: proceed Anesthesia type and monitoring: general GIVS and standard monitoring Results Review: All pre-operative results and documents have been reviewed as part of the pre-operative evaluation. Informed Consent: The patient's anesthetic plan and its attendant risks and benefits were discussed with the patient/family/POA. Questions were solicited and answers provided to the satisfaction of the patient/family/POA.
[2024-07-17] MEDS: LACTATED RINGERS 1,000 ML 150 ML IV CONT (08:00)
[2024-07-17 08:01] VITALS: BP 135/78; PULSE 91; RESP 16; TEMP 36.1; O2SAT 100
--- NOTE | 2024-07-17 08:01 | SUR.PREOP ---
Patient's blood sugar on continuous glucose monitor was 125.
--- NOTE | 2024-07-17 08:38 | PM.HPGS ---
History of Present Illness History of Present Illness Consent: Risks, benefits, and alternatives have been discussed and questions answered. Patient agrees to proceed with procedure. Chief complaint: fecal abnormalities Narrative: Elke Pink is a 68 year old female here for + cologuard, had colonoscopy but years ago Review of Systems Review of Systems: All systems reviewed & are unremarkable except as noted in HPI and below PMFSH Past Medical History Medical History (Updated 07/17/24 @ 08:39 by Andrea Roe MD) Positive colorectal cancer screening using Cologuard test Degenerative joint disease of knee HLD (hyperlipidemia) Frequent UTI Subclinical hyperthyroidism Colon cancer screening Long-term insulin use Chronic anemia Hypertension Type 2 diabetes mellitus with peripheral neuropathy Barretts esophagus Nausea and vomiting Hypomagnesemia Depression Diabetes Hiatal hernia GERD (gastroesophageal reflux disease) Hypercholesterolemia Mitral valve prolapse Peripheral neuropathy Surgical History Surgical History History of foot surgery ORIF left foot fracture. History of foot surgery History of arthroscopy of both knees Family History Family History Grandparent Family history of cardiovascular disease Diabetes mellitus Mother Hypertension Chronic obstructive pulmonary disease Other Depression Family history of blood dyscrasia Family history of cataracts Family history of glaucoma Family history of hearing loss Family history of kidney disease Family history of malignant neoplasm Family history of mental disorder Family history of obesity Social History Social History Social History: The patient is and lives with her in [place]. She smoked remotely in the late 1970s to the early 80s. She denies alcohol and drug abuse. She designates her , Manjinder, as her surrogate decision maker and she wishes to be a full code. Years smoked: 2 Smoking status: Never smoker Tobacco type: cigarettes Second hand tobacco smoke exposure: Yes Smoking end date: 02/25/82 Alcohol intake: former Alcohol use details: none in 10 years Substance use: never Substance use type: does not use Do You Feel Safe in your Home?: Yes Lack of Transportation: No Lack of Food: Never True Current Housing: I Have Housing Concerned About Future Housing: No Difficulty Paying Gas/Electric Bills: No Difficulty Paying for Meds: YES Currently Unemployed: No Education: High School Diploma/GED Difficulty w/ Childcare or Family Care: No Living arrangements: with family Occupation/Education: other Gender identity (if verbalized by the patient): Female Spiritual care concerns: No Agree to blood products: No Meds Home Medications and Allergies Home Medications ?Medication ?Instructions ?Recorded ?Confirmed ?Type lancets 33 gauge #400 ea 07/23/20 07/10/24 Rx cholecalciferol (vitamin D3) 10 10 mcg PO DAILY 11/12/20 07/17/24 History mcg (400 unit) capsule vitamin B complex (B 1 tablet PO DAILY 11/12/20 07/17/24 History Complex-Vitamin B12 tablet) fluticasone propionate 50 2 spray intranasal QAM #9.9 mL 07/15/21 07/17/24 Rx mcg/actuation nasal spray,suspension flash glucose sensor (FreeStyle #6 ea 05/18/22 07/10/24 Rx Allison 2 Sensor kit) turmeric 400 mg capsule 400 mg PO DAILY 02/10/23 07/10/24 History valsartan 80 mg tablet 80 mg PO DAILY #90 tabs 05/10/23 07/17/24 Rx blood sugar diagnostic (OneTouch #100 strips 01/11/24 07/10/24 Rx Verio test strips) sertraline 50 mg tablet 50 mg PO DAILY #90 tabs 02/08/24 07/17/24 Rx insulin lispro 100 unit/mL See Rx Instructions .Route 02/21/24 07/17/24 Rx subcutaneous pen (Humalog KwikPen .COMPLEX #135 mL (U-100) Insulin) methimazole 5 mg tablet See Rx Instructions .Route 03/12/24 07/17/24 Rx .COMPLEX #50 tabs metformin 500 mg tablet,extended 500 mg PO .COMPLEX #270 tabs 05/15/24 07/17/24 Rx release 24 hr pantoprazole 40 mg tablet,delayed See Rx Instructions .Route 07/02/24 07/17/24 Rx release .COMPLEX #200 tabs amlodipine 2.5 mg tablet See Rx Instructions .Route 07/09/24 07/17/24 Rx .COMPLEX #100 tabs gabapentin 600 mg tablet 1,200 mg (2 x 600 mg) PO BID #360 07/10/24 07/17/24 Rx tabs glucagon 1 mg/0.2 mL subcutaneous 1 mg (0.2 mL) subcut ONCE #0.4 mL 07/10/24 07/17/24 Rx auto-injector (Gvoke HypoPen 2-Pack) glucose 4 gram chewable tablet 16 g (4 x 4 gram) PO Q15M PRN 07/10/24 07/17/24 Rx (Dex4 Glucose) hypoglycemia #60 tabs insulin glargine 100 unit/mL (3 28 unit (0.28 mL) subcut DAILY #30 07/10/24 07/17/24 Rx mL) subcutaneous pen (Lantus mL Solostar U-100 Insulin) atorvastatin 40 mg tablet See Rx Instructions .Route 07/16/24 07/17/24 Rx .COMPLEX #100 tabs Allergies Allergy/AdvReac Type Severity Reaction Status Date / Time semaglutide (From Ozempic) AdvReac Intermediate kidney Verified 07/17/24 07:49 failure nitrofurantoin (From AdvReac Chills Verified 07/17/24 07:49 Macrobid) Vital Signs Vital Signs - 24 hr 07/17/24 08:01 Temperature 96.9 F L Pulse Rate 91 Respiratory Rate 16 Blood Pressure 135/78 Pulse Oximetry 100 Oxygen Delivery Room Air Exam Const: General: comfortable and no acute distress HENMT: Face/Nose/Sinus: Normal nares present Eyes: General: appearance normal, both eyes and all related structures Neck: Neck: no JVD Resp: Auscultation: clear to auscultation bilaterally Cardio: Rate: regular rate Rhythm: regular rhythm GI: Inspection: non-distended GI Palp: Yes Soft to palpation Skin: General skin exam: normal color Neuro: Speech: normal speech Extrem: General: normal to inspection Psych: Mental Status: mental status grossly normal Assessment and Plan Assessment and plan (1) Positive colorectal cancer screening using Cologuard test: Code(s): R19.5 - Other fecal abnormalities Status: Acute Assessment and Plan: cologuard
[2024-07-17 08:59] VITALS: BP 115/62; PULSE 67; RESP 14; O2SAT 100
[2024-07-17 09:09] VITALS: BP 113/59; PULSE 66; RESP 17; O2SAT 100
[2024-07-17 09:19] VITALS: BP 126/71; PULSE 75; RESP 21; O2SAT 100
--- NOTE | 2024-07-17 10:38 | SUR.OPER ---
At 09:15 the patients FreeStyle Allison continuous glucose monitoring (CGM) showed 93.
--- OUTSIDE RECORDS SUMMARY | 2024-07-19 15:13 | XMS_ITS | Clinical Summary ---
Author Organization [facility] Address [address] [place] [address] Care Team Providers Care Etl Architect Name Role Phone Unavailable Primary Care Provider Unavailabl e Source Comments [facility],non-owned Affiliates and Associated Physician Practices is amultiple site organization consisting of ambulatory clinics and hospital sitesin [place], [place] and [place]. This disclosure is being madepursuant to the Care Everywhere program and may not contain all information available regarding this patient. Last updated 18.[facility] [employer] Social History Tobacco Use Types Packs/Day Years Used Date Smoking Tobacco: Never Assessed Sex and Gender Information Value Date Recorded Sex Assigned at Not on file Gender Identity Not on file Sexual Orientation Not on file Plan of Treatment Health Maintenance Due Date Last Done Comments BONE DENSITY TESTING 1955 COLOGUARD (AGES 45-75) - COL ON CA SCREENING 1955 COLON MONITORING 1955 COLONOSCOPY - COLON CA SCREENING 1955 CT COLONOGRAPHY - COLON CA SCREENING 1955 Colorectal Cancer Screening 1955 FIT - COLON CA SCREENING 1955 FLEX SIG - COLON CA SCREENING 1955 LIPID TESTING 1955 MAMMOGRAM 1955 HEPATITIS C SCREENING 10/22/1975 DTAP/TDAP/TD VACCINES (1 - Tdap) 1976 PNEUMOCOCCAL VACCINE 50+ (1 of 1 - PCV) 10/27/2007 ZOSTER VACCINE (1 of 2) 10/27/2007 COVID-19 VACCINE (2023-2 5 season) 2024 INFLUENZA VACCINE (#1) 2024 DEPRESSION SCREENING 06/27/2024 MEDICARE AWV ? CALENDAR YEAR 2024 Respiratory Syncytial Virus (RSV) Vaccine Pt: or over 60 yrs (1 - 1-dose 75+ series) 2032 HEPATITIS B VACCINE Aged Out No longe r eligible based on patient's age to complete this topic HIB VACCINE Aged Out No longer eligi ble based on patient's age to complete this topic HPV VACCINE Aged Out No longer eligi ble based on patient's age to complete this topic MENINGOCOCCAL (Group B) VACCINE Aged Out No longer eligible based on patient's age to complete this topic MENINGOCOCCAL VACCINE Aged Out No qing rose eligible based on patient's age to complete this topic
--- OUTSIDE RECORDS SUMMARY | 2024-07-19 15:13 | XMS_ITS | Continuity of Care Document ---
Author Organization [facility] Address [address] [place] [address] [place] [address] Phone Care Team Providers Care Trash Collector Name Role Phone Hugo Mora Unavailable Unavailable Procedures Procedure Date Office/outpatient Visit, [facility] Advance Directives Directive Yes / No Effective Date File Name No Information Encounters Encounter Description Practice Location Reason(s) For Visit Diagnoses Date Provider Providers Copied on Encounter Office/outpat ient Visit, [facility], [id number] [place] [address] [address], [place], [place], [id number], tel:[phone] [facility] No Information [address] Hugo. [address], [place], [address], [place]. tel:[phone] Family History Family Member Type Diagnosis Age At Onset No Information Payers Payer name Insurance type Covered democrat ID Authoriza tion(s) No Information Social History Type Description Quantity Date Captured Comments Sex Female Smoking Status No Information Chief Complaint And Reason For Visit No Information Reason For Referral Reason For Referral No Information History Of Present Illness Encounter Date Complaint History Of Prese nt Illness No Information Functional Status Date Functional Assessmen t No Information Instructions Date Instruction Additional Infor mation No Information Assessments Type Assessment Date No Information Patient Care Teams Name Effective Dates (start - stop) Status Members No Information
--- OUTSIDE RECORDS SUMMARY | 2024-07-19 15:13 | XMS_ITS | Clinical Summary ---
Author Organization [facility] [address] Address [address] [place] [address] Care Team Providers Care Manager Client Support Name Role Phone Felipe Hyde NP Primary Care Provider [phone] Allergies No known active allergies Medications gabapentin (NEURONTIN) 300 mg capsule Take 300 mg by mouth 3 (three) times a day Active metFORMIN (GLUCOPHAGE) 500 mg tablet Take 500 mg by mouth 3 (three) times a day with meals Active losartan (COZAAR) 100 mg tablet Take 100 mg by mouth daily Active aspirin 81 mg enteric coated tablet Take 81 mg by mouth daily Active esomeprazole DR (NexIUM) 20 mg capsule Take 20 mg by mouth daily before breakfast Active rosuvastatin (CRESTOR) 10 mg tablet Take 10 mg by mouth daily Active insulin lispro (HumaLOG) 100 unit/mL injection Inject 12 Units under the skin daily Active insulin degludec (TRESIBA FLEXTOUCH U-100) 100 unit/mL (3 mL) insulin pen Inject 80 Units under the skin Active amLODIPine (NORVASC) 10 mg tablet Take 1 tablet (10 mg total) by mouth daily 30 tablet 11 9 Active Active Problems No known active problems Surgical History Surgery Date Site/Laterality Comments SECTION REPLACEMENT TOTAL KNEE OVARIAN CYST REMOVAL Medical History Medical History Date Comments Hypertension Heart attack (HCC) Heart murmur Hyperlipidemia Diabetes mellitus (HCC) Obesity Acid indigestion Rheumatic fever Anxiety Depression Family History Medical History Relation Name Comments Cancer Father Relation Name Status Comments Father (Age 58) Mother Alive Social History Tobacco Use Types Packs/Day Years Used Date Smoking Tobacco: Never Smokeless Tobacco: Never Alcohol Use Standard Drinks/Week Comments No 0 (1 standard drink = 0.6 oz pur e alcohol) Personal Safety Answer Date Recorded Getting School Help Needed Not on file 09/08 Comments Unknown Sex and Gender Information Value Date Recorded Sex Assigned at Not on file Legal Sex Female 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 Gender Identity Not on file Sexual Orientation Not on file Obstetrics History Last Filed Vital Signs Vital Sign Reading Time Taken Comments Blood Pressure 138/84 12/13/2018 1:03 PM CDT Pulse 98 12/13/2018 1:03 PM CDT Temperature - - Respiratory Rate - - Oxygen Saturation 98% 12/13/2018 1:03 PM CDT Inhaled Oxygen Concentration - - Weight 85.7 kg (189 lb) 12/13/2018 1:03 PM CDT Height 154.9 cm (5' 1 ) 12/13/2018 1:03 PM CDT Body Mass Index 35.71 12/13/2018 1:03 PM CDT Plan of Treatment Not on file Insurance ANTH PREFERRED Care Teams Manager Client Support Relationship Specialty Start Date End Date Felipe Hyde NP PCP - General Internal Medicine 05/03/18
--- OUTSIDE RECORDS SUMMARY | 2024-07-19 15:13 | XMS_ITS | Referral Summary ---
Author Organization [facility] Address [address] [place] [address] Care Team Providers Care Docketing Specialist Name Role Phone Unavailable Primary Care Provider Unavailabl e Source Comments [facility],non-owned Affiliates and Associated Physician Practices is amultiple site organization consisting of ambulatory clinics and hospital sitesin [place], [place], [place]. This disclosure is being madepursuant to the Care Everywhere program and may not contain all information available regarding this patient. Last updated 18.[facility] Social History Tobacco Use Types Packs/Day Years Used Date Smoking Tobacco: Never Assessed Sex and Gender Information Value Date Recorded Sex Assigned at Not on file Gender Identity Not on file Sexual Orientation Not on file Plan of Treatment Not on file Elke Pink Personal/Family Self 1955 ([place]) [address] [place] [id number]
--- OUTSIDE RECORDS SUMMARY | 2024-07-19 15:13 | XMS_ITS | Patient Health Summary ---
Author Organization [facility] Address [address] [place] [address] Care Team Providers Care District Resource Officer Name Role Phone Unavailable Primary Care Provider Unavailabl e Note from [facility],non-owned Affiliates and Associated Physician Practices is amultiple site organization consisting of ambulatory clinics and hospital sitesin [place], [place], [place]. This disclosure is being madepursuant to the Care Everywhere program and may not contain all information available regarding this patient. Last updated 18.[facility] Social History Tobacco Use Types Packs/Day Years Used Date Smoking Tobacco: Never Assessed Sex and Gender Information Value Date Recorded Sex Assigned at Not on file Gender Identity Not on file Sexual Orientation Not on file Procedures * URINALYSIS REFLEX MICROSCOPIC REFLEX CULTURE(Performed 10/25/2011) * CULTURE URINE(Performed 10/25/2011) Results * (ABNORMAL) URINALYSIS ROUTINE W/REFLEX TO CULTURE (10/25/2011 11:16 AM CDT) Source Clean Catch [facility] Color UA Colorless [facility] Character UA Cloudy [facility] Glucose UA 100(H) NEGATIVE mg/dl [facility] Bilirubin UA NEGATIVE NEGATIVE [facility] Ketone UA NEGATIVE NEGATIVE mg/dl [facility] Specific Talent UA 1.015 1.003 - 1.030 [facility] Blood UA SMALL(H) NEGATIVE [facility] pH UA 5.5 5.0 - 9.0 [facility] Protein UA NEGATIVE NEGATIVE-TR RYNE mg/dl [facility] Urobilinogen UA 0.2 0.2 - 1.0 Benny Units/dl [facility] Nitrite UA NEGATIVE NEGATIVE [facility] Leukocyte UA MODERATE(H) NEGATIVE [facility] WBC UA Packed Field(H) 0 - 2 HPF [facility] RBC UA 15-25(H) None Seen HPF [facility] Epithelial Cell UA Squamous 4-5 None Seen HPF [facility] Bacteria UA Many(H) None Seen [facility] Urine Culture Reflexed to culture [facility] URINE SPECIMEN OBTAINED BY CLEAN CATCH PROCEDURE / Unknown 10/25/2011 11:16 AM CDT 10/25/2011 11:16 AM CDT Moreno Duran MD LAB - URINALYSIS ORD ERABLES Performing Organization Address City/State/[facility] Co de Phone Number [facility] [address] [place] [address] * CULTURE URINE (10/25/2011 11:16 AM CDT) Result [facility] Comment: Final CULTURE ESCHERICHIA COLI ??>100,000 cfu/mL ??Automated Pip/tazo results not ? available. Call [facility] ? if needed at [phone]. ??Amikacin ?SUGEY ?Susceptible ?<=2 ?? ug/ml ??Amp/Sulbactam ? SUGEY ?Susceptible ?<=2 ?? ug/ml ??Ampicillin ?SUGEY ?Susceptible ?<=2 ?? ug/ml ??Cefazolin ? SUGEY ?Susceptible ?<=4 ?? ug/ml ??Cefepime ?SUGEY ?Susceptible ?<=1 ?? ug/ml ??Ceftriaxone ? SUGEY ?Susceptible ?<=1 ?? ug/ml ??Ciprofloxacin ? SUGEY ?Susceptible <=0.25 ?? ug/ml ??ESBL ?SUGEY ?Neg ??ug/ml ??Gentamicin ?SUGEY ?Susceptible ?<=1 ?? ug/ml ??Imipenem ?SUGEY ?Susceptible ?<=1 ?? ug/ml ??Levofloxacin ?SUGEY ?Susceptible <=0.12 ?? ug/ml ??Nitrofurantoin ?SUGEY ?Susceptible ?? <=16 ?? ug/ml ??Tobramycin ?SUGEY ?Susceptible ?<=1 ?? ug/ml ??Trimeth/Sulfa ? SUGEY ?Susceptible ?? <=20 ?? ug/ml URINE SPECIMEN OBTAINED BY CLEAN CATCH PROCEDURE / Unknown 10/25/2011 11:16 AM CDT 10/25/2011 11:35 AM CDT Narrative Resulting Agency Comment Performed By [facility];[address];[place] [address] Moreno Duran MD LAB - MICROBIOLOGY Sheree WATTS [facility] [address] [place] [address]
--- OUTSIDE RECORDS SUMMARY | 2024-07-19 15:13 | XMS_ITS | Referral Summary ---
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
== END 2024-07-17 09:37 | disposition home or self-care (01) ==
PROVIDERS: PCP Family Medicine; Visit Provider Internal Medicine Gastroenterology
PROC: 0DJD8ZZ Inspection of Lower Intestinal Tract, Via Natural or Artificial Opening Endoscopic (ICD-10-PCS; CPT 45378; principal; 2024-07-17 09:00)
DX: R19.5 Other fecal abnormalities (principal); D12.0 Benign neoplasm of cecum; D12.4 Benign neoplasm of descending colon; K57.30 Diverticulosis of large intestine without perforation or abscess without bleeding; K64.8 Other hemorrhoids
CPT/HCPCS: 45380; 45385; 88305; J2003; J2704; J7120

== ENCOUNTER 2024-12-14 13:21 | Outpatient (CLI) | payer MEDICARE, SELFPAY ==
--- NOTE | 2024-12-14 13:42 | ECHO_ITS ---
Patient Info Name: Elke Pink Age: 69 years : 1955 Gender: Female Ht: 61 in Wt: 155 lbs BSA: 1.76 m2 HR: 42 bpm BP: 134 / 67 mmHg Technical Quality: Good Exam Date: 12/14/2024 1:48 PM Patient Status: O Admit Date: 12/14/2024 Exam Type: CA echo doppler color flow Complete two-dimensional, color flow and Doppler transthoracic echocardiogram is performed. Telegraph Editor: Ashli Tucker Attending Provider: Jason Bravo DO Summary 1. Complete two-dimensional, color flow and Doppler transthoracic echocardiogram is performed. 2. Left ventricular chamber dimension is normal. 3. Left ventricular systolic function is normal, estimated at 60-65. 4. The left ventricular diastolic function is grade I diastolic dysfunction. 5. E/e' 9 is minimally elevated. 6. Left atrial chamber dimension is mildly enlarged. 7. The mitral valve has mild posterior prolapse. 8. There is trace mitral valve regurgitation. 9. No pulmonary hypertension, estimated pulmonary arterial systolic pressure is 33 mmHg. Left Ventricle E/e' 9 is minimally elevated. Left ventricular chamber dimension is normal. Left ventricular systolic function is normal, estimated at 60-65. The left ventricular diastolic function is grade I diastolic dysfunction. Right Ventricle Right ventricular chamber dimension is normal. Right ventricular systolic function is normal. Left Atria Left atrial chamber dimension is mildly enlarged. Right Atria Right atrial chamber dimension is normal. Aortic Valve The aortic valve is trileaflet. There is no aortic valve stenosis. There is no aortic valve regurgitation. Pulmonic Valve There is no pulmonic regurgitation. Mitral Valve The mitral valve has mild posterior prolapse. There is no mitral valve stenosis. There is trace mitral valve regurgitation. Tricuspid Valve There is no tricuspid valve regurgitation. No pulmonary hypertension, estimated pulmonary arterial systolic pressure is 33 mmHg. Pericardium/Pleural There is no pericardial effusion. Inferior Vena Cava Normal inferior vena cava with >50% collapse upon inspiration consistent with normal right atrial pressure, 5 mmHg. Aorta The aortic root size at the sinus of Valsalva is normal. Left Ventricular Outflow Tract Name Value Normal LVOT 2D LVOT Diameter 1.9 cm LVOT Doppler LVOT Peak Velocity 95 cm/s LVOT Peak Gradient 4 mmHg LVOT Mean Gradient 2 mmHg LVOT VTI 22 cm LVOT VTI/AV VTI Ratio 0.8 LVOT Stroke Volume 62 ml LVOT CO 4.4 l/min LVOT CI 2.5 l/min/m2 Pulmonic Valve Name Value Normal RVOT Doppler RVOT Peak Velocity 65 cm/s RVOT Peak Gradient 2 mmHg PV Doppler PV Peak Velocity 89 cm/s PV Peak Gradient 3 mmHg Mitral Valve Name Value Normal MV Diastolic Function MV E Peak Velocity 67 cm/s MV A Peak Velocity 97 cm/s MV E/A 0.7 MV Decel Time (PW) 180 ms Tricuspid Valve Name Value Normal TV Regurgitation Doppler TR Peak Velocity 263 cm/s TR Peak Gradient 28 mmHg Estimated PAP/RSVP RA Pressure 5 mmHg <=5 PA Systolic Pressure 33 mmHg <36 RV Systolic Pressure 33 mmHg <36 TV Annular TDI TV Lateral Radha s' Velocity 11.1 cm/s >=9.5 Aorta Name Value Normal Ascending Aorta Ao Root Diameter (MM) 3.0 cm Ao Root Diam Index (MM) 1.7 cm/m2 Aortic Valve Name Value Normal AV Doppler AV Peak Velocity 124 cm/s AV Peak Gradient 6 mmHg AV Mean Gradient 4 mmHg AV VTI 29 cm AV Area (Cont Eq VTI) 2.2 cm2 >=3.0 AV Area (Cont Eq Fede) 2.2 cm2 AV DI (Fede) 0.77 AV Regurgitation 2D LVOT Area 2.8 cm2 Ventricles Name Value Normal LV Dimensions 2D/MM IVS Diastolic Thickness (2D) 0.6 cm 0.6-1.0 IVS Diastole Thickness (MM) 0.7 cm 0.6-0.9 LVID Diastole (2D) 5.1 cm 3.8-5.2 LVID Diastole (MM) 6.0 cm 3.8-5.2 LVIW Diastolic Thickness (2D) 0.7 cm 0.6-0.9 LVIW Diastolic Thickness (MM) 0.8 cm 0.6-0.9 LVID Systole (2D) 3.5 cm 2.2-3.5 LVID Systole (MM) 3.7 cm 2.2-3.5 LVOT Diameter 1.9 cm LV Mass (2D Cubed) 110.69 g 67.00-162.00 LV Mass Index (2D Cubed) 63 g/m2 43-95 Relative Wall Thickness (2D) 0.28 <=0.42 LV Mass (MM Cubed) 172.41 g 67.00-162.00 LV Mass Index (MM Cubed) 98 g/m2 43-95 Relative Wall Thickness (MM) 0.26 LV Fractional Shortening/Ejection Fraction 2D/MM LV Fractional Shortening (2D) 30 % 27-45 LV Fractional Shortening (MM) 38 % 27-45 LV EF (MM Teichholz) 68 % LV EF (2D Teichholz) 58 % LV Diastolic Volume (4C MOD) 54 ml LV EF (4C MOD) 55 % LV Diastolic Volume (2C MOD) 59 ml LV EF (2C MOD) 61 % LV Diastolic Volume (BP MOD) 56 ml 46-106 LV Diastolic Volume Index (BP MOD) 32 ml/m2 29-61 LV Systolic Volume (BP MOD) 24 ml 14-42 LV Systolic Volume Index (BP MOD) 14 ml/m2 8-24 LV EF (BP MOD) 57 % 54-74 LV Diastolic Length (4C) 7.8 cm LV Systolic Length (4C) 6.3 cm LV Stroke Volume (4C MOD) 29 ml Atria Name Value Normal LA Dimensions LA Dimension (MM) 4.3 cm 2.7-3.8 LA Volume (4C A-L) 67 ml LA Volume (BP A-L) 56 ml RA Dimensions RA Systolic Major [place] Length (4C) 5.1 cm 2.2-2.8 RA Area (4C) 14.0 cm2 <=18.0 Report Signatures
== END 2024-12-14 13:22 | disposition home or self-care (01) ==
PROVIDERS: PCP Family Medicine; Visit Provider Internal Medicine Cardiovascular Disease
DX: R93.1 Abnormal findings on diagnostic imaging of heart and coronary circulation (principal); R00.2 Palpitations
CPT/HCPCS: 93306